=== PATIENT | male | born 1995 | race Two or more races ===

== ENCOUNTER 2024-08-18 02:51 | Emergency (ER) | payer MEDICAID, SELFPAY ==
[2024-08-18 02:59] VITALS: BP 114/65; PULSE 114; RESP 18; TEMP 36.1; O2SAT 98
[2024-08-18 03:13] VITALS: PULSE 115; RESP 18; O2SAT 99; BMI 19.3
--- NOTE | 2024-08-18 03:18 | EKG_ITS ---
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
[2024-08-18] MEDS: HYDROmorphone INJ 2 MG/ML VIAL 1 MG IVP ×2 (03:25→08:15)
[2024-08-18 03:34] LABS: Lactate (Lactic Acid) 2.4 mMol/L (0.4-2.0)
[2024-08-18 03:36] LABS: Basophils # (Auto) 0.1 Thou/mm3 (0.0-0.2); Basophils % (Auto) 1 % (0-2.5); Eosinophils # (Auto) 0.2 Thou/mm3 (0.0-0.5); Eosinophils % (Auto) 2 % (0-10); Hematocrit 26.9 % (41.0-53.0); Hemoglobin 9.2 g/dL (13.5-16.0); Immature Granulocytes % (Auto) 1 % (0-0); Immature Granulocytes Auto 0.07 Thou/mm3 (0.00-0.00); Lymphocytes # (Auto) 1.3 Thou/mm3 (1.0-4.8); Lymphocytes % (Auto) 11 % (10-50); Mean Corpuscular HGB Conc 34.2 g/dl (31.0-37.0); Mean Corpuscular Hemoglobin 32.5 pg (25.0-35.0); Mean Corpuscular Volume 95 fL (80-100); Monocytes # (Auto) 0.9 Thou/mm3 (0.0-0.8); Monocytes % (Auto) 7 % (0-12); Neutrophils # (Auto) 9.9 Thou/mm3 (1.8-7.7); Neutrophils % (Auto) 80 % (37-80); Nucleated Red Blood Cell % 0 /100 WBC (0); Platelet Count 257 Thou/mm3 (140-440); Red Blood Count 2.83 Miln/mm3 (4.50-5.90); White Blood Count 12.4 Thou/mm3 (3.8-10.6)
--- NOTE | 2024-08-18 03:37 | PD.EDRME ---
Rapid Medical Screening Exam RME Arrival date/time: 08/18/24 02:51 Chief Complaint: Abdominal Pain Time Seen by Provider: 08/18/24 03:23 Vital signs: Vital Signs Temperature 97.0 F 08/18/24 02:59 Pulse Rate 114 H 08/18/24 02:59 Respiratory Rate 18 08/18/24 02:59 Blood Pressure 114/65 08/18/24 02:59 Pulse Oximetry (%) 98 08/18/24 02:59 Oxygen Delivery Method Room Air 08/18/24 02:59 RME Narrative: 29yo male MIRELLA presents to the ED for a chief complaint of right-sided abdominal pain. Patient states he came here from [place] 2 days ago. He states he was recently discharged from a hospital there last Monday after being admitted and diagnosed with liver failure. He is not taking any pain medications at this time.
[2024-08-18 03:54] LABS: Ammonia 36 uMol/L (11-32)
[2024-08-18 03:57] LABS: Alanine Aminotransferase 15 U/L (10-49); Albumin, Serum 2.9 gm/dL (3.5-5.0); Albumin/Globulin Ratio 0.5 (1.2-2.2); Alcohol, Blood Medical < 3.0 mg/dL (0-10.0); Alkaline Phosphatase 130 U/L (46-116); Anion Gap 7 (7-16); Aspartate Amino Transferase 51 U/L (0-34); BUN/Creatinine Ratio 14 Ratio (12-20); Bilirubin,Total 5.7 mg/dL (0.3-1.2); Blood Urea Nitrogen 10 mg/dL (9-23); Calcium 8.6 mg/dL (8.3-10.6); Calcium (Corrected) 9.5 mg/dL (8.5-10.1); Carbon Dioxide 27.7 mMol/L (20.0-31.0); Cardiac Risk Estimate 7.6 RATIO (4.0-6.7); Chloride 100 mMol/L (98-107); Cholesterol 174 mg/dL (132-200); Creatinine (Component) 0.7 mg/dL (0.6-1.3); Estimated Creatinine Clearance 117.7 mL/min (>60); Globulin 5.3 gm/dL (2.3-3.5); Glucose 104 mg/dL (74-106); HDL Cholesterol 23 mg/dL (40-60); LDL Cholesterol,Calculated 131 mg/dL (0-130); Lipase 112 U/L (12-53); Osmolality,Calculated 269 (275-295); Potassium 3.4 mMol/L (3.4-5.1); Sodium 135 mMol/L (136-145); Total Protein 8.2 gm/dL (5.7-8.2); Triglycerides 99 mg/dL (30-150); eGFR > 60 See Note
[2024-08-18 04:02] LABS: Procalcitonin 0.15 ng/ml (0.0-0.49)
[2024-08-18 04:06] LABS: Sed Rate (ESR) 55 mm/hr (0-15)
--- NOTE | 2024-08-18 04:17 | PD.EDABDPN ---
ED Abdominal Pain RME/HPI General Chief Complaint: Abdominal Pain Stated complaint: ABD PAIN Time seen by provider: 08/18/24 03:23 Arrival date/time: 08/18/24 02:51 RME / HPI RME / HPI narrative: 29yo male MIRELLA presents to the ED for a chief complaint of right-sided abdominal pain. Patient states he came here from [place] 2 days ago. He states he was recently discharged from a hospital there last Monday after being admitted and diagnosed with liver failure. He is not taking any pain medications at this time. ---- Dr. Cornelius's Main ED Evaluation: Related Data Allergies Allergy/AdvReac Type Severity Reaction Status Date / Time No Known Allergies Allergy Verified 08/18/24 03:13 Review of Systems Review of Systems Systems Reviewed: All systems reviewed, normal except as documented Past Medical History Social History SMOKING STATUS: Former smoker Course Quality Measures none Orders Category Date Time Status EKG (ED ONLY) *Do not use* NOW Care 08/18/24 03:19 Active Insert IV NOW Care 08/18/24 03:20 Active EKG (ED Only) Stat Exams 08/18/24 03:18 Ordered Alcohol, Blood Medical Stat Lab 08/18/24 03:22 Completed Ammonia Stat Lab 08/18/24 03:22 Completed CBC Stat Lab 08/18/24 03:22 Completed Comprehensive Metabolic Panel Stat Lab 08/18/24 03:22 Completed Drug Screen,Urine Stat Lab 08/18/24 03:19 Ordered Lactate (Lactic Acid) Stat Lab 08/18/24 03:22 Results Lipase Stat Lab 08/18/24 03:22 Completed Lipid Panel Stat Lab 08/18/24 03:22 Completed Procalcitonin Stat Lab 08/18/24 03:22 Completed Sed Rate (ESR) Stat Lab 08/18/24 03:22 Completed Type and Screen Stat Lab 08/18/24 03:18 Ordered UA [Urinalysis] Stat Lab 08/18/24 03:19 Ordered HYDROmorphone INJ [Dilaudid Inj] Med 08/18/24 03:18 Discontinued 1 mg IVP X1 ONE Vital Signs Vital signs: Vital Signs Temperature 97.0 F 08/18/24 02:59 Pulse Rate 114 H 08/18/24 02:59 Respiratory Rate 18 08/18/24 02:59 Blood Pressure 114/65 08/18/24 02:59 Pulse Oximetry (%) 98 08/18/24 02:59 Oxygen Delivery Method Room Air 08/18/24 02:59 Pulse ox is 98% on room air, which is normal according to my interpretation. Abdominal Pain MDM Patient data External records reviewed:: [facility] previous records (Per chart review, patient has no previous ED visits or admissions to this facility.) Clinical information provided by:: patient Social determinants that could affect healthcare access:: none Patient has the following chronic illnesses:: cirrhosis How is presenting disease/condition affected by chronic disease/condition?: caused by Evaluation data The following diagnostics were reviewed and interpreted by me:: lab results Lab and/or radiology exams considered but not ordered:: none Interpretation Summary: WBC count is elevated at 12.4, HnH is stable at 9.2/26.9, Lactic Acid is elevated at 2.4, Total Bilirubin is elevated at 5.7, AST and Alkaline Phosphatase are elevated, Albumin is low at 2.9, Lipase is elevated at 112, Procalcitonin is normal, Blood alcohol is negative, according to my interpretation. Medications / Prescriptions Medications or Prescriptions considered but not ordered:: none Medication administrations:: Medication Administration History Discontinued Medications Hydromorphone HCl (Hydromorphone Inj 2 Mg/Ml Vial) 1 mg IVP X1 ONE Stop: 08/18/24 03:19 Last Admin: 08/18/24 03:25 Dose: 1 mg Documented By: DB see above Discharge Plan Prescriptions/Referrals Referrals: No Primary/Family,Physician [Primary Care Provider] - In 1 week Patient/Caregiver Discharge Instructions Print Language: [place]
[2024-08-18 04:27] VITALS: BP 130/91; PULSE 105; RESP 18; O2SAT 100
[2024-08-18] MEDS: ONDANSETRON INJ 2 MG/ML INJ 2 ML 4 MG IV (04:40)
[2024-08-18] MEDS: HYDROmorphone INJ 2 MG/ML VIAL 0.5 MG IVP (04:41)
--- NOTE | 2024-08-18 06:30 | EDNOTE_ITS ---
ED Abdominal Pain RME/HPI General Chief Complaint: Abdominal Pain Stated complaint: ABD PAIN Time seen by provider: 08/18/24 03:23 Arrival date/time: 08/18/24 02:51 Limitations: no limitations RME / HPI RME / HPI narrative: 29 year old male with history of recently diagnosed liver cirrhosis 4 months ago, s/p cholecystostomy placed ~ 1 month ago, currently on Augmentin presents to the ED BIBA for abdominal pain today. States pain is located most to the right upper quadrant that is waxing and waning, described as sharp stabbing in sensation, rating 10/10. Denies fevers, chills, sweats, chest pain, cough, shor tness of breath, vomiting, or constipation. The patient reports arriving from [place] 3 days ago, on Monday. He states that he had been consuming two 1.75L bottles of [employer] vodka daily. Approxima tely 4-5 months ago, he stopped drinking alcohol abruptly and soon after began experiencing frequent vomiting and generalized weakness. He consulted with his PCP in [place], who ordered laboratory tests. The patient was subsequently referred to [facility] in [place], [place], where he was admitted for approximately three weeks. Following discharge, he began to feel unwell again about one week later and was re-admitted for a month at [facility] in [place], [place]. During this admission, he was diagnosed with liver cirrhosis, liver failure, and cholecystitis, for which he underwent a cholecystostomy. He also received multiple blood transfusions. Four days ago, he requested to return home and was discharged, flew in three days ago. The patient had an appointment with his PCP three days ago, and medical records are pending to be faxed. Current medications include: Spiranolactone, Gabapentin, Potassium, Hydroxyzine, Augmentin, Folic acid, Lasix, Lactulose BID PCP: Dr. Munroe at [facility] Related Data Home Medications ?Medication ?Instructions ?Recorded ?Confirmed folic acid 1 mg tablet 1 mg PO QDAY 09/04/24 09/04/24 gabapentin 300 mg capsule 300 mg PO QDAY 09/04/24 09/04/24 spironolactone 25 mg tablet 25 mg PO QDAY 09/04/24 09/04/24 thiamine HCl (vitamin B1) 100 mg 100 mg PO QDAY 09/04/24 09/04/24 tablet tramadol 50 mg tablet 50 mg PO BID PRN Pain 09/04/24 09/04/24 Previous Rx's ?Medication ?Instructions ?Recorded ciprofloxacin HCl 500 mg tablet 500 mg PO BID 5 days #9 tabs 09/06/24 lactulose 20 gram/30 mL oral 10 g (15 mL) PO TID 30 days #1,350 09/06/24 solution mL linezolid 600 mg tablet 600 mg PO BID 5 days #9 tabs 09/06/24 Allergies Allergy/AdvReac Type Severity Reaction Status Date / Time No Known Allergies Allergy Unverified 09/05/24 10:01 Review of Systems Review of Systems Narrative Review of Systems: GEN: No fever, no chills, no weight loss EYES: No discharge, no visual changes, no pain HEENT: No ear pain, no congestion, no sore throat PULM: No shortness of breath, no cough, no congestion CV: No chest pain, no dyspnea on exertion, no palpitations GI: No nausea, no vomiting, no diarrhea, +pain, no constipation : No frequency, no urgency, no dysuria MUSC/SKEL: No joint pain, no back pain SKIN: No rash NEURO: No weakness, no headache Past Medical History Social History SMOKING STATUS: Former smoker ED Exam General Limitations: Present no limitations General appearance: Present alert and other (Appears generalized weak, jaundice ) Head Head exam: Present atraumatic, normocephalic and normal inspection Eye Eye exam: Present PERRL, EOMI and scleral icterus ENT ENT exam: Present normal exam, normal oropharynx and mucous membranes moist Neck Neck exam: Present normal inspection, full ROM and trachea midline Chest Chest inspection: Present normal inspection and symmetric chest wall rise Respiratory Respiratory exam: Present normal lung sounds bilaterally Cardiovascular Cardiovascular exam: Present regular rate, normal rhythm and normal heart sounds Abdominal Exam Abdominal exam: Present soft, distention (mild), tenderness (RUQ and epigastric TTP ) and normal bowel sounds; Absent guarding, rebound or Wilson's sign Extremities Exam Extremities exam: Present pedal edema (+1 ) Back Exam Back exam: Present normal inspection and full ROM Neurological Exam Neurological exam: Present alert, oriented X3 and CN II-XII intact Psychiatric Psychiatric exam: Present normal affect and normal mood Skin Skin exam: Present warm, dry, intact and other (Jaundice) Course Quality Measures none Orders Category Date Time Status CT Screening NOW Care 08/18/24 06:46 Completed EKG (ED ONLY) *Do not use* NOW Care 08/18/24 03:19 Completed Insert IV NOW Care 08/18/24 03:[address] abdomen pelvis w con Stat Exams 08/18/24 06:46 Completed EKG (ED Only) Stat Exams 08/18/24 03:18 Draft XR chest 1V portable Stat Exams 08/18/24 06:46 Completed Alcohol, Blood Medical Stat Lab 08/18/24 03:22 Completed Ammonia Stat Lab 08/18/24 03:22 Completed CBC Stat Lab 08/18/24 03:22 Completed Comprehensive Metabolic Panel Stat Lab 08/18/24 03:22 Completed Drug Screen,Urine Stat Lab 08/18/24 08:39 Completed Lactate (Lactic Acid) Stat Lab 08/18/24 03:22 Completed Lactic Acid, 3 HR Stat Lab 08/18/24 06:55 Completed Lipase Stat Lab 08/18/24 03:22 Completed Lipid Panel Stat Lab 08/18/24 03:22 Completed Procalcitonin Stat Lab 08/18/24 03:22 Completed Sed Rate (ESR) Stat Lab 08/18/24 03:22 Completed Type and Screen Stat Lab 08/18/24 03:22 Completed UA [Urinalysis] Stat Lab 08/18/24 08:39 Completed HYDROmorphone INJ [Dilaudid Inj] Med 08/18/24 04:27 Discontinued 0.5 mg IVP X1 ONE HYDROmorphone INJ [Dilaudid Inj] Med 08/18/24 03:18 Discontinued 1 mg IVP X1 ONE HYDROmorphone INJ [Dilaudid Inj] Med 08/18/24 08:08 Discontinued 1 mg IVP X1 ONE Hydromorphone HCl [Dilaudid] Med 08/18/24 09:59 Discontinued 2 mg PO X1 ONE Ondansetron Inj [Zofran Inj] Med 08/18/24 04:27 Discontinued 4 mg IV X1 ONE Ondansetron Inj [Zofran Inj] Med 08/18/24 04:28 Discontinued 4 mg IV X1 ONE Reevaluation(s) Reevaluation #1: Patient remains clinically stable throughout the emergency department visit. We reviewed all the results, analysis, and treatment plans. Patient is amenable to discharge. Strict return precautions were outlined. Patient was discharged in stable condition. Time: 10:00 Vital Signs Vital signs: Vital Signs Temperature 97.0 F 08/18/24 02:59 Pulse Rate 114 H 08/18/24 02:59 Respiratory Rate 18 08/18/24 02:59 Blood Pressure 114/65 08/18/24 02:59 Pulse Oximetry (%) 98 08/18/24 02:59 Oxygen Delivery Method Room Air 08/18/24 02:59 Pulse ox is 98% on room air which is adequate. Abdominal Pain MDM MDM Narrative MDM Narrative:: Kavya Carrion am scribing for and in the presence of Dr. Schmitz. Patient data External records reviewed:: None (No previous records for review ) Clinical information provided by:: patient Social determinants that could affect healthcare access:: none (Former alcohol abuse, quit 4-5 months ago ) Patient has the following chronic illnesses:: recently diagnosed liver cirrhosis 4 months ago, s/p cholecystostomy placed ~ 1 month ago, currently on Augmentin How is presenting disease/condition affected by chronic disease/condition?: exacerbated by Evaluation data The following diagnostics were reviewed and interpreted by me:: lab results, radiology exam(s) and EKG tracing(s) (Sinus tachycardia, rate 104, left axis devition, no ectopy, generalized ST abdnormalities, no ischemia ) Lab and/or radiology exams considered but not ordered:: None Interpretation Summary: Ordering Physician: Nitin Schmitz MD Date of Service: 08/18/24 Procedure(s): CT abdomen pelvis w con Accession Number(s): [id number] cc: Jhony Paula MD; NO PRIMARY/FAMILY,PHYSICIAN; Nitin Schmitz MD~ Examination: CT abdomen with intravenous contrast CT pelvis with intravenous contrast 2-D coronal reconstructions 2-D sagittal reconstructions Date and time of exam:August 18, 2024 0731 hrs. Indications: Cirrhosis, status post drain placement biliary drainage tube 4 weeks ago, onset right upper abdominal pain beginning last night. CTDI: vol (mGy) 5.65 DLP: (mGycm) 293 Technique: Multiple axial sections of the abdomen and pelvis have been obtained. 64 slice high-resolution scanner used. 3 mm axial sections have been obtained, post intravenous injection 60 cc Isovue-370 2-D sagittal, coronal reconstructions obtained. Low dose protocols were performed. One or more of the following dose reduction techniques were used; automated exposure control, adjustment of the mA and/or KV according to patient size, use of iterative reconstruction technique. Findings: Atelectasis versus pneumonia right base with large right pleural effusion Cirrhosis, liver nodular in contour Right percutaneous cholecystostomy drainage catheter in satisfactory position with collapse of the gallbladder Prominent splenomegaly with portosystemic collateral vessels medial to the spleen Esophageal and perigastric varices, mild to moderate ascites No pancreatic mass Moderate renal parenchymal scar formation Aorta normal size Anasarca Normal appendix No bowel obstruction Urinary bladder intact No prostatomegaly Mild osteopenia Impression: Atelectasis versus pneumonia right base with large right pleural effusion Cirrhosis, mild to moderate ascites Esophageal and perigastric varices Right percutaneous cholecystostomy drainage tube in satisfactory position with collapse of the gallbladder Dictated By: Jhony Paula MD Signed By: <Electronically signed by Jhony Paula MD in [place]> 08/18/24 0751 ======== === Ordering Physician: Nitin Schmitz MD Date of Service: 08/18/24 Procedure(s): XR chest 1V portable Accession Number(s): [id number] cc: Jhony Paula MD; NO PRIMARY/FAMILY,PHYSICIAN; Nitin Schmitz MD~ Examination: AP chest single view Technique: AP portable upright chest single view Exam date and time: August 18, 2024 at 0710 hrs. Indications: Right upper abdominal pain today. Findings: Normal heart size Large right pleural effusion Atelectasis and/or pneumonia right lung Left lung clear No pulmonary edema Impression: Large right pleural effusion Atelectasis and/or pneumonia right lung Dictated By: Jhony Paula MD Signed By: <Electronically signed by Jhony Paula MD in [place]> 08/18/24 0752 Medications / Prescriptions Medications or Prescriptions considered but not ordered:: None Medication administrations:: Medication Administration History Discontinued Medications Hydromorphone HCl (Hydromorphone Inj 2 Mg/Ml Vial) 1 mg IVP X1 ONE Stop: 08/18/24 03:19 Last Admin: 08/18/24 03:25 Dose: 1 mg Documented By: DAVID Hydromorphone HCl (Hydromorphone Inj 2 Mg/Ml Vial) 0.5 mg IVP X1 ONE Stop: 08/18/24 04:28 Last Admin: 08/18/24 04:41 Dose: 0.5 mg Documented By: JOHN Hydromorphone HCl (Hydromorphone Inj 2 Mg/Ml Vial) 1 mg IVP X1 ONE Stop: 08/18/24 08:09 Last Admin: 08/18/24 08:15 Dose: 1 mg Documented By: GUTIERREZ Hydromorphone HCl (Hydromorphone Hcl 2 Mg Tablet) 2 mg PO X1 ONE Stop: 08/18/24 10:00 Last Admin: 08/18/24 10:27 Dose: 2 mg Documented By: GUTIERREZ Ondansetron HCl (Ondansetron Inj 2 Mg/Ml Inj 2 Ml) 4 mg IV X1 ONE; Protocol Stop: 08/18/24 04:28 Last Admin: 08/18/24 04:40 Dose: 4 mg Documented By: JOHN Ondansetron HCl (Ondansetron Inj 2 Mg/Ml Inj 2 Ml) 4 mg IV X1 ONE; Protocol Stop: 08/18/24 04:29 Last Admin: 08/18/24 06:23 Dose: Not Given Documented By: JOHN Non-Admin Reason: Duplicate Medication on eMAR See above Consultations Consultation(s) initiated? (list below): No Diagnosis Differential diagnosis abdominal pain: abdominal pain, calculus of kidney, constipation, pancreatitis and small bowel obstruction Most likely diagnosis given after review of the tests above:: Liver cirrhosis Ascites Pleural effusion Admission Indicated Admission indicated?: not indicated Admission Request Was there a request for admission?: No Disposition Plan Disposition Plan: Discharge Discharge Attestation Discharge Attestation: The patient and all family members were given an opportunity to ask questions and understood the discharge instructions. Discharge instructions specifically effects, indications for sooner follow up or return to the emergency department, and the expected course of current diagnosis. Patient condition: Stable Discharge Plan Plan Patient Disposition: HOME (Self Care) Disposition Comment: Stable for discharge Patient condition on transfer: Stable Prescriptions/Referrals Prescriptions/Med Rec: No Action thiamine HCl (vitamin B1) 100 mg tablet 100 mg PO QDAY Patient Comments: TAKE 1 TABLET BY MOUTH EVERY DAY FOR 30 DAYS tramadol 50 mg tablet 50 mg PO BID PRN (Reason: Pain) Patient Comments: TAKE 1 TABLET BY MOUTH TWICE A DAY NEEDED FOR PAIN FOR 15 DAYS spironolactone 25 mg tablet 25 mg PO QDAY Patient Comments: TAKE 1 TABLET BY MOUTH EVERY DAY FOR 30 DAYS gabapentin 300 mg capsule 300 mg PO QDAY Patient Comments: TAKE 1 CAPSULE BY MOUTH EVERY DAY FOR 30 DAYS folic acid 1 mg tablet 1 mg PO QDAY Patient Comments: TAKE 1 TABLET BY MOUTH EVERY DAY FOR 30 DAYS ciprofloxacin HCl 500 mg tablet 500 mg PO BID 5 Days Qty: 9 0RF linezolid 600 mg Tablet 600 mg PO BID 5 Days Qty: 9 0RF lactulose 20 gram/30 mL Solution 10 g PO TID 30 Days Qty: 1350 0RF Referrals: Michael Munroe MD [Physician] - In 1 week Problem List Clinical Impression: Cirrhosis, Pleural effusion, Ascites Patient/Caregiver Discharge Instructions Discharge Activity: activity as tolerated Education Materials: Pleural Effusion, Understanding Cirrhosis, ED Ascites, ED Cirrhosis, ED Pleural Effusion Additional Instructions: Return to the emergency department for any worsening or any further medical problems You should follow-up with Dr. Munroe on Monday. [facility] openings at 11 AM. You should go there and get your prescription for tramadol. This is a pain medication. Today your test showed that you have a right-sided pleural effusion which is a collection of fluid in your chest, you have a little bit of fluid collection in your abdomen, the biliary drain you have is in the correct position and is functioning properly, you do not have any signs of infection or any other major medical problems going on. But if you feel worse in any way he should come back to the ER and will help Print Language: [place] Island[place] Stand Alone Forms: [employer] Award Info., Patient Portal Info Letter
[2024-08-18 06:31] LABS: Reflex Lactate? Y
--- NOTE | 2024-08-18 06:46 | XR_ITS ---
Examination: CT abdomen with intravenous contrast CT pelvis with intravenous contrast 2-D coronal reconstructions 2-D sagittal reconstructions Date and time of exam:August 18, 2024 0731 hrs. Indications: Cirrhosis, status post drain placement biliary drainage tube 4 weeks ago, onset right upper abdominal pain beginning last night. CTDI: vol (mGy) 5.65 DLP: (mGycm) 293 Technique: Multiple axial sections of the abdomen and pelvis have been obtained. 64 slice high-resolution scanner used. 3 mm axial sections have been obtained, post intravenous injection 60 cc Isovue-370 2-D sagittal, coronal reconstructions obtained. Low dose protocols were performed. One or more of the following dose reduction techniques were used; automated exposure control, adjustment of the mA and/or KV according to patient size, use of iterative reconstruction technique. Findings: Atelectasis versus pneumonia right base with large right pleural effusion Cirrhosis, liver nodular in contour Right percutaneous cholecystostomy drainage catheter in satisfactory position with collapse of the gallbladder Prominent splenomegaly with portosystemic collateral vessels medial to the spleen Esophageal and perigastric varices, mild to moderate ascites No pancreatic mass Moderate renal parenchymal scar formation Aorta normal size Anasarca Normal appendix No bowel obstruction Urinary bladder intact No prostatomegaly Mild osteopenia Impression: Atelectasis versus pneumonia right base with large right pleural effusion Cirrhosis, mild to moderate ascites Esophageal and perigastric varices Right percutaneous cholecystostomy drainage tube in satisfactory position with collapse of the gallbladder
--- NOTE | 2024-08-18 06:46 | XR_ITS ---
Examination: AP chest single view Technique: AP portable upright chest single view Exam date and time: August 18, 2024 at 0710 hrs. Indications: Right upper abdominal pain today. Findings: Normal heart size Large right pleural effusion Atelectasis and/or pneumonia right lung Left lung clear No pulmonary edema Impression: Large right pleural effusion Atelectasis and/or pneumonia right lung
[2024-08-18 06:53] VITALS: BP 113/81; PULSE 101; RESP 20; TEMP 37.1; O2SAT 100
[2024-08-18 07:11] LABS: Lactic Acid, 3 HR 1.6 mMol/L (0.4-2.0)
[2024-08-18 08:15] VITALS: BP 106/68; PULSE 95; RESP 20; TEMP 36.7; O2SAT 99
[2024-08-18 09:01] LABS: Collection Type, Urine Clean Catch
[2024-08-18 09:26] LABS: Amphetamine/Methamp Scrn,U Negative (Negative); Barbiturate Screen,Urine Negative (Negative); Benzodiazepines Screen,Urine Negative (Negative); Benzoylecgonine Screen, Ur Negative (Negative); Fentanyl Screen,Urine Negative (Negative); Opiate Screen,Urine Positive (Negative); THC Screen,Urine Positive (Negative)
[2024-08-18 09:30] LABS: Bilirubin,Urine Negative (Negative); Blood,Urine Negative (Negative); Color,Urine Yellow (Lt Yel-Yel); Glucose, Urine Negative (Negative); Ketones,Urine Negative (Negative); Leukocyte Esterase,Urine Negative (Negative); Nitrite,Urine Negative (Negative); Protein,Urine 1+ (Neg - Trace); RBC,Urine 1 /hpf (0-3); Specific Gravity,Urine 1.021 (1.001-1.035); Squamous Epithelial Cell,Urine < 1 /hpf (0-5); Transitional Epi Cells,Urine < 1 /hpf (0-5); Urobilinogen,Urine Negative mg/dL (0.0-1.0); WBC,Urine 1 /hpf (0-5)
[2024-08-18 09:34] LABS: Clarity,Urine Clear (Clear/Hazy)
[2024-08-18 10:20] VITALS: BP 117/74; PULSE 96; RESP 17; O2SAT 99
[2024-08-18] MEDS: HYDROMORPHONE HCL 2 MG TABLET PO (10:27)
== END 2024-08-18 10:37 | disposition home or self-care (01) ==
PROVIDERS: Emergency Medicine; Emergency Provider Emergency Medicine
DX: K74.60 Unspecified cirrhosis of liver (principal); R18.8 Other ascites; J90 Pleural effusion, not elsewhere classified; I85.00 Esophageal varices without bleeding; I86.4 Gastric varices; R00.0 Tachycardia, unspecified; Z87.891 Personal history of nicotine dependence
CPT/HCPCS: 36415; 71045; 74177; 80053; 80061; 80307; 80320; 81001; 82140; 83605; 83690; 84145; 85025; 85652; 86850; 86900; 86901; 93005; 96374; 96375; 96376; 99285; A4649; J2405; J3490; Q9967; A9270; G0480

== ENCOUNTER 2024-08-28 14:15 | Inpatient (IN) | payer MEDICAID, SELFPAY ==
[2024-08-28] VITALS (10 sets, daily range): BP systolic 101–120; BP diastolic 61–79; PULSE 80–120; RESP 18–97; TEMP 36.7–37.9; O2SAT 97–100
--- NOTE | 2024-08-28 14:36 | XR_ITS ---
Examination: CT abdomen with intravenous contrast CT pelvis with intravenous contrast 2-D coronal reconstructions 2-D sagittal reconstructions Date and time of exam:August 28, 2024 1637 hours Comparison August 18, 2024 INDICATIONS: Diagnosis cirrhosis, onset abdominal pain today. CTDI: vol (mGy) 5.10 DLP: (mGycm) 315 Technique: Multiple axial sections of the abdomen and pelvis have been obtained. 64 slice high-resolution scanner used. 3 mm axial sections have been obtained, post intravenous injection 60 cc Isovue-370 2-D sagittal, coronal reconstructions obtained. Low dose protocols were performed. One or more of the following dose reduction techniques were used; automated exposure control, adjustment of the mA and/or KV according to patient size, use of iterative reconstruction technique. Findings: Large right pleural effusion, atelectasis versus pneumonia right base Cirrhosis, liver irregular in contour Cholecystostomy drainage tube satisfactory position with collapse of the gallbladder Prominent splenomegaly Esophageal varices Perigastric varices Mucosal fold thickening in the stomach No pancreatic mass Mild ascites No hydronephrosis Colonic diverticulosis, no diverticulitis No bowel obstruction No bladder mass No prostatomegaly IMPRESSION: Large right pleural effusion Atelectasis versus pneumonia right base Cirrhosis Prominent splenomegaly Esophageal varices, History varices, gastritis pattern Cholecystostomy drainage catheter satisfactory position with collapse of the gallbladder
--- NOTE | 2024-08-28 14:37 | XR_ITS ---
Examination: AP lateral chest 2 views TECHNIQUE: Upright AP lateral chest 2 views Exam date and time: August 28, 2024 1541 hours INDICATIONS: Leaking from the gallbladder drains 2 3 days FINDINGS: Large right pleural effusion Normal heart size No lobar pneumonia IMPRESSION: Large right pleural effusion
--- NOTE | 2024-08-28 14:38 | PD.EDRME ---
Rapid Medical Screening Exam RME Arrival date/time: 08/28/24 14:15 29-year-old male with medical history significant for cirrhosis with right percutaneous cholecystostomy drainage tube presents with complaints of drainage and pain Chief Complaint: Wound Recheck / Suture Removal Time Seen by Provider: 08/28/24 14:21 Vital signs: Vital Signs Temperature 100.2 F 08/28/24 14:29 Pulse Rate 120 H 08/28/24 14:29 Respiratory Rate 18 08/28/24 14:29 Blood Pressure 120/79 08/28/24 14:29 Pulse Oximetry (%) 100 08/28/24 14:29 Oxygen Delivery Method Room Air 08/28/24 14:29
--- NOTE | 2024-08-28 14:41 | PD.EDADULT ---
ED General RME/HPI General Chief complaint: Wound Recheck / Suture Removal Stated complaint: Possible infection to wound right abdominal incisi Time Seen by Provider: 08/28/24 14:21 Arrival date/time: 08/28/24 14:15 RME / HPI RME / HPI narrative: 08/28/24 14:15 29-year-old male with medical history significant for cirrhosis with right percutaneous cholecystostomy drainage tube presents with complaints of drainage and pain DR. DENIS MAIN ED EVALUATION: 29 year old male with history of liver failure, liver cirrhosis, cholecystitis, s/p cholecystostomy placed ~ 2 months ago presents to the ED for concerns of the cholecystostomy tube leaking. Reports there is green orange material leaking from the cholecystostomy site that began 2 days ago. Accompanied by pain and discomfort to the surrounding area. Denies fevers, chills, sweats, vomiting, diarrhea, or urinary symptoms. Related Data Allergies Allergy/AdvReac Type Severity Reaction Status Date / Time NKA* Allergy Uncoded 08/23/24 08:26 Review of Systems Review of Systems Narrative Review of Systems: Constitutional: DENIES; Fevers Eyes: DENIES; Loss of vision Head/Ear/Nose: DENIES; Loss of hearing Throat: DENIES; Dysphagia Cardiovascular: DENIES; Chest pain, dyspnea or syncope Respiratory: DENIES; Shortness of breath Gastrointestinal: SEE HPI +abd pain with drainage from the cholecystostomy tube DENIES; Rectal bleeding or melena. Genitourinary: DENIES; Dysuria (painful or difficult urination) Musculoskeletal: DENIES; Arthralgia (pain in a joint),; Skin: DENIES; Rash Neurological: DENIES; Loss of function or movement Psychiatric: DENIES; recent major life stressor, emotional problem, illicit drug use or abuse Endocrinology: DENIES; Weight change Hematologic/Lymphatic: DENIES; Abnormal bruising Allergic/Immunologic: DENIES; Urticaria (hives) Past Medical History Past Medical History CARDIAC: Negative Cardiac Disorders or Congestive Heart Failure RESPIRATORY: Negative Chronic Obstructive Pulmonary Disease (COPD) or Asthma GASTROINTESTINAL: Positive Cirrhosis GENITOURINARY: Negative Renal Disease ENDOCRINE: Negative Diabetes Mellitus Type 1 or Diabetes Mellitus Type 2 HEMATOLOGIC: Negative Sickle Cell Disease Social History SMOKING STATUS: Never smoker ED Exam Narrative Physical exam: Physical Exam: General: The vital signs were reviewed. Hyperpigmented thin facies with temporal wasting and appears chronically ill the patient is non-toxic, in no apparent distress and appears healthy with a patent airway, no respiratory distress and has no apparent circulatory problems. Head & Scalp: Normocephalic, atraumatic. Face: Appears normal and is without lesions, deformity. Ears: Left external pinna appears normal. Right external pinna appears normal. Eyes: The sclera is anicteric. No obvious photophobia. The Left and Right Orbit/Lid/Conjunctiva appears normal without swelling, discoloration or injection. Nose: The nose is without deformity, discharge or tenderness; Throat: Appears normal. The mucous membranes are pink and moist without exudates, redness or mass seen. The tongue appears normal. Neck: The neck is supple and no apparent mass or adenopathy. Chest: The chest wall is normal in size and symmetry and has no chest wall tenderness or crepitus. The patient displays normal ventilator effort without retractions, accessory muscle use and has adequate air movement bilaterally with no wheezes and no rales. Cardiovascular: Regular rate and rhythm; No murmurs, rubs, or gallops; Gastrointestinal: The abdomen appears normal. No obvious hernias or mass. The abdomen as a drain coming from the right upper quadrant dissolving a cystostomy drain. Otherwise the remaining abdomen is soft and benign, non-distended, with no pain, no guarding and no rebound tenderness. Bowel sounds are present and normal sounding. No CVA tenderness. Genitourinary: Normal inspection Back/Spine: Nontender Extremities/Musculoskeletal/lymphatic: The bilateral upper and lower extremities are warm. There is no evidence of arterial insufficiency. There is no evidence of venous insufficiency/edema. The patient spontaneously moves bilateral upper and lower extremities with no pain and no limitation of movement. There is no apparent, injury or trauma. Skin: The skin is warm, dry and intact. No rashes. No petechia. No purpura. No abnormal bruising. The color is appropriate with no cyanosis. Scattered spider angiomata Mental status/Psychiatric: Mental status is appropriate for age. The patient has no apparent delusions, visual hallucinations, no apparent audible hallucinations. The patient has no apparent suicidal thoughts/ideation and no apparent homicidal thoughts/ideation. Neurological: The patient is awake, alert, interactive, cordial, cooperative and is oriented to name and situation. The patient follows commands and answers historical question with no impairment. There is no visual disturbance apparent. The pupils are equal and reactive bilaterally with normal eye movements and no diplopia The bilateral upper and lower extremities have normal strength, normal range of motion and normal functioning. The gait, station and balance appear to be baseline with no acute change Course Quality Measures none Orders Category Date Time Status Bedside Blood Glucose NOW Care 08/28/24 14:[address] Screening NOW Care 08/28/24 14:36 Active Insert IV NOW Care 08/28/24 14:37 Active MRI Screening NOW Care 08/28/24 17:[address] abdomen pelvis w con Stat Exams 08/28/24 14:[address] head/brain wo con Stat Exams 08/28/24 14:48 Completed MR head/brain wo con Stat Exams 08/28/24 Ordered XR chest 2V Stat Exams 08/28/24 14:37 Completed Alcohol, Blood Medical Stat Lab 08/28/24 15:10 Completed Ammonia Stat Lab 08/28/24 15:10 Completed B-Type Natriuretic Peptide Stat Lab 08/28/24 15:10 Completed Blood Culture (Lab) Stat Lab 08/28/24 15:10 Received CBC Stat Lab 08/28/24 15:10 Completed Comprehensive Metabolic Panel Stat Lab 08/28/24 15:10 Completed Drug Screen,Urine Stat Lab 08/28/24 15:48 Completed Lactic Acid [Lactate (Lactic Acid)] Stat Lab 08/28/24 15:10 Results Partial Thromboplastin Time Stat Lab 08/28/24 15:10 Completed Procalcitonin Stat Lab 08/28/24 15:10 Completed Prothrombin Time with INR Stat Lab 08/28/24 15:10 Completed Troponin I Stat Lab 08/28/24 15:10 Completed Type and Screen Stat Lab 08/28/24 15:10 Completed Urinalysis Stat Lab 08/28/24 15:48 Completed Urinalysis, C/S if Indicated Stat Lab 08/28/24 15:48 Completed Piper/Tazo 3.375 gm [Zosyn] Med 08/28/24 14:48 Discontinued 3.375 gm in 50 ml IV X1 Sodium Chloride 0.9% 1000 ml [Ns] 1,000 ml Med 08/28/24 14:48 Discontinued IV 1,000 mls/hr Sodium Chloride 0.9% 1000 ml [Ns] 2,000 ml Med 08/28/24 14:48 Active IV 150 mls/hr Vital Signs Vital signs: Vital Signs Temperature 100.2 F 08/28/24 14:29 Pulse Rate 120 H 08/28/24 14:29 Respiratory Rate 18 08/28/24 14:29 Blood Pressure 120/79 08/28/24 14:29 Pulse Oximetry (%) 100 08/28/24 14:29 Oxygen Delivery Method Room Air 08/28/24 14:29 Pulse ox is 100% on room air which is adequate. [facility] Patient data External records reviewed:: [facility] previous records (I reviewed ED visit on 08/18/2024) Clinical information provided by:: patient Social determinants that could affect healthcare access:: alcohol use (Former alcohol use ) Patient has the following chronic illnesses:: liver failure, liver cirrhosis, cholecystitis, s/p cholecystostomy placed ~ 2 months ago How is presenting disease/condition affected by chronic disease/condition?: exacerbated by Evaluation data The following diagnostics were reviewed and interpreted by me:: lab results and radiology exam(s) Lab and/or radiology exams considered but not ordered:: None Interpretation Summary: Ordering Physician: Mckenna LAM)Junior NP Date of Service: 08/28/24 Procedure(s): XR chest 2V Accession Number(s): [id number] cc: Mckenna LAM)Junior NP; Jhony Paula MD~ Examination: AP lateral chest 2 views TECHNIQUE: Upright AP lateral chest 2 views Exam date and time: August 28, 2024 1541 hours INDICATIONS: Leaking from the gallbladder drains 2 3 days FINDINGS: Large right pleural effusion Normal heart size No lobar pneumonia IMPRESSION: Large right pleural effusion Dictated By: Jhony Paula MD Signed By: <Electronically signed by Jhony Paula MD in OV> 08/28/24 1504 Ordering Physician: Junior Andres NP, NP Date of Service: 08/28/24 Procedure(s): CT abdomen pelvis w con Accession Number(s): [id number] cc: Mckenna (HI),Junior DO; Michael Munroe MD; Jhony Paula MD~ Examination: CT abdomen with intravenous contrast CT pelvis with intravenous contrast 2-D coronal reconstructions 2-D sagittal reconstructions Date and time of exam:August 28, 2024 1637 hours Comparison August 18, 2024 INDICATIONS: Diagnosis cirrhosis, onset abdominal pain today. CTDI: vol (mGy) 5.10 DLP: (mGycm) 315 Technique: Multiple axial sections of the abdomen and pelvis have been obtained. 64 slice high-resolution scanner used. 3 mm axial sections have been obtained, post intravenous injection 60 cc [id number] 2-D sagittal, coronal reconstructions obtained. Low dose protocols were performed. One or more of the following dose reduction techniques were used; automated exposure control, adjustment of the mA and/or KV according to patient size, use of iterative reconstruction technique. Findings: Large right pleural effusion, atelectasis versus pneumonia right base Cirrhosis, liver irregular in contour Cholecystostomy drainage tube satisfactory position with collapse of the gallbladder Prominent splenomegaly Esophageal varices Perigastric varices Mucosal fold thickening in the stomach No pancreatic mass Mild ascites No hydronephrosis Colonic diverticulosis, no diverticulitis No bowel obstruction No bladder mass No prostatomegaly IMPRESSION: Large right pleural effusion Atelectasis versus pneumonia right base Cirrhosis Prominent splenomegaly Esophageal varices, History varices, gastritis pattern Cholecystostomy drainage catheter satisfactory position with collapse of the gallbladder Dictated By: Jhony Paula MD Signed By: <Electronically signed by Jhony Paula MD in OV> 08/28/24 1702 Ordering Physician: John Denis MD Date of Service: 08/28/24 Procedure(s): CT head/brain wo con Accession Number(s): [id number] cc: Michael Munroe MD; John Denis MD; Jhony Paula MD~ Examination: CT brain head without contrast. 2-D sagittal coronal reconstructions Date and time of exam:August 28, 2024 1626 hours INDICATIONS: Loss of consciousness episode today CTDI: vol (mGy):45.7 DLP: (mGycm):935 Technique: Multiple CT axial sections of the brain have been obtained, 5 mm slice thickness. Contrast has not been administered. 2-D sagittal, coronal reconstructions have been obtained Low dose protocols were performed. One or more of the following dose reduction techniques were used; automated exposure control, adjustment of the mA and/or KV according to patient size, use of iterative reconstruction technique. Findings: No significant ventricular enlargement. Mildly hyperdense rounded area in the left brainstem pontine level, axial image 30, measuring 17 mm Intra-axial or extra-axial hemorrhage density is not seen. No mass effect or midline shift Basal cisterns are not remarkable. Fourth ventricle is midline. Cranial vault intact. Impression: Suspicious for left brainstem mass, pontine level, axial image 30, recommend brain MRI pre and post contrast follow-up Dictated By: Jhony Paula MD Signed By: <Electronically signed by Jhony Paula MD in OV> 08/28/24 1651 Medications Medications considered but not ordered:: None Medication administrations:: Medication Administration History Sodium Chloride (Ns) 2,000 mls @ 150 mls/hr IV .[id number] ONE Stop: 08/29/24 04:07 Discontinued Medications Sodium Chloride (Ns) 1,000 mls @ 1,000 mls/hr IV .Q1H ONE Stop: 08/28/24 15:47 Last Admin: 08/28/24 16:00 Dose: 1,000 mls/hr Documented By: DO Piperacillin/Tazobactam/Dextrose (Zosyn) 3.375 gm in 50 mls @ 100 mls/hr IV X1 ONE Stop: 08/28/24 15:17 Last Admin: 08/28/24 16:01 Dose: 100 mls/hr Documented By: DO See above Consultations Consultation(s) initiated? (list below): Yes Consultation #1 (Physician, Specialty, Details): I spoke with resident Dr. Altamirano working with Dr. Silva. Discussed patients PMHx, HPI, ED course, exam findings, labs, and radiology results. Will come evaluate the patient in the ED. Time: 17:34 Diagnosis Differential Diagnosis ED Complaint MDM: Sepsis, pneumonia, infected pleural effusion, cholecystitis, ascites Most likely diagnosis given after review of the tests above:: Fever Cirrhosis pleural effusion on right History of alcohol abuse Cholecystostomy tube Admission Indicated Admission indicated?: indicated Explain why admission is indicated or not indicated:: Further evaluation and treatment of fevers Admission Request Was there a request for admission?: Yes Admission Attestation Admission request attestation: Discussed case with [] from Hospitalist service regarding admission. Discussed patients ED course, exam findings, labs, and radiology results. The Hospitalist [agrees,declines] to accept the patient for admission. Disposition Plan Disposition Plan: Admit Medical Decision Making MDM Narrative MDM Narrative: Patient is a 29-year-old with cirrhosis who had a cystostomy tube placed 2 months ago when he was living in [place] presumably for an infected gallbladder and he was not a surgical candidate due to his cirrhosis. Patient comes in today complaining that his drainage tube actually has and is noted that his heart rate was 120 and his temperature was 100.4 and clearly he has some infection going on. He is complaining of right upper quadrant tenderness. Medical workup reveals a chest x-ray reveals a obvious pleural effusion in the right lung feeling up at least 1/3 to 40% of the thorax on the right side. Lateral film shows the middle lobe silhouette highlighted either from fluid or or pneumonia which cannot be excluded at this time Patient is got ascites but his belly seems to be soft and benign in the mid and lower portions ruling out acute peritonitis. Patient has no cough and there is been no sputum cannot exclude ascending cholangitis also Initial labs shows lactic acid to be elevated at 2.7. PT/INR 16.5 and 1.6. Sodium 134 potassium 3.6 chloride 100 CO2 23.8 BUN 13 creatinine 0.8 white count is 11.7 hemoglobin is 10.4 with an MCV of 93. Urinalysis came back essentially negative. In summary the patient is a cirrhotic immunocompromise with a cystostomy tube in place right pleural effusion and ascites with a fever and tachycardia head was done. Incidentally while the patient has no headache CT of the brain was ordered and reveals a questionable brainstem mass and was asked to clarify this further so an MRI is pending. The resident on-call was informed of this and they will be admitting her come down evaluate. Differential Diagnosis Differential Diagnosis: Sepsis, pneumonia, infected pleural effusion, cholecystitis, ascites Lab Data 08/28/24 15:10 08/28/24 15:10 Labs: Lab Results 08/28/24 08/28/24 Range/Units 15:10 15:48 WBC 11.7 H (3.8-10.6) Thou/mm3 RBC 3.20 L (4.50-5.90) Miln/mm3 Hgb 10.4 L (13.5-16.0) g/dL Hct 29.9 L (41.0-53.0) % MCV 93 (80-100) fL MCH 32.5 (25.0-35.0) pg MCHC 34.8 (31.0-37.0) g/dl RDW Std Deviation 49.9 H (35.1-43.9) fL Plt Count 194 D (140-440) Thou/mm3 Neut % (Auto) 80 (37-80) % Lymph % (Auto) 9 L (10-50) % Pope % (Auto) 7 (0-12) % Eos % (Auto) 2 (0-10) % Baso % (Auto) 1 (0-2.5) % Neut # (Auto) 9.4 H (1.8-7.7) Thou/mm3 Lymph # (Auto) 1.1 (1.0-4.8) Thou/mm3 Pope # (Auto) 0.8 (0.0-0.8) Thou/mm3 Eos # (Auto) 0.3 (0.0-0.5) Thou/mm3 Baso # (Auto) 0.1 (0.0-0.2) Thou/mm3 Immature Gran # (Auto) 0.08 H (0.00-0.00) Thou/mm3 Absolute Nucleated RBC 0.00 (0.00-0.00) Thou/mm3 Immature Gran % 1 H (0-0) % Nucleated RBC % 0 (0) /100 WBC PT 16.5 H (9.0-12.2) Seconds INR 1.6 H (0.9-1.3) APTT 31.9 (22.0-36.0) Seconds Sodium 134 L (136-145) mMol/L Potassium 3.6 (3.4-5.1) mMol/L Chloride 100 (98-107) mMol/L Carbon Dioxide 23.8 (20.0-31.0) mMol/L Anion Gap 10 (7-16) BUN 13 (9-23) mg/dL Creatinine 0.8 (0.6-1.3) mg/dL Estim Creat Clear Calc 103.0 (>60) mL/min eGFR > 60 (60 - ) See Note BUN/Creatinine Ratio 16 (12-20) Ratio Glucose 92 (74-106) mg/dL Calculated Osmolality 268 L (275-295) Lactic Acid 2.7 H (0.4-2.0) mMol/L Calcium 8.9 (8.3-10.6) mg/dL Corrected Calcium 9.5 (8.5-10.1) mg/dL Total Bilirubin 4.7 H (0.3-1.2) mg/dL AST 96 H (0-34) U/L ALT 40 (10-49) U/L Alkaline Phosphatase 145 H (46-116) U/L Ammonia 63 H (11-32) uMol/L Troponin I < 0.002 (0.0-0.045) ng/mL B-Natriuretic Peptide 127 H (0-100) pg/mL Total Protein 8.8 H (5.7-8.2) gm/dL Albumin 3.2 L (3.5-5.0) gm/dL Globulin 5.6 H (2.3-3.5) gm/dL Albumin/Globulin Ratio 0.6 L (1.2-2.2) Procalcitonin 0.19 (0.0-0.49) ng/ml Ur Collection Type Clean Catch Urine Color Yellow (Lt Yel-Yel) Urine Clarity Turbid A (Clear/Hazy) Urine pH 5.0 (5.0-7.0) Ur Specific Brea 1.016 (1.001-1.035) Urine Protein Negative (Neg - Trace) Urine Glucose (UA) Negative (Negative) Urine Ketones Negative (Negative) Urine Blood Negative (Negative) Urine Nitrite Negative (Negative) Urine Bilirubin Negative (Negative) Urine Urobilinogen (Auto) Negative (0.0-1.0) mg/dL Ur Leukocyte Esterase Negative (Negative) Urine RBC 4 H (0-3) /hpf Urine WBC 5 (0-5) /hpf Ur Squamous Epith Cells 0 (0-5) /hpf Calcium Oxalate Crystal 2+ A (None) Urine Bacteria None (None) Hyaline Casts < 1 (0-1) /hpf Ur Culture Indicated? Not Indicated Urine Opiates Screen Negative (Negative) Urine Fentanyl Screen Negative (Negative) Ur Barbiturates Screen Negative (Negative) U Amphetamin/Meth Scrn Negative (Negative) U Benzodiazepines Scrn Negative (Negative) U Cocaine Metab Screen Negative (Negative) U Marijuana (THC) Screen Negative (Negative) Ethyl Alcohol < 10.0 (0-10.0) mg/dL Blood Type O Positive Antibody Screen NEGATIVE Blood Bank Wristband ID Yes Discharge Plan Plan Patient Disposition: Admit Acute Care w/in Hospital Disposition Comment: Hospitalist to admit Prescriptions/Referrals Referrals: Michael Munroe MD [Primary Care Provider] - In 1 week Problem List Clinical Impression: Fever, Cirrhosis, Pleural effusion on right, History of alcohol abuse, History of insertion of cholecystostomy tube, Hx of ascites Patient/Caregiver Discharge Instructions Print Language: Italian Stand Alone Forms: Yesenia Award Info., Patient Portal Info Letter
--- NOTE | 2024-08-28 14:48 | XR_ITS ---
Examination: CT brain head without contrast. 2-D sagittal coronal reconstructions Date and time of exam:August 28, 2024 1626 hours INDICATIONS: Loss of consciousness episode today CTDI: vol (mGy):45.7 DLP: (mGycm):935 Technique: Multiple CT axial sections of the brain have been obtained, 5 mm slice thickness. Contrast has not been administered. 2-D sagittal, coronal reconstructions have been obtained Low dose protocols were performed. One or more of the following dose reduction techniques were used; automated exposure control, adjustment of the mA and/or KV according to patient size, use of iterative reconstruction technique. Findings: No significant ventricular enlargement. Mildly hyperdense rounded area in the left brainstem pontine level, axial image 30, measuring 17 mm Intra-axial or extra-axial hemorrhage density is not seen. No mass effect or midline shift Basal cisterns are not remarkable. Fourth ventricle is midline. Cranial vault intact. Impression: Suspicious for left brainstem mass, pontine level, axial image 30, recommend brain MRI pre and post contrast follow-up
[2024-08-28 15:31] LABS: Lactate (Lactic Acid) 2.7 mMol/L (0.4-2.0)
[2024-08-28 15:44] LABS: Ammonia 63 uMol/L (11-32)
[2024-08-28 15:47] LABS: INR 1.6 (0.9-1.3); Partial Thromboplastin Time 31.9 Seconds (22.0-36.0); Prothrombin Time 16.5 Seconds (9.0-12.2)
[2024-08-28] MEDS: SODIUM CHLORIDE 0.9% 1000 ML 1,000 ML IV (16:00)
[2024-08-28] MEDS: PIPER/TAZO 3.375 GM 3.375 GM/50 ML BAG IV (16:01)
[2024-08-28 16:09] LABS: Collection Type, Urine Clean Catch; Squamous Epithelial Cell,Urine 0 /hpf (0-5)
[2024-08-28 16:15] LABS: B-Type Natriuretic Peptide 127 pg/mL (0-100)
[2024-08-28 16:21] LABS: Alanine Aminotransferase 40 U/L (10-49); Albumin, Serum 3.2 gm/dL (3.5-5.0); Albumin/Globulin Ratio 0.6 (1.2-2.2); Alcohol, Blood Medical < 10.0 mg/dL (0-10.0); Alkaline Phosphatase 145 U/L (46-116); Anion Gap 10 (7-16); Aspartate Amino Transferase 96 U/L (0-34); BUN/Creatinine Ratio 16 Ratio (12-20); Bilirubin,Total 4.7 mg/dL (0.3-1.2); Blood Urea Nitrogen 13 mg/dL (9-23); Calcium 8.9 mg/dL (8.3-10.6); Calcium (Corrected) 9.5 mg/dL (8.5-10.1); Carbon Dioxide 23.8 mMol/L (20.0-31.0); Chloride 100 mMol/L (98-107); Creatinine (Component) 0.8 mg/dL (0.6-1.3); Globulin 5.6 gm/dL (2.3-3.5); Glucose 92 mg/dL (74-106); Osmolality,Calculated 268 (275-295); Potassium 3.6 mMol/L (3.4-5.1); Procalcitonin 0.19 ng/ml (0.0-0.49); Sodium 134 mMol/L (136-145); Total Protein 8.8 gm/dL (5.7-8.2); Troponin I < 0.002 ng/mL (0.0-0.045); eGFR > 60 See Note
[2024-08-28 16:27] LABS: Bilirubin,Urine Negative (Negative); Blood,Urine Negative (Negative); Calcium Oxalate Crystals,Urine 2+; Clarity,Urine Turbid (Clear/Hazy); Color,Urine Yellow (Lt Yel-Yel); Culture Indicated,Urine Not Indicated; Glucose, Urine Negative (Negative); Hyaline Casts,Urine < 1 /hpf (0-1); Ketones,Urine Negative (Negative); Leukocyte Esterase,Urine Negative (Negative); Nitrite,Urine Negative (Negative); Protein,Urine Negative (Neg - Trace); RBC,Urine 4 /hpf (0-3); Specific Gravity,Urine 1.016 (1.001-1.035); Urobilinogen,Urine Negative mg/dL (0.0-1.0); WBC,Urine 5 /hpf (0-5)
[2024-08-28 16:28] LABS: Amphetamine/Methamp Scrn,U Negative (Negative); Barbiturate Screen,Urine Negative (Negative); Benzodiazepines Screen,Urine Negative (Negative); Benzoylecgonine Screen, Ur Negative (Negative); Fentanyl Screen,Urine Negative (Negative); Opiate Screen,Urine Negative (Negative); THC Screen,Urine Negative (Negative)
[2024-08-28 16:37] LABS: Basophils # (Auto) 0.1 Thou/mm3 (0.0-0.2); Basophils % (Auto) 1 % (0-2.5); Eosinophils # (Auto) 0.3 Thou/mm3 (0.0-0.5); Eosinophils % (Auto) 2 % (0-10); Hematocrit 29.9 % (41.0-53.0); Hemoglobin 10.4 g/dL (13.5-16.0); Immature Granulocytes % (Auto) 1 % (0-0); Immature Granulocytes Auto 0.08 Thou/mm3 (0.00-0.00); Lymphocytes # (Auto) 1.1 Thou/mm3 (1.0-4.8); Lymphocytes % (Auto) 9 % (10-50); Mean Corpuscular HGB Conc 34.8 g/dl (31.0-37.0); Mean Corpuscular Hemoglobin 32.5 pg (25.0-35.0); Mean Corpuscular Volume 93 fL (80-100); Monocytes # (Auto) 0.8 Thou/mm3 (0.0-0.8); Monocytes % (Auto) 7 % (0-12); Neutrophils # (Auto) 9.4 Thou/mm3 (1.8-7.7); Neutrophils % (Auto) 80 % (37-80); Nucleated Red Blood Cell % 0 /100 WBC (0); Platelet Count 194 Thou/mm3 (140-440); RDW Standard Deviation 49.9 fL (35.1-43.9); White Blood Count 11.7 Thou/mm3 (3.8-10.6)
--- NOTE | 2024-08-28 17:45 | PC.NURSE ---
DR YOUNGBLOOD AT BEDSIDE
[2024-08-28 18:27] LABS: Reflex Lactate? Y
[2024-08-28 18:41] LABS: Lactic Acid, 3 HR 1.6 mMol/L (0.4-2.0)
[2024-08-28] MEDS: PANTOPRAZOLE INJ 40 MG VIAL IVP (18:54)
[2024-08-28] MEDS: HYDROcodone/APAP 5/325 TABLET 1 TAB PO (18:54)
[2024-08-28] MEDS: cefTRIAXone 2 GM in SODIUM CHLORIDE 0.9% (P) 50 ML IV (18:55)
--- NOTE | 2024-08-28 19:12 | ESHP_ITS ---
<Statement entered by Dominic Altamirano MD - 08/28/24 19:43> This patient is a 29-year-old male with a past medical history of alcohol use disorder quit drinking 4 months ago complicated with decompensated liver cirrhosis with ascites, esophageal varices who recently moved from [place] to here on August 16, 2024. He was diagnosed with liver cirrhosis in August 2023. Cholecystostomy tube was placed 4 months ago in [place]. Patient had a episode of loss of consciousness today. Patient was complaining of leakage and abdominal discomfort from percutaneous cholecystostomy drainage tube placed approximately 2 months ago. He was also complaining of greenish discharge from the drainage tube. He denied any fever chills, shortness of breath, chest pain or any other discomfort. Patient is currently AOx3. EKG showed sinus tachycardia. In the ED patient was given normal saline bolus and maintenance fluids. He was found to have elevated white count and hemoglobin stable at 10. Kidney functions are stable. Liver enzymes were elevated with elevated T. bili of 4. Urinalysis showed trace RBCs with crystals. U tox was negative. CT abdomen was taken which showed esophageal varices, gastritis pattern, ascites, and cholecystostomy drain tube in satisfactory position. Chest x-ray showed right-sided pleural effusion. Given patient had loss of consciousness today head CT was taken which was concerning for possible brain mass at pontine level. Neurology was consulted on phone call and per recommendations we ordered MRI brain with contrast and no neurosurgical intervention was recommended for now. Patient is admitted for further workup and management of SBP. We started him on 2 g ceftriaxone IV, fluids were discontinued, will follow-up on the blood cultures. Albumin was given x 1. We ordered peritoneal fluid analysis with ultrasound-guided paracentesis for tomorrow. SCDs for DVT prophylaxis. We are giving lactulose 10 3 times daily given history of underlying liver cirrhosis and slightly elevated ammonia levels. Currently holding diuretic therapy given soft blood pressure and not in fluid overload state. All labs and orders were reviewed. I saw and examined the patient, and I agree with current management stated by Dr Marlene MD,PGY1. Plan of care was discussed with the attending physician and resident physician. Disclaimer: Despite multiple revisions, due to the dictation software being used, the document bellow may not be free of grammatical errors including phonetic/typographic errors. However, this does not deter from our commitment to providing health care in the patient's best interest in mind. Dr. Adarsh MD, PGY 2 Documentation for date of: 08/28/24 HPI History of Present Illness History of present illness: CC: Fluid draining near site of cholecystectomy Patient is a 29-year-old male with a past medical history end-stage liver disease and history of cholecystectomy drain catheter placed about 1 month ago and history of alcohol use disorder can drink about 1 L of vodka per day (quit about 3 to 4 months ago). Patient presented to the emergency room with a chief complaint of cholecystectomy tube draining with increasing shortness of breath. Patient stated he could not flush the cholecystectomy drain and yellow fluid has been draining into the bag as well as surrounding area of the skin. Patient stated his mom prompted him to come into the ER because of the increased fluid draining from the cholecystectomy tube. Patient stated he has also been having increased shortness of breath especially when getting up. Patient denied appearing more yellow and had not noticed this prior to admission. Patient denied any recent sick contacts. Patient denied chest pain. Patient stated there diffuse abdominal tenderness throughout for all 4 quadrants of his abdomen. No changes in stool consistency. Denied hematochezia or melena. Patient denied ever having hematemesis or hemoptysis. Never had an EGD or colonoscopy. Previous admission was about 3 to 4 months ago in [place] when he was first diagnosed with cirrhosis. 2 previous paracentesis. 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 Admitted for acute decompensated end state liver disease with ascites and sepsis, secondary to bacterial peritonitis. ER Course: Vitals: T 100.2, HR 120, RR 27, BP 119/78, SpO2 100 on RA Cxr: Large right pleural effusion Abdomen CT: Cirrhosis, liver irregular in contour. Cholecystostomy drainage tube satisfactory position with collapse of the gallbladder.Prominent splenomegaly. Esophageal varices. Perigastric varices. Mucosal fold thickening in the stomach CBC (08/28/2024): WBC 11.7, Hgb 10.4, Hct 29.9, PT 16.5, INR 1.6, PTT 31.9 CMP: Na 134, BUN 13, Cr 0.8, BNP 127, Troponin <0.002 Procaliton 0.19 Lactic acid 2.7-->1.6 total bili 4.7, AST 96, ALT 40, Ammonia 63, Albumin 3.2, UA negative Medication: Zosyn X1, NS 1 bolus, Protonix 40 mg IVP Qday, [place] #Sepsis, secondary to bacterial peritonitis PMH: Cirrhosis secondary to Alcohol Use Disorder Alcohol Use Disorder cholecystectomy drain catheter Past Surgical History: 2 paracentesis Past Family History: Diabetes Hypertension Lymphoma Home Medication: Spironolactone Possible Water Pills per patient tramadol Gabapentin Folic and thiamine Social History: Alcohol Use Disorder, abstinent for 3-4 months Denied Illicit drug use Denied Vaping Denied smoking Denied any type of needles Allergies: None Code Status: Full Code Review of Systems Review of Systems Narrative Review of Systems: General appearance: NO weight change, YES fatigue, NO weakness, NO fever, NO chills, NO night sweats, No cough Skin: NO rash, NO itching, NO sores, NO moles HEENT: NO Trauma, NO nausea, NO vomiting, NO visual changes, BLIND FROM RIGHT EYE, NO double vision, NO tinnitus, NO vertigo, NO ear discharge, NO rhinorrhea, NO stuffiness, NO sneezing, NO allergy, NO epistaxis. NO Hoarseness, NO sore throat, NO swollen neck. Cardiac: NO Palpitations, NO dyspnea on exertion, NO orthopnea, NO paroxysmal nocturnal dyspnea, NO edema Respiratory: YES Shortness of Breath, NO Wheezing, NO Cough, NO Sputum, NO hemoptysis GI:NO appetite, NO nausea, NO vomiting, NO dysphagia, NO changes in bowel frequency, NO stool color, NO diarrhea, NO constipation, NO hemetemesis, NO hemorrhoids, NO melena, NO hematechezia, NO abdominal pain, YES jaundice Renal: NO frequency, NO hesitancy, NO urgency, NO hematuria, NO nocturia, NO incontinence MSK: NO muscle weakness, NO gout, NO arthritis, NO muscle stiffness Neuro: NO headaches, NO tremors, NO weakness, NO paralysis, NO seizures, NO loss of consciousness, NO numbness. Hem: NO anemia, NO easy bruising/bleeding, NO petechiae, NO purpura Endo: NO heat/cold intolerance, NO excessive sweating, NO polyuria, NO polydipsia, NO polyphagia, NO thyroid problems, NO diabetes Pysch: NO mood, NO anxiety, NO depression Exam Vital Signs Temp Pulse Resp BP Pulse Ox O2 Del Method 98.0 F 107 H 21 H 115/74 98 Room Air 08/28/24 18:40 08/28/24 18:40 08/28/24 18:40 08/28/24 18:40 08/28/24 18:40 08/28/24 18:40 Narrative Exam General Appearance: Alert & Oriented X3, well-nourished, distended male who is lying in bed in no acute distress, jaundice HEENT: Skull symmetrical and atraumatic. Sclera icterus Pupils equal, round, reactive to light and accommodation (PERRL). External ear without lesion or discharge. Straight, nares patient, dry pink mucosa , no discharge. Cardio: Normal Rate and Rhythm with S1 and S2 heart sounds. No murmurs or extra heart sounds auscultated. No bruits on carotid auscultation. No peripheral edema or cyanosis. Lungs: Symmetric with good expansion. Chest and back non-tender. Breath sounds vesicular with mild crackles auscultated on right pulmonary field. Abdomen: Diffuse tender in all four quadrants, Yes Distended, Normal Reactive Bowel Sounds, not hyper-resonant Neuro: Alert, cooperative, oriented to person, place, and time. Speech clear. CN grossly intact. Upper motor strength 5/5 and Lower motor strength 5/5. Sensation intact. Results: Labs 08/29/24 04:49 08/29/24 04:49 Labs: Short CBC 08/28/24 Range/Units 15:10 WBC 11.7 H (3.8-10.6) Thou/mm3 Hgb 10.4 L (13.5-16.0) g/dL Hct 29.9 L (41.0-53.0) % Plt Count 194 D (140-440) Thou/mm3 BMP 08/28/24 15:10 Sodium 134 L Potassium 3.6 Chloride 100 Carbon Dioxide 23.8 BUN 13 Creatinine 0.8 Glucose 92 Calcium 8.9 Cardiac Enzymes 08/28/24 Range/Units 15:10 Troponin I < 0.002 (0.0-0.045) ng/mL Liver Function 08/28/24 Range/Units 15:10 Total Bilirubin 4.7 H (0.3-1.2) mg/dL AST 96 H (0-34) U/L ALT 40 (10-49) U/L Alkaline Phosphatase 145 H (46-116) U/L Albumin 3.2 L (3.5-5.0) gm/dL Urine 08/28/24 Range/Units 15:48 Urine Color Yellow (Lt Yel-Yel) Urine Clarity Turbid A (Clear/Hazy) Urine pH 5.0 (5.0-7.0) Ur Specific [place] 1.016 (1.001-1.035) Urine Protein Negative (Neg - Trace) Urine Glucose (UA) Negative (Negative) Quality Measures Quality Measures none Medications Home Medications and Allergies Allergies Allergy/AdvReac Type Severity Reaction Status Date / Time NKA* Allergy Uncoded 08/23/24 08:26 Visit Medications Acetaminophen (Acetaminophen 325 Mg Tablet) 650 mg PO Q6H PRN PRN Reason: Mild Pain 1-3 or Fever >100.4 Stop: 09/27/24 18:09 Hydrocodone Bitart/Acetaminophen (Hydrocodone/Apap 5/325 Tablet) 1 tab PO Q4HR PRN PRN Reason: PAIN SCALE 4-6 (Moderate Stop: 09/02/24 18:14 Last Admin: 08/28/24 18:54 Dose: 1 tab Ceftriaxone Sodium 2 gm/ (Sodium Chloride) 50 mls @ 100 mls/hr IV QDAY KURTIS Stop: 09/04/24 18:29 Last Admin: 08/28/24 18:55 Dose: 100 mls/hr Albumin Human (Albuminar-25 Ivpb) 25 gm in 100 mls @ 100 mls/hr IV X1 ONE Stop: 08/28/24 19:21 Lactulose (Lactulose Syrup 20 Gm/30 Ml Udc) 10 gm PO QID KURTIS; Protocol Stop: 09/27/24 20:59 Ondansetron HCl (Ondansetron Inj 2 Mg/Ml Inj 2 Ml) 4 mg IV Q6H PRN; Protocol PRN Reason: NAUSEA OR VOMITING Stop: 09/27/24 18:09 Pantoprazole Sodium (Pantoprazole Inj 40 Mg Vial) 40 mg IVP QDAY [facility] Stop: 09/27/24 18:14 Last Admin: 08/28/24 18:54 Dose: 40 mg Discontinued Medications Sodium Chloride (Ns) 1,000 mls @ 1,000 mls/hr IV .Q1H ONE Stop: 08/28/24 15:47 Last Infusion: 08/28/24 17:00 Dose: Infused Sodium Chloride (Ns) 2,000 mls @ 150 mls/hr IV .[id number] ONE Stop: 08/29/24 04:07 Last Admin: 08/28/24 18:44 Dose: Not Given Piperacillin/Tazobactam/Dextrose (Zosyn) 3.375 gm in 50 mls @ 100 mls/hr IV X1 ONE Stop: 08/28/24 15:17 Last Infusion: 08/28/24 17:00 Dose: Infused Lactulose (Lactulose Syrup 20 Gm/30 Ml Udc) 10 gm PO QID KURTIS; Protocol Stop: 09/27/24 20:59 Assessment & Plan Plan Patient is a 29-year-old male with a past medical history end-stage liver disease and history of cholecystectomy drain catheter placed about 1 month ago and history of alcohol use disorder who was admitted for sepsis, secondary to suspected bacterial peritonitis and decompensated end state liver disease w/ ascites. #Sepsis, likely secondary to bacterial peritonitis w/ end organ damage of ascites. #Bacterial Peritonitis #Decompensated end state liver disease, secondary to alcohol use disorder w ascites #Cirrhosis Patient presented with elevated WBCs, tachypneic and with tachycardia and with previous history of 2 paracentesis with decompensated and liver cyst disease thus bacterial peritonitis cannot be ruled out as a source of sepsis. Patient meeting 2/4 SIRS criteria with suspected infection. End organ damage of ascites with diffuse abdominal pain. decompensated end state liver disease as noted by decrease albumin, increase INR, increase ammonia, and jaundice. Cirrhosis from alcohol use likely as AST is double ALT number. Holding Spironolactone 100 mg- Furosemide 40 mg given soft blood pressure on admission, consider restarting as blood pressure permits. Diagnostics: Abdomen/Pelvis CT: Cirrhosis, liver irregular in contour. Cholecystostomy drainage tube satisfactory position with collapse of the gallbladder.Prominent splenomegaly. Esophageal varices. Perigastric varices. Mucosal fold thickening in the stomach WBC 11.7 Lactic Acid 2.7-->1.6 AST 96 ALT 40 INR 1.6 Ammonia 63 Utox negative QSOFA 2 points Child [place] Score 9 points; abdominal surgery prince-operative mortality 30% MELD Score 21 points, 7-10% estimated 90 day mortality Plan: -Albumin 25 g X 1 -Lactulose Syrup 10 gm PO QID -Paracentesis -Par Fluid cytology -Serum LDH -HIV and Hep panel -Blood Culture Pending -health services coordinator #Right Pleural Effusion Patient stated he is past medical history of right pleural effusion with previous thoracentesis. Patient complaining of shortness of breath likely secondary to right pleural effusion and abdominal distention pressing down on diaphragm. Possible loculation noted on CT chest abdomen. Likely transudative secondary to cirrhosis but parapneumonic cannot be ruled out. Diagnostics: Cxr (): Large right pleural effusion Plan -Consider Critical Care Consult -Oxygen PRN #Hyperbilirubinemia #s/p cholecystectomy drain catheter secondary to end state liver disease from alcohol use disorder. Plan -consider surgery consult for drain catheter #Splenomegaly Likely secondary to end state liver disease from portal hypertension as noted by varices on CT. Plan -No Acute Intervention #Incidential Suspcious Left Brainstem Mass, pontine levels Diagnostics:Suspicious for left brainstem mass, pontine level, axial image 30, recommend brain MRI pre and post contrast follow-up Plan -Brain MRI w contrast -Consult Neurology, appreciate recommendations #Alcohol Use Disorder No acute intervention as patient has been abstient for 3-4 months Plan no acute intervention Health Maintenance: Disp: Pt is currently admitted to floors for further management of sepsis secondary to possible peritonitis, awaiting paracetesis FEN: low sodium diet, fluid restriction 1800 DVT: compression device GI prophylaxis: None-increase risk of bacterial overgrowth Code: Full Code - The patient's plan was discussed with attending and senior residents Dr. Adarsh Rosario MD PGY1 Internal Medicine Attending Provider Attestation/Addendum I, Parisa Silva DO, attest that I was physically present for the lal portions of the service and evaluated the patient with the resident and I reviewed and discussed the case with the resident and agree with the resident's findings and plans of care as documented above Patient is a 29-year-old male with past medical history of cirrhosis and cholecystitis status post cholecystostomy drain placement about 4 months ago who presents to the ED with drainage from cholecystostomy drain site. Patient Was concerned that there may be pus coming from out of the site, but upon evaluation, it appears to be bilious fluid but appears to be bright yellow and clear. Patient had recently moved back to [place] with his family and had surgery and could not drop in [place]. Patient has a history of chronic alcohol use during which he drank 1 to 2 L of [employer] vodka daily. Patient quit drinking about 4 months ago when he was last admitted. Patient reports that he has been taking Augmentin, lactulose, spironolactone and Lasix at home. He states that he has been compliant with his medications. He denies any withdrawals from alcohol and was able to quit cold turkey. He denies any productive sputum, diarrhea, dysuria, chest pain otherwise. He reports some mild shortness of breath and generalized weakness since his last hospitalization. Patient states he lost about 60 pounds for the past 3 to 4 months. 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 Upon evaluation in the ED, patient was noted to have a temperature of 100.2, tachycardia 120 with a leukocytosis of 11.7 and a lactic acid of 2.7. He is noted to have an elevated bilirubin of 4.7 due to cirrhosis and ammonia of 63. A CT head was done in the ED showing a possible mass in the left brainstem. CT abdomen and pelvis was also done showing cholecystostomy drain in place with collapse of gallbladder, in addition to cirrhosis is esophageal varices. He is also noted to have a large right pleural effusion. Patient states that he has had paracentesis this done at that in the past he is also aware that he is not a good surgical candidate and thus the reason for the cholecystostomy tube. On exam, patient is very tender to palpation in his abdomen which is slightly distended likely due to ascites. There is some bright yellow fluid from the site of the catheter that he is complaining of drainage from. Patient has not been established with a primary care doctor here in town yet. Will admit patient for suspected SBP with possible source from cholecystostomy tube. Case was discussed with surgeon on-call who recommends for IR to remove the tube as cholecystostomy tubes usually stay for about 2 weeks as long as there is a good fistula tract formed and the gallbladder is collapsed. Reviewed CT findings and recommended follow- up with the radiologist regarding removal of cholecystostomy tube. Will place patient on Rocephin for treatment of SBP. Will order an ultrasound paracentesis and obtain peritoneal fluid studies to determine possible SBP. Will hold off on thoracentesis at this time as patient is on room air. There are suspicion for possible loculation. Will follow-up with radiology in a.m. as well- if there is a loculation, patient may benefit from chest tube and intrapleural fibrinolysis. Will give patient albumin at this time. Patient was informed of CT head findings, will follow-up with MRI with contrast to rule out any mass brainstem. Will continue to follow-up with blood cultures and peritoneal fluid culture.
[2024-08-28 19:13] LABS: Magnesium 1.9 mg/dL (1.6-2.6); Phosphorous 4.4 mg/dL (2.4-5.1)
[2024-08-28] MEDS: ALBUMIN HUMAN 25% IVPB 25 GM/100 ML BTL IV (19:30)
[2024-08-28] MEDS: Magnesium Sulfate 1 gm Ivpb 1 GM/100 ML BAG IV (20:31)
[2024-08-28] MEDS: MORPHINE SULF INJ 10 MG/ML VIAL IVP (21:09)
[2024-08-28] MEDS: LACTULOSE SYRUP 20 GM/30 ML UDC 10 GM PO (21:17)
[2024-08-29] VITALS (11 sets, daily range): BP systolic 96–113; BP diastolic 59–70; PULSE 87–101; RESP 15–99; TEMP 36.1–36.6; O2SAT 97–100; BMI 20.1
--- NOTE | 2024-08-29 | XR_ITS ---
Examination: AP chest single view Technique one AP upright portable chest single view Exam date and time: 03/29/2024 1346 hours INDICATIONS: Postthoracentesis FINDINGS: No pneumothorax post right thoracentesis Normal heart size The osseous structures are intact IMPRESSION: No pneumothorax post thoracentesis
--- NOTE | 2024-08-29 | XR_ITS ---
Examination: MRI brain with intravenous contrast TECHNIQUE: Multiple axial sagittal coronal brain MRI images post intravenous ministration 11 cc gadolinium Altered mental status this week, CT brain scan August 28, 2024 suspicious for hyperdense mass left brainstem pontine level Exam date and time: August 29, 2024 1007 hours FINDINGS: Ventricles are normal in size and configuration No mass effect upon the ventricular system No enhancing brainstem mass is confirmed on this examination No abnormal enhancing cerebellar or cerebral lesions IMPRESSION: No abnormal enhancing brainstem, cerebellar or cerebral mass lesion noted Right mastoiditis
[2024-08-29] MEDS: HYDROcodone/APAP 5/325 TABLET 1 TAB PO ×3 (00:23→16:31)
[2024-08-29] MEDS: LACTULOSE SYRUP 20 GM/30 ML UDC 10 GM PO (05:21)
[2024-08-29 05:42] LABS: Basophils # (Auto) 0.1 Thou/mm3 (0.0-0.2); Basophils % (Auto) 1 % (0-2.5); Eosinophils # (Auto) 0.4 Thou/mm3 (0.0-0.5); Eosinophils % (Auto) 5 % (0-10); Hematocrit 26.1 % (41.0-53.0); Immature Granulocytes % (Auto) 1 % (0-0); Immature Granulocytes Auto 0.06 Thou/mm3 (0.00-0.00); Lymphocytes # (Auto) 1.1 Thou/mm3 (1.0-4.8); Lymphocytes % (Auto) 11 % (10-50); Mean Corpuscular HGB Conc 33.3 g/dl (31.0-37.0); Mean Corpuscular Hemoglobin 32.1 pg (25.0-35.0); Mean Corpuscular Volume 96 fL (80-100); Monocytes # (Auto) 0.8 Thou/mm3 (0.0-0.8); Monocytes % (Auto) 8 % (0-12); Neutrophils % (Auto) 74 % (37-80); Nucleated Red Blood Cell % 0 /100 WBC (0); Platelet Count 198 Thou/mm3 (140-440); RDW Standard Deviation 51.4 fL (35.1-43.9); Red Blood Count 2.71 Miln/mm3 (4.50-5.90); White Blood Count 9.4 Thou/mm3 (3.8-10.6)
[2024-08-29 05:50] LABS: Hemoglobin 8.7 g/dL (13.5-16.0)
[2024-08-29 06:03] LABS: INR 1.6 (0.9-1.3); Partial Thromboplastin Time 33.6 Seconds (22.0-36.0)
[2024-08-29 06:37] LABS: Alanine Aminotransferase 29 U/L (10-49); Albumin, Serum 2.7 gm/dL (3.5-5.0); Albumin/Globulin Ratio 0.6 (1.2-2.2); Alkaline Phosphatase 121 U/L (46-116); Anion Gap 7 (7-16); Aspartate Amino Transferase 72 U/L (0-34); BUN/Creatinine Ratio 19 Ratio (12-20); Bilirubin,Total 3.8 mg/dL (0.3-1.2); Blood Urea Nitrogen 13 mg/dL (9-23); Calcium 9.5 mg/dL (8.3-10.6); Calcium (Corrected) 10.5 mg/dL (8.5-10.1); Carbon Dioxide 24.9 mMol/L (20.0-31.0); Chloride 104 mMol/L (98-107); Creatinine (Component) 0.7 mg/dL (0.6-1.3); Estimated Creatinine Clearance 118.7 mL/min (>60); Globulin 4.8 gm/dL (2.3-3.5); Glucose 77 mg/dL (74-106); Magnesium 2.2 mg/dL (1.6-2.6); Osmolality,Calculated 271 (275-295); Phosphorous 5.4 mg/dL (2.4-5.1); Potassium 4.3 mMol/L (3.4-5.1); Sodium 136 mMol/L (136-145); Thyroid Stimulating Hormone 6.31 uIU/mL (0.55-4.78); Total Protein 7.5 gm/dL (5.7-8.2); eGFR > 60 See Note
[2024-08-29 06:54] LABS: Hepatitis A Antibody IgM Non Reactive (Non React); Hepatitis B Core Antibody IgM Non Reactive (Non React); Hepatitis B Surface Antigen Non Reactive (Non React); Hepatitis C Antibody Non Reactive (Non React)
--- NOTE | 2024-08-29 07:41 | XR_ITS ---
Examination: CT chest with intravenous contrast 2-D sagittal and coronal reconstructions Exam date and time: August 29, 2024 1122 hours INDICATIONS: Diagnosis cirrhosis, large right pleural effusion on CT abdomen study August 28, 2024 CTDI:vol (mGy) 7.88 DLP: (mGycm) 288 Technique: Multiple axial sections of the thorax have been obtained. Sections have been obtained, 3 mm slice thickness. Mediastinal and lung density settings have been obtained. Intravenous contrast administered, 60 cc [id number]. 2-D sagittal, coronal images obtained. Low dose protocols were performed. One or more of the following dose reduction techniques were used; automated exposure control, adjustment of the mA and/or KV according to patient size, use of iterative reconstruction technique. Findings: No thoracic aortic aneurysm dilatation There is no diagnostic opacification of the pulmonary arteries No paratracheal tracheobronchial or bronchopulmonary adenopathy Large right pleural effusion with atelectasis right lower lobe Cirrhosis, liver irregular in contour, prominent splenomegaly Percutaneous cholecystostomy drainage tube satisfactory position Mild ascites IMPRESSION: No mediastinal lymphadenopathy Large right pleural effusion with atelectasis in the right lower lobe
--- NOTE | 2024-08-29 08:00 | XR_ITS ---
Examination: Abdomen sonogram, Limited Date and time of exam: August 29, 2024 1204 hours INDICATIONS: Cirrhosis, increasing ascites and abdominal distention this week Technique: Real-time pacheco scale transabdominal sonographic images of the upper abdomen obtained. Findings: Minimal ascitic fluid IMPRESSION: Minimal ascitic fluid
[2024-08-29] MEDS: cefTRIAXone 2 GM in SODIUM CHLORIDE 0.9% (P) 50 ML IV (08:24)
--- NOTE | 2024-08-29 09:03 | ESPR_ITS ---
Documentation for date of: 08/29/24 Subjective Subjective Interval history: Patient was examined bedside this morning, he was playing games on his iPad. No acute overnight event Exam Vital Signs Temp Pulse Resp BP Pulse Ox O2 Del Method 97.0 F 100 15 96/60 99 Room Air 08/29/24 08:00 08/29/24 08:00 08/29/24 08:00 08/29/24 08:00 08/29/24 08:00 08/29/24 08:00 Narrative Exam GENERAL: Comfortable adult seen resting comfortably in hospital bed, no acute distress,jaundiced VITALS: All vitals were reviewed and the pulse ox is 98% on room air HEENT: Normocephalic, atraumatic. Pupils are equal and reactive. Oral mucosa is moist. NECK: Supple, nontender, no JVD CHEST: Symmetrical, atraumatic and with equal expansion ,Nontender on palpation CARDIOVASCULAR: Heart regular rhythm & rate. S1/S2. no murmur or gallop rub or extra beats. LUNGS: Clear to auscultation bilaterally with symmetrical chest rise. No laboring tachypnea or wheezing. No intercostal subcostal retraction. No rales and no rhonchi. ABDOMEN: Soft, flat, nontender to palpation, no guarding or rebound tenderness. Active and normal bowel sounds.Drain in place EXTREMITIES:Moves all 4 extremities,No B/L LE edema. SKIN: Warm and dry, jaundice NEURO: Patient is AO x 3, Cranial nerves II through XII grossly intact. There is no focal neurologic deficits noted. PSYCHIATRIC: Patient is in normal mood, cooperative, no SI or HI or hallucinations. Objective Labs 08/29/24 04:49 08/29/24 04:49 Labs: Laboratory Results - last 24 hr 08/28/24 08/28/24 08/28/24 15:10 15:48 18:38 WBC 11.7 H RBC 3.20 L Hgb 10.4 L Hct 29.9 L MCV 93 MCH 32.5 MCHC 34.8 RDW Std Deviation 49.9 H Plt Count 194 D Neut % (Auto) 80 Lymph % (Auto) 9 L [facility] % (Auto) 7 Eos % (Auto) 2 Baso % (Auto) 1 Neut # (Auto) 9.4 H Lymph # (Auto) 1.1 [facility] # (Auto) 0.8 Eos # (Auto) 0.3 Baso # (Auto) 0.1 Immature Gran # (Auto) 0.08 H Absolute Nucleated RBC 0.00 Immature Gran % 1 H Nucleated RBC % 0 PT 16.5 H INR 1.6 H APTT 31.9 Sodium 134 L Potassium 3.6 Chloride 100 Carbon Dioxide 23.8 Anion Gap 10 BUN 13 Creatinine 0.8 Estim Creat Clear Calc 103.0 eGFR > 60 BUN/Creatinine Ratio 16 Glucose 92 Calculated Osmolality 268 L Lactic Acid 2.7 H 1.6 Calcium 8.9 Corrected Calcium 9.5 Phosphorus 4.4 Magnesium 1.9 Total Bilirubin 4.7 H AST 96 H ALT 40 Alkaline Phosphatase 145 H Ammonia 63 H Troponin I < 0.002 B-Natriuretic Peptide 127 H Total Protein 8.8 H Albumin 3.2 L Globulin 5.6 H Albumin/Globulin Ratio 0.6 L Procalcitonin 0.19 TSH Ur Collection Type Clean Catch Urine Color Yellow Urine Clarity Turbid A Urine pH 5.0 Ur Specific [place] 1.016 Urine Protein Negative Urine Glucose (UA) Negative Urine Ketones Negative Urine Blood Negative Urine Nitrite Negative Urine Bilirubin Negative Urine Urobilinogen (Auto) Negative Ur Leukocyte Esterase Negative Urine RBC 4 H Urine WBC 5 Ur Squamous Epith Cells 0 Calcium Oxalate Crystal 2+ A Urine Bacteria None Hyaline Casts < 1 Ur Culture Indicated? Not Indicated Urine Opiates Screen Negative Urine Fentanyl Screen Negative Ur Barbiturates Screen Negative U Amphetamin/Meth Scrn Negative U Benzodiazepines Scrn Negative U Cocaine Metab Screen Negative U Marijuana (THC) Screen Negative Ethyl Alcohol < 10.0 Hepatitis A IgM Ab Hep Bs Antigen Hep B Core IgM Ab Hepatitis C Antibody Blood Type O Positive Antibody Screen NEGATIVE Blood Bank Wristband ID Yes 08/29/24 04:49 WBC 9.4 RBC 2.71 L Hgb 8.7 L Hct 26.1 L MCV 96 MCH 32.1 MCHC 33.3 RDW Std Deviation 51.4 H Plt Count 198 Neut % (Auto) 74 Lymph % (Auto) 11 [facility] % (Auto) 8 Eos % (Auto) 5 Baso % (Auto) 1 Neut # (Auto) 7.0 Lymph # (Auto) 1.1 [facility] # (Auto) 0.8 Eos # (Auto) 0.4 Baso # (Auto) 0.1 Immature Gran # (Auto) 0.06 H Absolute Nucleated RBC 0.00 Immature Gran % 1 H Nucleated RBC % 0 PT 17.0 H INR 1.6 H APTT 33.6 Sodium 136 Potassium 4.3 D Chloride 104 Carbon Dioxide 24.9 Anion Gap 7 BUN 13 Creatinine 0.7 Estim Creat Clear Calc 118.7 eGFR > 60 BUN/Creatinine Ratio 19 Glucose 77 Calculated Osmolality 271 L Lactic Acid Calcium 9.5 Corrected Calcium 10.5 H Phosphorus 5.4 H Magnesium 2.2 Total Bilirubin 3.8 H D AST 72 H ALT 29 Alkaline Phosphatase 121 H D Ammonia Troponin I B-Natriuretic Peptide Total Protein 7.5 Albumin 2.7 L D Globulin 4.8 H Albumin/Globulin Ratio 0.6 L Procalcitonin TSH 6.31 H Ur Collection Type Urine Color Urine Clarity Urine pH Ur Specific [place] Urine Protein Urine Glucose (UA) Urine Ketones Urine Blood Urine Nitrite Urine Bilirubin Urine Urobilinogen (Auto) Ur Leukocyte Esterase Urine RBC Urine WBC Ur Squamous Epith Cells Calcium Oxalate Crystal Urine Bacteria Hyaline Casts Ur Culture Indicated? Urine Opiates Screen Urine Fentanyl Screen Ur Barbiturates Screen U Amphetamin/Meth Scrn U Benzodiazepines Scrn U Cocaine Metab Screen U Marijuana (THC) Screen Ethyl Alcohol Hepatitis A IgM Ab Non Reactive Hep Bs Antigen Non Reactive Hep B Core IgM Ab Non Reactive Hepatitis C Antibody Non Reactive Blood Type Antibody Screen Blood Bank Wristband ID Quality Measures Quality Measures none Assessment & Plan Assessment Current Active Medications: Generic Name Dose Route Start Last Admin Trade Name Freq PRN Reason Stop Dose Admin Acetaminophen 650 mg 08/28/24 18:10 Acetaminophen 325 Mg Tablet PO 09/27/24 18:09 Q6H PRN Mild Pain 1-3 or Fever >100.4 Hydrocodone Bitart/Acetaminophen 1 tab 08/28/24 18:15 08/29/24 07:09 Hydrocodone/Apap 5/325 Tablet PO 09/02/24 18:14 1 tab Q4HR PRN Administration PAIN SCALE 4-6 (Moderate Ceftriaxone Sodium 2 gm/ 50 mls @ 100 mls/hr 08/28/24 18:30 08/29/24 08:24 Sodium Chloride IV 09/04/24 18:29 100 mls/hr QDAY KURTIS Administration Lactulose 10 gm 08/28/24 21:00 08/29/24 05:21 Lactulose Syrup 20 Gm/30 Ml Udc PO 09/27/24 20:59 10 gm QID KURTIS Administration Protocol Morphine Sulfate 1 mg 08/28/24 20:28 08/28/24 21:09 Morphine Sulf Inj 10 Mg/Ml Vial IVP 09/02/24 20:27 1 mg Q4HR PRN Administration Pain 7-10 Ondansetron HCl 4 mg 08/28/24 18:10 Ondansetron Inj 2 Mg/Ml Inj 2 Ml IV 09/27/24 18:09 Q6H PRN NAUSEA OR VOMITING Protocol Plan 29-year-old male with a H end-stage liver disease and history of cholecystectomy drain catheter placed about 1 month ago and history of alcohol use disorder who was admitted for sepsis, secondary to suspected bacterial peritonitis and decompensated end state liver disease w/ ascites. Neurology was consulted for Suspicious for left brainstem mass, pontine level #Left brain Mass -Head Ct showed - Suspicious for left brainstem mass, pontine level -Follow up with MRI -Abd /pelvis CT Large right pleural effusion,Atelectasis versus pneumonia right base, Cirrhosis,Prominent splenomegaly,Esophageal varices,History varices, gastritis pattern, Cholecystostomy drainage catheter satisfactory position with collapse of the gallbladder -Chest xr- Large right pleural effusion -Continue IV antibiotics -Hepatitis pannel negative -Rest of medical problem management as per primary team Case Discussed with my attending Dr Alfred Vaz MD,PGY-3 Attending Provider Attestation/Addendum I personally have seen and examined the patient at the bedside and agree with resident findings, assessment and plan of care. Continue with the current management. MRI brain showed negative for cerebral and cerebellar/brainstem mass lesions
--- NOTE | 2024-08-29 10:08 | PC.SS ---
Patient Vaughn Reyes is a 29 Year old male admitted for Cirrohosis. SS met with patient at bedside to discuss discharge planning and review demographic information. Patient reports he lives at home with his mother, Rashmi Valencia who he reports is his surrogate decision maker [phone]. Patient is able to ambulate independently and does not utilize any source of DME to assist with ambulation. PCP is Michael Munroe. Choice of Pharmacy is [facility]. At time of discharge patient will return Home. Next of Kin: Mother, Rashmi Valencia [phone] Discharge Plan: Home
--- NOTE | 2024-08-29 10:43 | PC.NURSE ---
PATIENT WANTS TO LEAVE AGAIST MEDICAL ADVICE, CALLED DR. PELAYO AND MADE AWARE.
--- NOTE | 2024-08-29 10:49 | PC.NURSE ---
DR GIULIANA ALCALA IS HERE TO TALK TO THE PATIENT EXPALINING ALL CONSEQUESCES FOR LEAVING AGAINST MEDICAL ADVICE , VERBALIZES UNDERSTANDING ,PATIENT DECIDED TO STAY .
--- NOTE | 2024-08-29 11:23 | PD.RESPRO ---
Documentation for date of: 08/29/24 Exam Vital Signs Temp Pulse Resp BP Pulse Ox O2 Del Method 97.0 F 100 15 96/60 99 Room Air 08/29/24 08:00 08/29/24 08:00 08/29/24 08:00 08/29/24 08:00 08/29/24 08:00 08/29/24 08:00 Objective Labs 08/29/24 04:49 08/29/24 04:49 Labs: Laboratory Results - last 24 hr 08/28/24 08/28/24 08/28/24 15:10 15:48 18:38 WBC 11.7 H RBC 3.20 L Hgb 10.4 L Hct 29.9 L MCV 93 MCH 32.5 MCHC 34.8 RDW Std Deviation 49.9 H Plt Count 194 D Neut % (Auto) 80 Lymph % (Auto) 9 L [place] % (Auto) 7 Eos % (Auto) 2 Baso % (Auto) 1 Neut # (Auto) 9.4 H Lymph # (Auto) 1.1 [place] # (Auto) 0.8 Eos # (Auto) 0.3 Baso # (Auto) 0.1 Immature Gran # (Auto) 0.08 H Absolute Nucleated RBC 0.00 Immature Gran % 1 H Nucleated RBC % 0 PT 16.5 H INR 1.6 H APTT 31.9 Sodium 134 L Potassium 3.6 Chloride 100 Carbon Dioxide 23.8 Anion Gap 10 BUN 13 Creatinine 0.8 Estim Creat Clear Calc 103.0 eGFR > 60 BUN/Creatinine Ratio 16 Glucose 92 Calculated Osmolality 268 L Lactic Acid 2.7 H 1.6 Calcium 8.9 Corrected Calcium 9.5 Phosphorus 4.4 Magnesium 1.9 Total Bilirubin 4.7 H AST 96 H ALT 40 Alkaline Phosphatase 145 H Ammonia 63 H Troponin I < 0.002 B-Natriuretic Peptide 127 H Total Protein 8.8 H Albumin 3.2 L Globulin 5.6 H Albumin/Globulin Ratio 0.6 L Procalcitonin 0.19 TSH Ur Collection Type Clean Catch Urine Color Yellow Urine Clarity Turbid A Urine pH 5.0 Ur Specific [place] 1.016 Urine Protein Negative Urine Glucose (UA) Negative Urine Ketones Negative Urine Blood Negative Urine Nitrite Negative Urine Bilirubin Negative Urine Urobilinogen (Auto) Negative Ur Leukocyte Esterase Negative Urine RBC 4 H Urine WBC 5 Ur Squamous Epith Cells 0 Calcium Oxalate Crystal 2+ A Urine Bacteria None Hyaline Casts < 1 Ur Culture Indicated? Not Indicated Urine Opiates Screen Negative Urine Fentanyl Screen Negative Ur Barbiturates Screen Negative U Amphetamin/Meth Scrn Negative U Benzodiazepines Scrn Negative U Cocaine Metab Screen Negative U Marijuana (THC) Screen Negative Ethyl Alcohol < 10.0 Hepatitis A IgM Ab Hep Bs Antigen Hep B Core IgM Ab Hepatitis C Antibody Blood Type O Positive Antibody Screen NEGATIVE Blood Bank Wristband ID Yes 08/29/24 04:49 WBC 9.4 RBC 2.71 L Hgb 8.7 L Hct 26.1 L MCV 96 MCH 32.1 MCHC 33.3 RDW Std Deviation 51.4 H Plt Count 198 Neut % (Auto) 74 Lymph % (Auto) 11 [place] % (Auto) 8 Eos % (Auto) 5 Baso % (Auto) 1 Neut # (Auto) 7.0 Lymph # (Auto) 1.1 [place] # (Auto) 0.8 Eos # (Auto) 0.4 Baso # (Auto) 0.1 Immature Gran # (Auto) 0.06 H Absolute Nucleated RBC 0.00 Immature Gran % 1 H Nucleated RBC % 0 PT 17.0 H INR 1.6 H APTT 33.6 Sodium 136 Potassium 4.3 D Chloride 104 Carbon Dioxide 24.9 Anion Gap 7 BUN 13 Creatinine 0.7 Estim Creat Clear Calc 118.7 eGFR > 60 BUN/Creatinine Ratio 19 Glucose 77 Calculated Osmolality 271 L Lactic Acid Calcium 9.5 Corrected Calcium 10.5 H Phosphorus 5.4 H Magnesium 2.2 Total Bilirubin 3.8 H D AST 72 H ALT 29 Alkaline Phosphatase 121 H D Ammonia Troponin I B-Natriuretic Peptide Total Protein 7.5 Albumin 2.7 L D Globulin 4.8 H Albumin/Globulin Ratio 0.6 L Procalcitonin TSH 6.31 H Ur Collection Type Urine Color Urine Clarity Urine pH Ur Specific [place] Urine Protein Urine Glucose (UA) Urine Ketones Urine Blood Urine Nitrite Urine Bilirubin Urine Urobilinogen (Auto) Ur Leukocyte Esterase Urine RBC Urine WBC Ur Squamous Epith Cells Calcium Oxalate Crystal Urine Bacteria Hyaline Casts Ur Culture Indicated? Urine Opiates Screen Urine Fentanyl Screen Ur Barbiturates Screen U Amphetamin/Meth Scrn U Benzodiazepines Scrn U Cocaine Metab Screen U Marijuana (THC) Screen Ethyl Alcohol Hepatitis A IgM Ab Non Reactive Hep Bs Antigen Non Reactive Hep B Core IgM Ab Non Reactive Hepatitis C Antibody Non Reactive Blood Type Antibody Screen Blood Bank Wristband ID Quality Measures Quality Measures none Assessment & Plan Assessment Current Active Medications: Generic Name Dose Route Start Last Admin Trade Name Freq PRN Reason Stop Dose Admin Acetaminophen 650 mg 08/28/24 18:10 Acetaminophen 325 Mg Tablet PO 09/27/24 18:09 Q6H PRN Mild Pain 1-3 or Fever >100.4 Hydrocodone Bitart/Acetaminophen 1 tab 08/28/24 18:15 08/29/24 07:09 Hydrocodone/Apap 5/325 Tablet PO 09/02/24 18:14 1 tab Q4HR PRN Administration PAIN SCALE 4-6 (Moderate Ceftriaxone Sodium 2 gm/ 50 mls @ 100 mls/hr 08/28/24 18:30 08/29/24 08:24 Sodium Chloride IV 09/04/24 18:29 100 mls/hr QDAY KURTIS Administration Lactulose 10 gm 08/28/24 21:00 08/29/24 05:21 Lactulose Syrup 20 Gm/30 Ml Udc PO 09/27/24 20:59 10 gm QID KURTIS Administration Protocol Morphine Sulfate 1 mg 08/28/24 20:28 08/28/24 21:09 Morphine Sulf Inj 10 Mg/Ml Vial IVP 09/02/24 20:27 1 mg Q4HR PRN Administration Pain 7-10 Ondansetron HCl 4 mg 08/28/24 18:10 Ondansetron Inj 2 Mg/Ml Inj 2 Ml IV 09/27/24 18:09 Q6H PRN NAUSEA OR VOMITING Protocol
--- NOTE | 2024-08-29 13:28 | XR_ITS ---
Examination: IR fluoroscopically guided removal percutaneous cholecystostomy tube AP abdomen 3 views Fluoroscopy Exam date and time: August 29, 2024 1426 hours INDICATIONS: No longer needed for percutaneous cholecystostomy drainage tube TECHNIQUE AND FINDINGS: Informed consent provided. Timeout performed. Skin prepped over the entrance site of the cholecystostomy drainage tube and sterile drape applied hand hygiene 1% lidocaine administered for local anesthesia Utilizing fluoroscopic guidance 0.35 wire guide is introduced through the drainage catheter to straighten the pigtail end Successful removal of the drainage catheter Estimated blood loss 1 cc Patient instable condition at completion procedure IMPRESSION: Successful fluoroscopically guided removal percutaneous cholecystostomy drainage catheter Fluoroscopy 0.1 minute radiation dose 0.94 milligray 3 spot fluoroscopic abdomen films Final spot fluoroscopic abdomen films no longer demonstrates the drainage catheter
--- NOTE | 2024-08-29 13:28 | XR_ITS ---
Examination: Ultrasound-guided right thoracentesis Ultrasound right hemithorax Ultrasound left hemithorax Exam date and time: August 29, 2024 1514 hours INDICATIONS: Shortness of breath today, CT chest August 29, 2024 large right pleural effusion with atelectasis right lower lobe TECHNIQUE AND FINDINGS: Grayscale sonographic images right and left hemithoraces Large right pleural effusion No significant left pleural effusion Informed consent provided. Timeout performed. Skin prepped The right hemithorax and sterile drape applied hand hygiene ultrasound sterile technique 1% lidocaine administered for local anesthesia Utilizing ultrasonographic guidance 5 Cymro catheter placed in the right pleural space 1800 cc pleural fluid removed Estimated blood loss 0 cc IMPRESSION: Successful ultrasound-guided right thoracentesis, 1800 cc pleural fluid removed
[2024-08-29] MEDS: fentaNYL CIT INJ 50 mCg/ML AMP 2ML 75 MCG IVP (14:59)
[2024-08-29 15:51] LABS: Cardiac Risk Estimate 6.7 RATIO (4.0-6.7); Cholesterol 201 mg/dL (132-200); Free T4 (Free Thyroxine) 1.22 ng/dL (0.89-1.76); HDL Cholesterol 30 mg/dL (40-60); LDH (Lactate Dehydrogenase) 173 U/L (120-246); LDL Cholesterol,Calculated 153 mg/dL (0-130); Triglycerides 90 mg/dL (30-150)
--- NOTE | 2024-08-29 15:56 | PC.NURSE ---
1520 Patient post cholecystectomy tube removal, dressing to right upper abdomen dry with no bleeding, report given to Katey RN, patient transferred to Ultrasound department for thoracenthesis procedure ordered. cholecystectomy tube drainage bag placed in biohazard bag, labeled and given to Katey MERCEDES to send for testing.
[2024-08-29 17:10] LABS: Peritoneal Fluid WBC 264 /cmm
--- NOTE | 2024-08-29 17:10 | PD.RESEVENT ---
Documentation for date of: 08/29/24 Event Note Event Note: The patient has decided to leave against medical advice. They have a normal mental status and adequate capacity to make medical decisions. The patient refuses hospital admission and wants to be discharged. Myself, co-resident Dr. Altamirano, and attending Dr. Silva at bedside. Explained to patient risk of leaving and benefits of staying. The benefits of admission have also been explained, including the availability and proximity of nurses, physicians, monitoring, diagnostic testing, and treatment. The patient was able to understand and state the risks and benefits of hospital admission. They had the opportunity to ask questions about their medical condition. The patient was treated to the extent that they would allow and knows that they may return for care at any time. I have reviewed and discussed the patient's care with my attending, Dr. Ricardo Rosario MD PGY-3
--- NOTE | 2024-08-29 17:13 | ESDS_ITS ---
<Statement entered by Parisa Silva DO - 08/30/24 08:33> I, Parisa Silva DO, attest that I was physically present for the lal portions of the service and evaluated the patient with the resident and I reviewed and discussed the case with the resident and agree with the resident's findings and plans of care as documented above Patient left against medical advice following thorascentesis and removal of cholecystostomy tube. Patient reported feeling much improved and did not feel the need to be admitted any longer. Explained to patient that fluid studies and cultures were pending due to concern for SBP. Patient states that he takes augmentin at home and has been afebrile for the past 24hrs. He does not feel that we are doing anything different from his oral medications at home. Explained to patient that he cannot be on augmentin correction and that he can develop resistant infections. Patient verbalized understanding, but stated he did not want to stay. He is aware that he can develop worsening infection and possibly if untreated. He stated he will return to ED if his situation worsens, but was adamant about leaving this evening despite our recommendations and understanding the risks. <Statement entered by Dominic Altamirano MD - 08/29/24 17:16> Patient was seen and examined at the bedside. Initially patient was not conversational and wanted to go home however he was explained that we are trying to do further testing to treat his SBP. Patient mother was present at the bedside and she wanted to proceed with the treatment. MRI brain did not show any mass.We ordered fluoroscopy assisted removal of cholecystostomy drain tube by IR and will likely follow-up on the culture and Gram stain from cholecystostomy drain tube tomorrow. Ordered thoracentesis for right-sided pleural effusion. Currently holding diuretics given patient blood pressure is soft. Hemoglobin remained stable. Kidney functions are also stable. Continui ng IV 2 g ceftriaxone for SBP treatment. Patient appears to be not in abdominal discomfort today and was eating and drinking well. Neurorecommendations pending. Electrolytes were managed. Left AMA: In the evening, patient underwent thoracentesis for right-sided pleural effusion and 1 L fluid was removed. Patient cholecystostomy drain tube was removed by IR. Patient wanted to leave AMA although he was explained regarding the risks and complications of leaving including sepsis and . Patient was explained that we are waiting on culture results to cover with appropriate antibiotics. Patient understood and his capacity as he was AOx3 and said that he is feeling better and he wants to leave. Patient signed the AMA paper in the presence of RN, attending supervisor instrument maintenance and resident physician. I saw and examined the patient, and I agree with current management stated by Dr Marlene MD,PGY1. Plan of care was discussed with the attending physician and resident physician. Disclaimer: Despite multiple revisions, due to the dictation software being used, the document bellow may not be free of grammatical errors including phonetic/typographic errors. However, this does not deter from our commitment to providing health care in the patient's best interest in mind. Dr. Adarsh MD, PGY 2 Planned Discharge Date 08/29/24 DS: Providers Provider Date of admission: 08/28/24 18:42 Primary care physician: Michael Munroe MD Admitting Provider: Parisa Silva DO Attending Provider on Admission: Parisa Silva DO Consults: 08/28/24 18:41 Consult to Neurology / Tele-Neurology Routine Comment: Consulting Provider: Abhijeet Simon Attending Provider on DC: Dominic Altamirano MD Discharging Provider: Dominic Altamirano MD DS: Diagnosis Problem List Completed Was Problem List Reviewed/Reconciled?: Yes Hospital Course Hospital Course Hospital course: Summary: Patient is a 29-year-old male with a past medical history end-stage liver disease and history of cholecystectomy drain catheter placed about 1 month ago and history of alcohol use disorder can drink about 1 L of vodka per day (quit about 3 to 4 months ago) who was being worked up for sepsis, likely secondary to spontaneous bacterial peritonitis and decomponsated Cirrhosis secondary to alcohol use disorder. Hospital Course: Patient left AMA this afternoon despite considerable effort to advice patient to remain inpatient. Patient recieved ultrasound guided thoracentesis with the removal of 1800 cc of pleural fluid. NO ascitic fluid removed, insufficient. Successful Fluoroscopically guided cholecystostomy drainage catheter from previous hospitalization out of stated where it was initially placed several months. At the time of hospitalization, patient was receiving antibiotics but refused further care. Incidental brain mass noted on CT. Hep panel Negative. Instructions: Patient refused further care and left AMA Disposition: Home #Sepsis, likely secondary to bacterial peritonitis w/ end organ damage of ascites, improving #Bacterial Peritonitis #Decompensated cirrhosis, secondary to alcohol use disorder w ascites #Cirrhosis #Right Pleural Effusion s/p thoracentesis (08/29/2024) #Hyperbilirubinemia #s/p cholecystectomy drain catheter-->removed on 08/29/2024 #Splenomegaly, likley secondary to Cirrhosis #Incidential Suspcious Left Brainstem Mass, pontine levels #Alcohol Use Disorder - The patient's plan was discussed with attending Dr. Silva and senior residents Dr. Adarsh Rosario MD PGY1 Internal Medicine Time Spent with Patient Time attestation: Total time spent providing and/or coordinating discharge services: greater than 35 minutes Exam Vital Signs Temp Pulse Resp BP Pulse Ox O2 Del Method 97.6 F 100 15 105/68 100 Room Air 08/29/24 16:00 08/29/24 16:00 08/29/24 16:00 08/29/24 16:00 08/29/24 16:00 08/29/24 16:00 Narrative Exam General Appearance: Alert & Oriented X3, well-nourished male who is lying in bed in no acute distress. Jaundice appearing. HEENT: Skull symmetrical and atraumatic. Conjunctivae pin and moist. Pupils equal, round, reactive to light and accommodation (PERRL). External ear without lesion or discharge. Straight, nares patient, mucosa pink, no discharge. Cardio: Normal Rate and Rhythm with S1 and S2 heart sounds. No murmurs or extra heart sounds auscultated. No bruits on carotid auscultation. No peripheral edema or cyanosis. Lungs: Symmetric with good expansion. Chest and back non-tender. Breath sounds vesicular without crackles, wheezing or rhonchi Abdomen: diffuse tenderness in all four quadrants, distended-improved, Normal Reactive Bowel Sounds Neuro: Alert, cooperative, oriented to person, place, and time. Speech clear. CN grossly intact. Upper motor strength 5/5 and Lower motor strength 5/5. Sensation intact. Discharge Plan Plan Patient Disposition: Left Against Medical Advice Prescriptions/Referrals Referrals: Michael Munroe MD [Primary Care Provider] - Patient/Caregiver Discharge Instructions Education Materials: Thoracentesis Dc Print Language: Estonian Quality Discharge Quality Measures VTE prophylaxis
[2024-08-29 17:15] LABS: Pleural Fluid WBC 1390 /cmm
[2024-08-29 17:21] LABS: Amylase,Pleural Fluid 55 IU/L; Glucose,Pleural Fluid 102 mg/dL; LDH,Pleural Fluid 192 IU/L; Protein Total,Pleural Fluid 5.5 g/dL
--- NOTE | 2024-08-29 17:28 | PC.NURSE ---
1720 patient wants to go against medical discharge, called and dr.lim martell , drOmar went and talked to patient gave all possible bad consequenses for leaving agaist medical advice including infection or even , patient insisted, patient walked out by himself.
[2024-08-29 18:03] LABS: Peritoneal Fluid Appearance Hazy; Peritoneal Fluid Color Yellow; Peritoneal Fluid Mononuclear 79 %; Peritoneal Fluid Polynuclear 21 %; RBC,Peritoneal Fluid 52 /cmm
[2024-08-29 18:04] LABS: Pleural Fluid Appearance Hazy; Pleural Fluid Color Yellow; Pleural Fluid Mononuclear 95 %; Pleural Fluid Polynuclear 5 %; Pleural Fluid RBC 17000 /cmm
[2024-08-29 18:31] LABS: Albumin, Peritoneal Fluid < 1.0 gm/dL; Amylase,Peritoneal Fluid < 20 IU/L; Glucose,Peritoneal Fluid < 4 mg/dL; LDH,Peritoneal Fluid 179 IU/L; Protein Total,Peritoneal Fluid < 2 g/dL
== END 2024-08-29 17:25 | disposition left against medical advice (07) | DRG 720 ==
LOC: SERX 17:50 → SERHOLD 18:45 → S2NX 21:57
PROVIDERS: Nurse Practitioner Primary Care; Student in an Organized Health Care Education/Training Program; Admitting Provider Internal Medicine; Emergency Provider Emergency Medicine; PCP Family Medicine; Visit Provider Internal Medicine
DX: A41.9 Sepsis, unspecified organism (principal); K72.10 Chronic hepatic failure without coma; K70.31 Alcoholic cirrhosis of liver with ascites; K65.9 Peritonitis, unspecified; J90 Pleural effusion, not elsewhere classified; R16.1 Splenomegaly, not elsewhere classified; G93.9 Disorder of brain, unspecified; Z53.29 Procedure and treatment not carried out because of patient's decision for other reasons; F10.10 Alcohol abuse, uncomplicated
CPT/HCPCS: 36415; 70450; 70552; 71046; 71260; 74177; 76705; 77001; 80053; 80061; 80074; 80307; 80320; 81001; 82042; 82140; 82150; 82945; 83605; 83615; 83735; 83880; 84100; 84145; 84157; 84439; 84443; 84484; 85025; 85610; 85730; 86703; 86850; 86900; 86901; 87040; 87070; 87075; 87077; 87081; 87186; 87205; 89051; 96365; 96367; 96375; 99285; A4649; A9579; C1729; J0696; J2270; J2470; J2543; J3010; J3475; J7030; J7050; P9047; Q9967; A9270; G0480

== ENCOUNTER 2024-09-04 20:05 | Inpatient (IN) | payer MEDICAID, SELFPAY ==
[2024-09-04 20:38] VITALS: BP 111/78; PULSE 112; RESP 16; TEMP 37.5; O2SAT 98
--- NOTE | 2024-09-04 20:44 | PD.EDRME ---
Rapid Medical Screening Exam [facility] Arrival date/time: 09/04/24 20:05 29M with history of alcoholic cirrhosis presents to ED with continued ab pain and fevers/chills. Patient recently signed out AMA from upstairs for this pending pleural/peritoneal aspiration culture results, which showed Pseudomonas and Enterococcus (see diagnostics). Patient has been taking Augmentin at home w/o relief. Chief Complaint: Abdominal Pain Vital signs: Vital Signs Temperature 99.5 F 09/04/24 20:38 Pulse Rate 112 H 09/04/24 20:38 Respiratory Rate 16 09/04/24 20:38 Blood Pressure 111/78 09/04/24 20:38 Pulse Oximetry (%) 98 09/04/24 20:38 Oxygen Delivery Method Room Air 09/04/24 20:38
--- NOTE | 2024-09-04 21:10 | PC.NURSE ---
Pt present for complaints of abd pain x3 days. Pt had a paracentesis in [place] but the drain was removed here. Pt has history of cirrhosis. Site of abdomen is covered with a 2x2 and tegaderm. Pt denies N/V/D. Pt c/o pain 810 to ruq abd at the drainage site. Pt says he is currently taking antibiotics but was told they were the wrong antibiotics. Pt tachycardic at 117. Pt denies sob. Pt pending MD assessment.
[2024-09-04 21:14] VITALS: BP 103/70; PULSE 111; RESP 20; TEMP 37.2; O2SAT 100
[2024-09-04 21:33] LABS: Lactate (Lactic Acid) 1.5 mMol/L (0.4-2.0)
[2024-09-04] MEDS: HYDROcodone/APAP 5/325 TABLET 1 TAB PO (21:54)
[2024-09-04 21:58] LABS: Alanine Aminotransferase 28 U/L (10-49); Albumin, Serum 2.9 gm/dL (3.5-5.0); Albumin/Globulin Ratio 0.6 (1.2-2.2); Alkaline Phosphatase 141 U/L (46-116); Anion Gap 9 (7-16); Aspartate Amino Transferase 66 U/L (0-34); BUN/Creatinine Ratio 20 Ratio (12-20); Basophils # (Auto) 0.1 Thou/mm3 (0.0-0.2); Basophils % (Auto) 1 % (0-2.5); Bilirubin,Total 3.7 mg/dL (0.3-1.2); Blood Urea Nitrogen 12 mg/dL (9-23); Calcium 9.4 mg/dL (8.3-10.6); Calcium (Corrected) 10.3 mg/dL (8.5-10.1); Carbon Dioxide 22.8 mMol/L (20.0-31.0); Chloride 104 mMol/L (98-107); Creatinine (Component) 0.6 mg/dL (0.6-1.3); Eosinophils # (Auto) 0.4 Thou/mm3 (0.0-0.5); Eosinophils % (Auto) 3 % (0-10); Estimated Creatinine Clearance 137.3 mL/min (>60); Globulin 4.9 gm/dL (2.3-3.5); Glucose 93 mg/dL (74-106); Hematocrit 30.5 % (41.0-53.0); Hemoglobin 10.3 g/dL (13.5-16.0); Immature Granulocytes % (Auto) 1 % (0-0); Immature Granulocytes Auto 0.06 Thou/mm3 (0.00-0.00); Lipase 74 U/L (12-53); Lymphocytes # (Auto) 1.2 Thou/mm3 (1.0-4.8); Lymphocytes % (Auto) 11 % (10-50); Mean Corpuscular HGB Conc 33.8 g/dl (31.0-37.0); Mean Corpuscular Hemoglobin 31.9 pg (25.0-35.0); Mean Corpuscular Volume 94 fL (80-100); Monocytes # (Auto) 0.9 Thou/mm3 (0.0-0.8); Monocytes % (Auto) 8 % (0-12); Neutrophils # (Auto) 8.4 Thou/mm3 (1.8-7.7); Neutrophils % (Auto) 77 % (37-80); Nucleated Red Blood Cell % 0 /100 WBC (0); Osmolality,Calculated 271 (275-295); Platelet Count 221 Thou/mm3 (140-440); RDW Standard Deviation 49.1 fL (35.1-43.9); Red Blood Count 3.23 Miln/mm3 (4.50-5.90); Sodium 136 mMol/L (136-145); Total Protein 7.8 gm/dL (5.7-8.2); eGFR > 60 See Note
[2024-09-04 22:02] LABS: Procalcitonin 0.18 ng/ml (0.0-0.49)
--- NOTE | 2024-09-04 22:17 | XR_ITS ---
Examination: AP chest single view Technique: AP portable upright chest single view Exam date and time: September 04, 2024 1022 hrs. Comparison August 28, 2024 Indications: Shortness of breath today Findings: Significant right lung pneumonia Moderate right pleural effusion No significant cardiac enlargement Mild vascular congestion Impression: Significant right lung pneumonia Moderate right pleural effusion
--- NOTE | 2024-09-04 22:36 | PD.EDADULT ---
ED General RME/HPI General Chief complaint: Abdominal Pain Stated complaint: ABD PAIN HX CIRRHOSIS Time Seen by Provider: 09/04/24 21:32 Arrival date/time: 09/04/24 20:05 CC: Abdominal pain HPI patient presents the ER with a history of cirrhosis left AMA from this facility on 8 after waiting for blood cultures pending for rule out SBP from peritoneal fluid patient also had had a right-sided pleural effusion that was tapped of 1 L of fluid. Patient clearly was explained the risks of leaving. Today the patient returns with recurrent abdominal pain. Patient denies chest pain or shortness of breath. Localized pain in the abdomen is 8 on a 10 scale. Diet denies nausea vomiting RME / HPI RME / HPI narrative: 09/04/24 20:05 29M with history of alcoholic cirrhosis presents to ED with continued ab pain and fevers/chills. Patient recently signed out AMA from upstairs for this pending pleural/peritoneal aspiration culture results, which showed Pseudomonas and Enterococcus (see diagnostics). Patient has been taking Augmentin at home w/o relief. Related Data Home Medications ?Medication ?Instructions ?Recorded ?Confirmed folic acid 1 mg tablet 1 mg PO QDAY 09/04/24 09/04/24 gabapentin 300 mg capsule 300 mg PO QDAY 09/04/24 09/04/24 spironolactone 25 mg tablet 25 mg PO QDAY 09/04/24 09/04/24 thiamine HCl (vitamin B1) 100 mg 100 mg PO QDAY 09/04/24 09/04/24 tablet tramadol 50 mg tablet 50 mg PO BID PRN Pain 09/04/24 09/04/24 Previous Rx's ?Medication ?Instructions ?Recorded ciprofloxacin HCl 500 mg tablet 500 mg PO BID 5 days #9 tabs 09/06/24 lactulose 20 gram/30 mL oral 10 g (15 mL) PO TID 30 days #1,350 09/06/24 solution mL linezolid 600 mg tablet 600 mg PO BID 5 days #9 tabs 09/06/24 iron 150 mg-vit C 60 mg-folate 1 1 tab PO QDAY 1 month #30 tabs 09/07/24 [id number] tablet propranolol 10 mg tablet 10 mg PO DAILY 1 month #30 tabs 09/07/24 Allergies Allergy/AdvReac Type Severity Reaction Status Date / Time No Known Allergies Allergy Unverified 09/05/24 10:01 Review of Systems Review of Systems Narrative Review of Systems: GEN: No fever, no chills, no weight loss EYES: No discharge, no visual changes, no pain HEENT: No ear pain, no congestion, no sore throat PULM: No shortness of breath, no cough, no congestion CV: No chest pain, no dyspnea on exertion, no palpitations GI: No nausea, no vomiting, no diarrhea, + pain, no constipation : No frequency, no urgency, no dysuria MUSC/SKEL: No joint pain, no back pain SKIN: No rash PSYCH: No hallucinations, no depression HEME/LYMPH: No easy bleeding or bruising tendencies NEURO: No weakness, no headache Past Medical History Past Medical History NEUROLOGIC: Negative Seizures CARDIAC: Negative Cardiac Disorders or Congestive Heart Failure RESPIRATORY: Negative Chronic Obstructive Pulmonary Disease (COPD) or Asthma GASTROINTESTINAL: Positive Cirrhosis GENITOURINARY: Negative Renal Disease ENDOCRINE: Negative Diabetes Mellitus Type 1 or Diabetes Mellitus Type 2 HEMATOLOGIC: Negative Sickle Cell Disease OTHER HISTORY: Positive Blood Transfusions; Negative Blood Transfusion Reaction or Anesthesia Reactions Social History SMOKING STATUS: Never smoker ED Exam Narrative Physical exam: [General: Thin, partially emaciated cachectic but not in any acute distress Head normocephalic HEENT: Within acceptable limits Neck is supple nontender Chest equal chest rise nontender to palpation Respiratory: Clear to auscultation no wheezes crackles or rubs CV: Rate rhythm is regular no murmurs rubs or clicks Abdomen is soft nontender no masses positive bowel sounds all 4 quadrants Back: No CVA tenderness no spinous process tenderness from cervical spine thoracic and lumbar spine Skin: Jaundice, intact no petechiae rash induration ulceration or crepitus Extremities: Moving all extremity against resistance cap refill less than 2 seconds neurosensory intact Neuro: Awake alert oriented x3 Glascow coma 15 no focal deficits] Course Quality Measures none Orders Category Date Time Status Insert IV NOW Care 09/04/24 20:43 Completed XR chest 1V Stat Exams 09/04/24 22:17 Completed Blood Culture (Lab) Stat Lab 09/04/24 21:41 Results CBC Stat Lab 09/04/24 21:20 Completed CMP [Comprehensive Metabolic Panel] Stat Lab 09/04/24 21:20 Completed Lactate (Lactic Acid) Stat Lab 12/25/24 21:20 Completed Lipase Stat Lab 09/04/24 21:20 Completed Procalcitonin Stat Lab 09/04/24 21:20 Completed HYDROcodone*/APAP 5/325 [Stratton 5/325] Med 09/04/24 21:51 Discontinued 1 tab PO X1 ONE cefTRIAXone [Rocephin] 2 gm Med 09/04/24 22:09 Discontinued Sodium Chloride 0.9% (P) [Ns 0.9% (P)] 50 ml IV NOW Vital Signs Vital signs: Vital Signs Temperature 99.5 F 09/04/24 20:38 Pulse Rate 112 H 09/04/24 20:38 Respiratory Rate 16 09/04/24 20:38 Blood Pressure 111/78 09/04/24 20:38 Pulse Oximetry (%) 98 09/04/24 20:38 Oxygen Delivery Method Room Air 09/04/24 20:38 [facility] Patient data External records reviewed:: [facility] previous records Clinical information provided by:: patient Social determinants that could affect healthcare access:: none Patient has the following chronic illnesses:: Cirrhosis pleural effusion possible SBP How is presenting disease/condition affected by chronic disease/condition?: exacerbated by Evaluation data The following diagnostics were reviewed and interpreted by me:: lab results and radiology exam(s) Lab and/or radiology exams considered but not ordered:: CBC shows a mild leukocytosis and improved anemia no thrombocytopenia CMP shows no significant electrolyte imbalances renal impairment and T. bili of 3.7 very mild transaminitis Lipase of 74 Pro-Graeme at 0.18 Large right pleural effusion Interpretation Summary: Review of the culture of the peritoneal fluid on the microbiology say that there is no significant oral antibiotic for the 2 bacterium grew out of their Enterococcus faecium and Pseudomonas aeruginosa. Patient's case discussed with the resident for Dr. Ayers who agrees to accept the patient for admission for enteric antibiotics for peritonitis and large pleural effusion. Medications Medications considered but not ordered:: None Medication administrations:: Medication Administration History Discontinued Medications Acetaminophen (Acetaminophen 325 Mg Tablet) 650 mg PO Q6H PRN PRN Reason: Pain 1-3 and/or Fever >100.1 Stop: 10/04/24 22:53 Hydrocodone Bitart/Acetaminophen (Hydrocodone/Apap 5/325 Tablet) 1 tab PO X1 ONE Stop: 09/04/24 21:52 Last Admin: 09/04/24 21:54 Dose: 1 tab Documented By: Hydrocodone Bitart/Acetaminophen (Hydrocodone/Apap 5/325 Tablet) 1 tab PO Q4HR PRN PRN Reason: pain 4-6 Stop: 09/10/24 14:52 Last Admin: 09/07/24 14:46 Dose: 1 tab Documented By: Admin: 09/07/24 09:18 Dose: 1 tab Documented By: Admin: 09/06/24 13:15 Dose: 1 tab Documented By: Admin: 09/05/24 17:36 Dose: 1 tab Documented By: OCTAVIO Ciprofloxacin (Ciprofloxacin Hcl 250 Mg Tablet) 500 mg PO BID KURTIS Stop: 09/09/24 20:59 Last Admin: 09/07/24 09:10 Dose: 500 mg Documented By: Admin: 09/06/24 20:19 Dose: 500 mg Documented By: KIRSTEN Hydromorphone HCl (Hydromorphone Inj 2 Mg/Ml Vial) 0.5 mg IVP Q6HR PRN PRN Reason: Pain 7-10 Stop: 09/09/24 23:56 Last Admin: 09/05/24 13:24 Dose: 0.5 mg Documented By: Admin: 09/05/24 01:12 Dose: 0.5 mg Documented By: Hydromorphone HCl (Hydromorphone Inj 2 Mg/Ml Vial) 0.5 mg IVP Q4H PRN PRN Reason: Pain 7-10 Stop: 09/09/24 23:56 Last Admin: 09/07/24 15:25 Dose: 0.5 mg Documented By: Admin: 09/07/24 04:41 Dose: 0.5 mg Documented By: Admin: 09/07/24 00:32 Dose: 0.5 mg Documented By: Admin: 09/06/24 20:19 Dose: 0.5 mg Documented By: Admin: 09/06/24 15:43 Dose: 0.5 mg Documented By: Admin: 09/06/24 09:40 Dose: 0.5 mg Documented By: Admin: 09/06/24 05:34 Dose: 0.5 mg Documented By: Admin: 09/06/24 00:01 Dose: 0.5 mg Documented By: Admin: 09/05/24 18:21 Dose: 0.5 mg Documented By: ASUNCION Ceftriaxone Sodium 2 gm/ (Sodium Chloride) 50 mls @ 100 mls/hr IV NOW ONE Stop: 09/04/24 22:38 Last Admin: 09/04/24 22:41 Dose: Not Given Documented By: SE Non-Admin Reason: Cancelled by Provider Albumin Human (Albuminar-25 Ivpb) 25 gm in 100 mls @ 100 mls/hr IV QDAY ONE Stop: 09/05/24 00:15 Last Infusion: 09/05/24 01:02 Dose: Infused Documented By: Admin: 09/04/24 23:47 Dose: 100 mls/hr Documented By: SE Cefepime HCl 2 gm/ Sodium (Chloride) 50 mls @ 100 mls/hr IV Q8HR [facility] Stop: 09/11/24 23:40 Last Admin: 09/05/24 00:57 Dose: Not Given Documented By: SE Non-Admin Reason: Cancelled by Provider Cefepime HCl 2 gm/ Sodium (Chloride) 50 mls @ 100 mls/hr IV X1 ONE Stop: 09/05/24 00:14 Last Admin: 09/05/24 00:58 Dose: Not Given Documented By: SE Non-Admin Reason: Cancelled by Provider Vancomycin/Sodium Chloride (Vancomycin/Ns 1 Gm Ivpb) 200 mls @ 120 mls/hr IV X1 ONE Stop: 09/05/24 01:24 Last Admin: 09/05/24 00:59 Dose: Not Given Documented By: SE Non-Admin Reason: Cancelled by Provider Metronidazole (Flagyl 500 Mg Iv) 500 mg in 100 mls @ 200 mls/hr IV Q8HR [facility] Stop: 09/11/24 23:48 Last Infusion: 09/05/24 08:24 Dose: Infused Documented By: Admin: 09/05/24 06:32 Dose: 200 mls/hr Documented By: Infusion: 09/05/24 01:45 Dose: Infused Documented By: Admin: 09/05/24 01:15 Dose: 200 mls/hr Documented By: Piperacillin Sod/Tazobactam (Sod 4.5 gm/ Sodium Chloride) 100 mls @ 200 mls/hr IV X1 ONE Stop: 09/05/24 00:14 Last Admin: 09/05/24 00:59 Dose: Not Given Documented By: SE Non-Admin Reason: Cancelled by Provider Metronidazole (Flagyl 500 Mg Iv) 500 mg in 100 mls @ 200 mls/hr IV X1 ONE Stop: 09/05/24 00:14 Last Admin: 09/05/24 00:58 Dose: Not Given Documented By: Non-Admin Reason: Cancelled by Provider Sodium Chloride (Ns) 1,000 mls @ 75 mls/hr IV Q10H [facility] Stop: 09/05/24 11:28 Last Infusion: 09/05/24 17:14 Dose: Infused Documented By: Admin: 09/05/24 03:21 Dose: 75 mls/hr Documented By: Piperacillin/Tazobactam/Dextrose (Zosyn) 50 mls @ 100 mls/hr IV X1 ONE Stop: 09/05/24 08:29 Last Infusion: 09/05/24 09:13 Dose: Infused Documented By: Admin: 09/05/24 08:43 Dose: 100 mls/hr Documented By: OCTAVIO Piperacillin/Tazobactam/Dextrose (Zosyn) 50 mls @ 12.5 mls/hr IV Q8HR ONE Stop: 09/05/24 17:59 Ceftriaxone Sodium 2 gm/ (Sodium Chloride) 50 mls @ 100 mls/hr IV QDAY [facility] Stop: 09/12/24 09:14 Last Admin: 09/05/24 10:49 Dose: Not Given Documented By: OCTAVIO Non-Admin Reason: Discontinued Piperacillin Sod/Tazobactam (Sod 4.5 gm/ Sodium Chloride) 100 mls @ 200 mls/hr IV Q6HR [facility] Stop: 09/12/24 11:59 Last Admin: 09/06/24 05:26 Dose: 200 mls/hr Documented By: Infusion: 09/06/24 00:34 Dose: Infused Documented By: Admin: 09/06/24 00:04 Dose: 200 mls/hr Documented By: Infusion: 09/05/24 17:50 Dose: Infused Documented By: Admin: 09/05/24 17:20 Dose: 200 mls/hr Documented By: Infusion: 09/05/24 14:43 Dose: Infused Documented By: Admin: 09/05/24 13:26 Dose: 200 mls/hr Documented By: OCTAVIO Vancomycin HCl (Vancomycin/Water 1250 Mg Ivpb) 250 mls @ 120 mls/hr IV BID@1000,2200 KURTIS; Protocol Stop: 09/12/24 21:59 Last Admin: 09/06/24 09:05 Dose: 120 mls/hr Documented By: Infusion: 09/05/24 23:10 Dose: Infused Documented By: Admin: 09/05/24 21:05 Dose: 120 mls/hr Documented By: DARCI Vancomycin HCl (Vancomycin/Water 1250 Mg Ivpb) 250 mls @ 120 mls/hr IV X1 ONE; Protocol Stop: 09/05/24 12:19 Last Infusion: 09/05/24 17:14 Dose: Infused Documented By: Admin: 09/05/24 13:26 Dose: 120 mls/hr Documented By: OCTAVIO Phytonadione 1 mg/ Sodium (Chloride) 50.5 mls @ 303 mls/hr IV X1 ONE Stop: 09/05/24 12:54 Last Infusion: 09/05/24 17:14 Dose: Infused Documented By: OCTAVIO Co-signed By: GUTIERREZ Admin: 09/05/24 14:16 Dose: 303 mls/hr Documented By: SHERMAN Co-signed By: Phytonadione 1 mg/ Sodium (Chloride) 50.5 mls @ 202 mls/hr IV X1 ONE Stop: 09/05/24 14:44 Last Admin: 09/05/24 17:15 Dose: Not Given Documented By: OCTAVIO Non-Admin Reason: Duplicate Medication on eMAR Phytonadione 5 mg/ Sodium (Chloride) 50.5 mls @ 202 mls/hr IV X1 ONE Stop: 09/05/24 19:14 Last Admin: 09/05/24 20:00 Dose: 202 mls/hr Documented By: DARCI Phytonadione 10 mg/ Sodium (Chloride) 51 mls @ 204 mls/hr IV X1 ONE Stop: 09/06/24 08:59 Last Admin: 09/06/24 09:20 Dose: 204 mls/hr Documented By: PATTY Lactulose (Lactulose Syrup 20 Gm/30 Ml Udc) 10 gm PO TID [facility]; Protocol Stop: 10/05/24 05:59 Last Admin: 09/07/24 14:43 Dose: 10 gm Documented By: Admin: 09/07/24 05:23 Dose: 10 gm Documented By: Admin: 09/06/24 21:01 Dose: 10 gm Documented By: Admin: 09/06/24 13:15 Dose: 10 gm Documented By: Admin: 09/06/24 05:25 Dose: 10 gm Documented By: Admin: 09/05/24 21:04 Dose: 10 gm Documented By: Admin: 09/05/24 17:18 Dose: 10 gm Documented By: Admin: 09/05/24 08:43 Dose: 10 gm Documented By: OCTAVIO Linezolid (Linezolid 600 Mg Tablet) 600 mg PO BID [facility] Stop: 09/09/24 20:59 Last Admin: 09/07/24 09:10 Dose: 600 mg Documented By: Admin: 09/06/24 20:18 Dose: 600 mg Documented By: KIRSTEN Morphine Sulfate (Morphine Sulf Inj 10 Mg/Ml Vial) 1 mg IVP Q3H PRN PRN Reason: PAIN SCALE 7-10 (Severe Stop: 09/09/24 22:53 Last Admin: 09/04/24 23:32 Dose: 1 mg Documented By: SHERMAN Ondansetron HCl (Ondansetron Inj 2 Mg/Ml Inj 2 Ml) 4 mg IV Q6H PRN; Protocol PRN Reason: NAUSEA OR VOMITING Stop: 10/04/24 22:53 Oxycodone/Acetaminophen (Oxycodone/Apap 5/325 Tablet) 1 tab PO Q6H PRN PRN Reason: PAIN SCALE 4-6 (Moderate Stop: 09/09/24 22:53 Last Admin: 09/05/24 08:49 Dose: 1 tab Documented By: OCTAVIO Oxycodone/Acetaminophen (Oxycodone/Apap 5/325 Tablet) 1 tab PO Q4H PRN PRN Reason: PAIN SCALE 4-6 (Moderate Stop: 09/09/24 22:53 Pantoprazole Sodium (Pantoprazole Inj 40 Mg Vial) 40 mg IVP QDAY [facility] Stop: 10/05/24 08:59 Last Admin: 09/07/24 09:10 Dose: 40 mg Documented By: Admin: 09/06/24 09:05 Dose: 40 mg Documented By: Admin: 09/05/24 08:43 Dose: 40 mg Documented By: OCTAVIO Pharmacy Consult (Vancomycin Pharmacy To Dose 1 Each Each) 1 each IV QDAY [facility] Stop: 10/05/24 08:59 Pharmacy Consult (Vancomycin Pharmacy To Dose 1 Each Each) 1 each IV QDAY PRN PRN Reason: PROTOCOL Stop: 10/05/24 09:59 Phytonadione (Phytonadione Inj 10 Mg/Ml Amp) 10 mg IV X1 ONE Stop: 09/06/24 08:28 Propranolol HCl (Propranolol 10 Mg Tablet) 10 mg PO BID KURTIS Stop: 10/07/24 20:59 Sennosides (Senna Tablet) 1 tab PO QDAY PRN; Protocol PRN Reason: constipation Stop: 10/04/24 22:53 Spironolactone (Spironolactone 25 Mg Tablet) 25 mg PO QDAY [facility] Stop: 10/07/24 13:29 Last Admin: 09/07/24 14:42 Dose: 25 mg Documented By: AMY None Consultations Consultation(s) initiated? (list below): No Diagnosis Differential Diagnosis ED Complaint MDM: Peritonitis pleural effusion cirrhosis Most likely diagnosis given after review of the tests above:: Peritonitis cirrhosis Admission Indicated Admission indicated?: indicated Explain why admission is indicated or not indicated:: Quires further medical management Admission Request Was there a request for admission?: No Disposition Plan Disposition Plan: Admit Medical Decision Making Differential Diagnosis Differential Diagnosis: Peritonitis pleural effusion cirrhosis Lab Data 09/07/24 05:34 09/07/24 05:34 Labs: Lab Results 09/04/24 Range/Units 21:20 WBC 11.0 H (3.8-10.6) Thou/mm3 RBC 3.23 L (4.50-5.90) Miln/mm3 Hgb 10.3 L (13.5-16.0) g/dL Hct 30.5 L (41.0-53.0) % MCV 94 (80-100) fL MCH 31.9 (25.0-35.0) pg MCHC 33.8 (31.0-37.0) g/dl RDW Std Deviation 49.1 H (35.1-43.9) fL Plt Count 221 (140-440) Thou/mm3 Neut % (Auto) 77 (37-80) % Lymph % (Auto) 11 (10-50) % Brewster % (Auto) 8 (0-12) % Eos % (Auto) 3 (0-10) % Baso % (Auto) 1 (0-2.5) % Neut # (Auto) 8.4 H (1.8-7.7) Thou/mm3 Lymph # (Auto) 1.2 (1.0-4.8) Thou/mm3 Brewster # (Auto) 0.9 H (0.0-0.8) Thou/mm3 Eos # (Auto) 0.4 (0.0-0.5) Thou/mm3 Baso # (Auto) 0.1 (0.0-0.2) Thou/mm3 Immature Gran # (Auto) 0.06 H (0.00-0.00) Thou/mm3 Absolute Nucleated RBC 0.00 (0.00-0.00) Thou/mm3 Immature Gran % 1 H (0-0) % Nucleated RBC % 0 (0) /100 WBC Sodium 136 (136-145) mMol/L Potassium 4.0 (3.4-5.1) mMol/L Chloride 104 (98-107) mMol/L Carbon Dioxide 22.8 (20.0-31.0) mMol/L Anion Gap 9 (7-16) BUN 12 (9-23) mg/dL Creatinine 0.6 (0.6-1.3) mg/dL Estim Creat Clear Calc 137.3 (>60) mL/min eGFR > 60 (60 - ) See Note BUN/Creatinine Ratio 20 (12-20) Ratio Glucose 93 (74-106) mg/dL Calculated Osmolality 271 L (275-295) Lactic Acid 1.5 (0.4-2.0) mMol/L Calcium 9.4 (8.3-10.6) mg/dL Corrected Calcium 10.3 H (8.5-10.1) mg/dL Total Bilirubin 3.7 H (0.3-1.2) mg/dL AST 66 H (0-34) U/L ALT 28 (10-49) U/L Alkaline Phosphatase 141 H (46-116) U/L Total Protein 7.8 (5.7-8.2) gm/dL Albumin 2.9 L (3.5-5.0) gm/dL Globulin 4.9 H (2.3-3.5) gm/dL Albumin/Globulin Ratio 0.6 L (1.2-2.2) Lipase 74 H (12-53) U/L Procalcitonin 0.18 (0.0-0.49) ng/ml Discharge Plan Plan Patient Disposition: Admit Acute Care w/in Hospital Patient condition on transfer: Stable Problem List Clinical Impression: Peritonitis, Cirrhosis Patient/Caregiver Discharge Instructions Discharge Activity: resume usual activities PA/UNDERGRADUATE INTERN Supervising Physician PA/UNDERGRADUATE INTERN Supervising Physician: Oren Weir ENP
--- NOTE | 2024-09-04 23:06 | ESHP_ITS ---
<Statement entered by Steve Ayers MD - 09/05/24 00:03> I Steve Ayers MD reviewed the note and agree with the resident's assessment & plan with exceptions as below. I have personally reviewed labs, imaging, home meds/prior records, examined the patient, formulated and discussed management plan with the IM team. A 29-year-old M with Hx of decompensated cirrhosis secondary to EtOH use and recent hospitalization a week ago with SBP leaving AMA presented to ED with abdominal pain and subjective fevers. Reports running out of his medications for the past 4 days. Noted to have significant abdominal tenderness with guarding and rigidity, in sinus tachycardia having mild leukocytosis, elevated INR and elevated total bilirubin of 3.7, lactate within normal limits. CXR reflective of right pleural effusion. Admitted for sepsis secondary to bacterial peritonitis likely secondary in the setting of polymicrobial seeding. Started on IV fluid resuscitation, antibiotic coverage with Zosyn 4.5 mg every 6 hours in addition to metronidazole IV 500 mg three times daily. Obtain CT abdomen/pelvis with contrast, blood cultures. Will do paracentesis in case noted to have sufficient ascites to be drained. Consult to general surgery is to be revisited following CT scan results. N.p.o. for now, will start on lactulose, Lasix/spironolactone once bowel perforation has been ruled out by radiography. Documentation for date of: 09/04/24 HPI History of Present Illness Chief complaint: Fever and abdominal pain History of present illness: 29-year-old male with past medical history of end-stage liver disease/cirrhosis secondary to alcohol use disorder open (has been sober for the past 3 to 4 months) complicated with esophageal varices, cholecystectomy presenting to the ED on 09/04 with subjective fever and severe abdominal pain. Of note, patient was recently admitted to the hospital for similar complaints; however, he left AMA and was not properly treated for what was suspected to be spontaneous bacterial peritonitis. During hospitalization, patient had right-sided thoracentesis likely secondary to decompensated liver disease. Patient presents today with no shortness of breath but likely reemergence of right-sided pleural effusion. Patient is an 8/9 out of 10 pain and states that he has been having fever and chills at home. Patient denies having any chest pain, palpitations, shortness of breath, nausea/vomiting/diarrhea, melena, hematochezia, hematemesis, dysuria or hematuria. Of note, patient has been sober for the past 3 to 4 months; however, he used to drink extensively roughly a liter of vodka daily. Medical history: As stated above Surgical history: Cholecystectomy, 2 prior paracentesis Allergies: NKDA Medications: Pending med rec Family history: Extensive history of diabetes and hypertension maternal side of the family Social history: Patient lives with his mother; denies any alcohol use however he used to have extensive use 3 to 4 months ago, no illicit drug use or tobacco use ROS: All 12 systems assessed and the patient denies unless otherwise stated in HPI. In the ED, patient presented normotensive but tachycardic heart rate in the 112, respiratory rate 16, afebrile satting 98 on room air. Pertinent lab findings include WBC 11.0, hemoglobin 10.3 with MCV of 94, platelets 221, BUN 12, creatinine 0.6, lactic acid 1.5, albumin 2.9. Chest x-ray showed significant right lung pneumonia along with moderate right-sided pleural effusion. CT abdomen pelvis read by tele-radiologist as acute appendicitis and small complex ascites likely peritonitis. Patient will be admitted for treatment of secondary peritonitis requiring IV antibiotics, will be kept n.p.o. for possible CT-guided thoracentesis versus possible need for further intra-abdominal intervention and started on lactulose for end-stage liver disease. Exam Vital Signs Temp Pulse Resp BP Pulse Ox O2 Del Method 99.0 F 111 H 20 103/70 100 Room Air 09/04/24 21:14 09/04/24 21:14 09/04/24 21:14 09/04/24 21:14 09/04/24 21:14 09/04/24 21:14 Narrative Exam Physical Exam: GENERAL: Awake, answering questions appropriately, in moderate distress secondary to abdominal pain, appears stated age HEENT: NC/AT. Moist mucosa. PERRLA/EOMI. CARDIO: Heart RRR, no obvious murmurs, no JVD. PULM: No coughing or visible SOB. Lungs CTA B/L. GI: Abdomen tender to palpation on all 4 quadrants but no rigidity, extensive guarding did not assess for rebound tenderness. Incision site from past paracentesis seen, clean dry with no erythema surrounding. Borborygmi apparent SKIN/MSK/EXT: No wounds/discoloration/rashes/edema/amputations. +Pedal pulses present B/L. NEURO: Oriented x3, manager search engine strength 5 out of 5, Moves extremities x4, no focal neurologic deficits Results: Labs 09/04/24 21:20 09/04/24 21:20 Labs: Short CBC 09/04/24 Range/Units 21:20 WBC 11.0 H (3.8-10.6) Thou/mm3 Hgb 10.3 L (13.5-16.0) g/dL Hct 30.5 L (41.0-53.0) % Plt Count 221 (140-440) Thou/mm3 BMP 09/04/24 21:20 Sodium 136 Potassium 4.0 Chloride 104 Carbon Dioxide 22.8 BUN 12 Creatinine 0.6 Glucose 93 Calcium 9.4 Liver Function 09/04/24 Range/Units 21:20 Total Bilirubin 3.7 H (0.3-1.2) mg/dL AST 66 H (0-34) U/L ALT 28 (10-49) U/L Alkaline Phosphatase 141 H (46-116) U/L Albumin 2.9 L (3.5-5.0) gm/dL Quality Measures Quality Measures VTE prophylaxis Medications Home Medications and Allergies Home Medications ?Medication ?Instructions ?Recorded ?Confirmed ?Type folic acid 1 mg tablet 1 mg PO QDAY 09/04/24 09/04/24 History gabapentin 300 mg capsule 300 mg PO QDAY 09/04/24 09/04/24 History spironolactone 25 mg tablet 25 mg PO QDAY 09/04/24 09/04/24 History thiamine HCl (vitamin B1) 100 mg 100 mg PO QDAY 09/04/24 09/04/24 History tablet tramadol 50 mg tablet 50 mg PO BID PRN Pain 09/04/24 09/04/24 History Allergies Allergy/AdvReac Type Severity Reaction Status Date / Time NKA* Allergy Uncoded 09/04/24 20:10 Visit Medications Acetaminophen (Acetaminophen 325 Mg Tablet) 650 mg PO Q6H PRN PRN Reason: Pain 1-3 and/or Fever >100.1 Stop: 10/04/24 22:53 Morphine Sulfate (Morphine Sulf Inj 10 Mg/Ml Vial) 1 mg IVP Q3H PRN PRN Reason: PAIN SCALE 7-10 (Severe Stop: 09/09/24 22:53 Ondansetron HCl (Ondansetron Inj 2 Mg/Ml Inj 2 Ml) 4 mg IV Q6H PRN; Protocol PRN Reason: NAUSEA OR VOMITING Stop: 10/04/24 22:53 Oxycodone/Acetaminophen (Oxycodone/Apap 5/325 Tablet) 1 tab PO Q6H PRN PRN Reason: PAIN SCALE 4-6 (Moderate Stop: 09/09/24 22:53 Sennosides (Senna Tablet) 1 tab PO QDAY PRN; Protocol PRN Reason: constipation Stop: 10/04/24 22:53 Discontinued Medications Hydrocodone Bitart/Acetaminophen (Hydrocodone/Apap 5/325 Tablet) 1 tab PO X1 ONE Stop: 09/04/24 21:52 Last Admin: 09/04/24 21:54 Dose: 1 tab Ceftriaxone Sodium 2 gm/ (Sodium Chloride) 50 mls @ 100 mls/hr IV NOW ONE Stop: 09/04/24 22:38 Last Admin: 09/04/24 22:41 Dose: Not Given Assessment & Plan Plan 29-year-old male with past medical history of end-stage liver disease/cirrhosis secondary to alcohol use disorder open (has been sober for the past 3 to 4 months) complicated with esophageal varices, cholecystectomy presenting to the ED on 09/04 with subjective fever and severe abdominal pain will be admitted for treatment of secondary peritonitis requiring IV antibiotics, will be kept n.p.o. for possible CT-guided thoracentesis versus possible need for further intra-abdominal intervention and started on lactulose for end-stage liver disease. #Secondary peritonitis #Small complex ascites #Acute appendicitis #Tachycardia #Leukocytosis Patient has history of end-stage liver disease secondary to heavy alcohol use disorder; has been sober for the last 3 to 4 months Per patient he developed fever/chills along with severe abdominal pain since leaving AMA Of note, patient presented on 08/28 with similar symptoms and had paracentesis but unfortunately left AMA prior to peritoneal fluid analysis results Peritoneal Gram stain and culture positive for Pseudomonas and Enterococcus On exam patient has severe abdominal tenderness, extensive guarding WBC elevated at 11.0 CT abdomen pelvis telemetry radiologist read for acute appendicitis along with small complex ascites positive for peritonitis 7?points Probable/likely appendicitis by the Del Valle Score. Plan: Will start patient on IV Zosyn and IV metronidazole General Surgery, Dr. Pinzon, consulted appreciate recommendations Multimodal analgesia, IV Dilaudid 0.5 to every 6 for severe pain 7-10 Maintenance IV fluid, 75 cc NS per hour for 1 bag Follow-up blood culures NPO #End-stage liver disease #Cirrhosis secondary to alcohol use disorder As noted above in HPI patient has end-stage liver disease with cirrhosis secondary to alcohol use disorder Child Vail Score 9 points; abdominal surgery prince-operative mortality 30% MELD Score 21 points, 7-10% estimated 90 day mortality Plan: Started patient on lactulose 10 mg 3 times daily Will hold off on diuretics and spironolactone as blood pressure has been on the softer side #Right-sided pleural effusion Patient has recurring right-sided pleural effusion; had thoracentesis on last admission Chest x-ray shows recurrence Patient does not have any acute shortness of breath and is satting 100 on room air Plan: Consider getting IR CT-guided right-sided thoracentesis if patient becomes symptomatic or if oxygen saturation worsens #Normocytic anemia Likely secondary to end-stage liver disease Cannot rule out iron deficiency anemia Plan: Follow-up with morning labs Iron panel and ferritin ordered Hospital Management: Lines: PIV Diet: N.p.o. Bowel: Lactulose 10 mg 3 times daily GI prophylaxis: Protonix DVT prophylaxis: SCD Dispo: IV antibiotics for secondary peritonitis; will consider adding IR CT- guided thoracentesis Code: Full Patient seen and assessed with attending Dr. Ayers and senior resident Dr. Alfred Brown, PGY-1
[2024-09-04 23:20] VITALS: BP 110/63; PULSE 104; RESP 18; O2SAT 99
[2024-09-04] MEDS: MORPHINE SULF INJ 10 MG/ML VIAL IVP (23:32)
--- NOTE | 2024-09-04 23:46 | XR_ITS ---
Examination: CT abdomen with intravenous contrast CT pelvis with intravenous contrast 2-D coronal reconstructions 2-D sagittal reconstructions Date and time of exam:September 05, 2024 1204 hours INDICATIONS: Abdominal pain and distention this week. CTDI: vol (mGy) 5.24 DLP: (mGycm) 319 Technique: Multiple axial sections of the abdomen and pelvis have been obtained. 64 slice high-resolution scanner used. 3 mm axial sections have been obtained, post intravenous injection 60 cc [id number] 2-D sagittal, coronal reconstructions obtained. Low dose protocols were performed. One or more of the following dose reduction techniques were used; automated exposure control, adjustment of the mA and/or KV according to patient size, use of iterative reconstruction technique. Findings: Large right pleural effusion Atelectasis and/or pneumonia right lung base Liver irregular in contour with fatty infiltration Prominent splenomegaly Portosystemic collateral vessels medial to the spleen Mild ascites Diffuse wall thickening involving the colon Aorta normal size No hydronephrosis Abdominal aorta intact There is thickening of the appendix up to 9 mm, no pelvic abscess Mild osteopenia IMPRESSION: Right lower lobe atelectasis and/or pneumonia Large right pleural effusion Cirrhosis Splenomegaly Mild ascites, infection involving the ascites and peritoneal not excluded Again the appendix, the appearance should be clinically correlated
[2024-09-04] MEDS: ALBUMIN HUMAN 25% IVPB 25 GM/100 ML BTL IV (23:47)
[2024-09-05] VITALS (7 sets, daily range): BP systolic 98–110; BP diastolic 53–70; PULSE 77–95; RESP 16–19; TEMP 36.3–37.1; O2SAT 97–100
[2024-09-05] MEDS: HYDROmorphone INJ 2 MG/ML VIAL 0.5 MG IVP ×3 (01:12→18:21)
[2024-09-05] MEDS: metroNIDAZOLE/NS 500 MG IVPB 500 MG/100 ML BAG 200 MG IV ×2 (01:15→06:32)
--- NOTE | 2024-09-05 01:29 | PRELIM_ITS ---
CT scan of the abdomen and pelvis with intravenous contrast (axial sections with sagittal and coronal reformats) September 05, 2024 0004 hoursClinical History:Rule out peritonitis.Comparison: None.Findin gs:Large right pleural effusion, partially imaged. Small left pleural effusion.Right lower lobe conso lidation.Irregular liver margins.Small complex ascites.The gallbladder, pancreas, kidneys and adrenal s are unremarkable.Splenomegaly with anteroposterior diameter of 15.1 cm.No evidence of bowel obstruc tion.Thickening of the appendix measuring up to 1.0 cm, no perforation, no collections. There is no m esenteric or retroperitoneal adenopathy.The urinary bladder is unremarkable. There is no free air.The osseous structures are unremarkable.The portal vein is patent.Impression:1. Small complex ascites, s uspicious for peritonitis.2. Possible acute appendicitis.3. Cirrhosis associated with splenomegaly.4. Bilateral pleural effusions.5. Right lower lobe consolidation, suspicious for pneumonia.Discussion D etails: Results verbally communicated to : Vargas Anthony at 01:20 AM 09/05/2024 Report Electronical ly Signed By: Gunner Ritchie 09/05/2024 1:28:52 AM [EST]
[2024-09-05] MEDS: SODIUM CHLORIDE 0.9% 1000 ML 1,000 ML 75 ML IV (03:21)
[2024-09-05 05:18] LABS: Basophils # (Auto) 0.1 Thou/mm3 (0.0-0.2); Basophils % (Auto) 1 % (0-2.5); Eosinophils # (Auto) 0.5 Thou/mm3 (0.0-0.5); Eosinophils % (Auto) 5 % (0-10); Hematocrit 24.9 % (41.0-53.0); Immature Granulocytes % (Auto) 1 % (0-0); Immature Granulocytes Auto 0.08 Thou/mm3 (0.00-0.00); Lymphocytes # (Auto) 1.3 Thou/mm3 (1.0-4.8); Lymphocytes % (Auto) 13 % (10-50); Mean Corpuscular HGB Conc 34.1 g/dl (31.0-37.0); Mean Corpuscular Hemoglobin 32.6 pg (25.0-35.0); Mean Corpuscular Volume 95 fL (80-100); Monocytes # (Auto) 0.7 Thou/mm3 (0.0-0.8); Monocytes % (Auto) 7 % (0-12); Neutrophils # (Auto) 7.3 Thou/mm3 (1.8-7.7); Neutrophils % (Auto) 73 % (37-80); Nucleated Red Blood Cell % 0 /100 WBC (0); Platelet Count 214 Thou/mm3 (140-440); RDW Standard Deviation 49.6 fL (35.1-43.9); Red Blood Count 2.61 Miln/mm3 (4.50-5.90); White Blood Count 10.1 Thou/mm3 (3.8-10.6)
[2024-09-05 05:23] LABS: Hemoglobin 8.5 g/dL (13.5-16.0)
[2024-09-05 05:28] LABS: INR 1.7 (0.9-1.3); Prothrombin Time 17.6 Seconds (9.0-12.2)
[2024-09-05 05:36] LABS: Alanine Aminotransferase 23 U/L (10-49); Albumin, Serum 2.8 gm/dL (3.5-5.0); Albumin/Globulin Ratio 0.7 (1.2-2.2); Alkaline Phosphatase 104 U/L (46-116); Anion Gap 7 (7-16); Aspartate Amino Transferase 51 U/L (0-34); BUN/Creatinine Ratio 20 Ratio (12-20); Bilirubin,Total 4.1 mg/dL (0.3-1.2); Blood Urea Nitrogen 12 mg/dL (9-23); Calcium 9.1 mg/dL (8.3-10.6); Calcium (Corrected) 10.1 mg/dL (8.5-10.1); Carbon Dioxide 23.5 mMol/L (20.0-31.0); Chloride 105 mMol/L (98-107); Creatinine (Component) 0.6 mg/dL (0.6-1.3); Estimated Creatinine Clearance 142.3 mL/min (>60); Globulin 4.1 gm/dL (2.3-3.5); Glucose 80 mg/dL (74-106); Magnesium 1.9 mg/dL (1.6-2.6); Osmolality,Calculated 268 (275-295); Phosphorous 5.5 mg/dL (2.4-5.1); Potassium 3.9 mMol/L (3.4-5.1); Sodium 135 mMol/L (136-145); Thyroid Stimulating Hormone 6.75 uIU/mL (0.55-4.78); Total Protein 6.9 gm/dL (5.7-8.2); eGFR > 60 See Note
[2024-09-05 06:34] LABS: Ferritin 1094 ng/mL (10.5-307.3); Total Iron Binding Capacity 183 mcg/dL (250-425)
[2024-09-05 06:43] LABS: Iron 105 mcg/dL (65-175); Percent Iron Saturation 57 % (20-55); Unsaturated Iron Binding 78 (225-295)
--- NOTE | 2024-09-05 07:29 | PC.NURSE ---
called er nurse. she confirmed procedure was cancelled.
[2024-09-05 07:36] LABS: Free T4 (Free Thyroxine) 1.24 ng/dL (0.89-1.76)
[2024-09-05] MEDS: PIPER/TAZO 3.375 GM 50 ML IV (08:43)
[2024-09-05] MEDS: LACTULOSE SYRUP 20 GM/30 ML UDC 10 GM PO ×3 (08:43→21:04)
[2024-09-05] MEDS: PANTOPRAZOLE INJ 40 MG VIAL IVP (08:43)
[2024-09-05] MEDS: oxyCODONE/APAP 5/325 TABLET 1 TAB PO (08:49)
[2024-09-05] MEDS: VANCOMYCIN/WATER 1250 MG IVPB 250 ML 120 MG IV ×2 (13:26→21:05)
[2024-09-05] MEDS: PIPER/TAZO INJ 4.5 GM in SODIUM CHLORIDE 0.9% (P) 100 ML IV ×2 (13:26→17:20)
[2024-09-05] MEDS: PHYTONADIONE IV (14:16)
[2024-09-05] MEDS: SODIUM CHLORIDE 0.9% IV (14:16)
--- NOTE | 2024-09-05 14:17 | PC.CC ---
Patient is a 29 year-old male who presents to [facility]; for SBP and R-side pleural effusion. Celena LUCERO made [id number] contact with patient. ASW introduced self, role, and reason for visit. Patient appeared alert and oriented to self, location, and situation. Patient was pleasant and engaged in initial assessment. Patient confirmed information on demorgraphics and reports to living with his sister. The patient is able to ambulate independently and complete his own ADLs. Patient does not use any DME. Patient receives primary care with Michael Munroe and uses [facility] for prescription medication. Patient stated his next of kin is his mother, Rashmi Valencia [phone]. Upon discharge the patient plans to return back home. guest services coordinator to follow-up with any discharge needs.
--- NOTE | 2024-09-05 15:34 | ESPR_ITS ---
Documentation for date of: 09/05/24 Subjective Subjective Interval history: Patient was at bedside this morning. Still complaining of abdominal pain with light palpation. Patient stated that he has abstained from alcohol for the last 4 to 5 months. Surgery stated that patient did not require surgery at this time. Change patient's antibiotics to Zosyn and Vanco. Gave 1 mg of vitamin K given his coagulopathy. Consulted ID due to history of Pseudomonas and Enterococcus in the peritoneal fluid cultures. No other complaints at this time. Exam Vital Signs Temp Pulse Resp BP Pulse Ox O2 Del Method 98.0 F 78 17 98/58 L 100 Room Air 09/05/24 14:28 09/05/24 14:28 09/05/24 14:28 09/05/24 14:28 09/05/24 14:28 09/05/24 14:28 Narrative Exam General: A/O x3, mild distress Eyes: PERRL, EOMI. Icteric , vision grossly intact. Ears: No ear pain, no ear discharge, Hearing grossly intact. Nose: No nasal discharge. Mouth/Throat: Dry mucous membranes, no redness, no lesions. Neck: Neck supple, non-tender, no cervical lymphadenopathy. Lungs: Clear MENDEL to auscultation and percussion, No accessory muscle use. Cardio: Normal S1/S2, regular rhythm, no murmurs, no JVD Abdomen: Soft, diffuse tenderness with mild palpation, no palpable masses, peristalsis present, no guarding or rebound. Extremities: Symmetrical, no significant deformities, no peripheral edema , non-tender, peripheral pulses presents. Skin: No rashes, no lesions, warm to touch. Neuro: No focal neurological deficits. motor and sensory intact Objective Labs 09/06/24 05:06 09/06/24 05:06 Labs: Laboratory Results - last 24 hr 09/04/24 09/05/24 21:20 05:00 WBC 11.0 H 10.1 RBC 3.23 L 2.61 L Hgb 10.3 L 8.5 L Hct 30.5 L 24.9 L MCV 94 95 MCH 31.9 32.6 MCHC 33.8 34.1 RDW Std Deviation 49.1 H 49.6 H Plt Count 221 214 Neut % (Auto) 77 73 Lymph % (Auto) 11 13 Ashley % (Auto) 8 7 Eos % (Auto) 3 5 Baso % (Auto) 1 1 Neut # (Auto) 8.4 H 7.3 Lymph # (Auto) 1.2 1.3 Ashley # (Auto) 0.9 H 0.7 Eos # (Auto) 0.4 0.5 Baso # (Auto) 0.1 0.1 Immature Gran # (Auto) 0.06 H 0.08 H Absolute Nucleated RBC 0.00 0.00 Immature Gran % 1 H 1 H Nucleated RBC % 0 0 PT 17.6 H INR 1.7 H Sodium 136 135 L Potassium 4.0 3.9 Chloride 104 105 Carbon Dioxide 22.8 23.5 Anion Gap 9 7 BUN 12 12 Creatinine 0.6 0.6 Estim Creat Clear Calc 137.3 142.3 eGFR > 60 > 60 BUN/Creatinine Ratio 20 20 Glucose 93 80 Calculated Osmolality 271 L 268 L Lactic Acid 1.5 Calcium 9.4 9.1 Corrected Calcium 10.3 H 10.1 Phosphorus 5.5 H Magnesium 1.9 Iron 105 TIBC 183 L Iron Saturation 57 H Unsat Iron Binding 78 L Ferritin 1094 H Total Bilirubin 3.7 H 4.1 H AST 66 H 51 H ALT 28 23 Alkaline Phosphatase 141 H 104 D Total Protein 7.8 6.9 Albumin 2.9 L 2.8 L Globulin 4.9 H 4.1 H Albumin/Globulin Ratio 0.6 L 0.7 L Lipase 74 H Procalcitonin 0.18 TSH 6.75 H Free T4 1.24 Quality Measures Quality Measures VTE prophylaxis Assessment & Plan Assessment Current Active Medications: Generic Name Dose Route Start Last Admin Trade Name Freq PRN Reason Stop Dose Admin Acetaminophen 650 mg 09/04/24 22:54 Acetaminophen 325 Mg Tablet PO 10/04/24 22:53 Q6H PRN Pain 1-3 and/or Fever >100.1 Hydrocodone Bitart/Acetaminophen 1 tab 09/05/24 14:53 Hydrocodone/Apap 5/325 Tablet PO 09/10/24 14:52 Q4HR PRN pain 4-6 Hydromorphone HCl 0.5 mg 09/05/24 14:53 Hydromorphone Inj 2 Mg/Ml Vial IVP 09/09/24 23:56 Q4H PRN Pain 7-10 Piperacillin Sod/Tazobactam 100 mls @ 200 mls/hr 09/05/24 12:00 09/05/24 14:43 Sod 4.5 gm/ Sodium Chloride IV 09/12/24 11:59 Infused Q6HR KURTIS Infusion Vancomycin HCl 250 mls @ 120 mls/hr 09/05/24 10:15 Vancomycin/Water 1250 Mg Ivpb IV 09/12/24 10:14 BID@1000,2200 KURTIS Protocol Lactulose 10 gm 09/05/24 06:00 09/05/24 08:43 Lactulose Syrup 20 Gm/30 Ml Udc PO 10/05/24 05:59 10 gm TID KURTIS Administration Protocol Ondansetron HCl 4 mg 09/04/24 22:54 Ondansetron Inj 2 Mg/Ml Inj 2 Ml IV 10/04/24 22:53 Q6H PRN NAUSEA OR VOMITING Protocol Pantoprazole Sodium 40 mg 09/05/24 09:00 09/05/24 08:43 Pantoprazole Inj 40 Mg Vial IVP 10/05/24 08:59 40 mg QDAY KURTIS Administration Pharmacy Consult 1 each 09/05/24 10:00 Vancomycin Pharmacy To Dose 1 Each Each IV 10/05/24 09:59 QDAY PRN PROTOCOL Plan 29-year-old male with past medical history of cirrhosis secondary to alcohol use disorder, esophageal varices, and cholecystostomy was admitted to the hospital on 09/04/2024 due to possible spontaneous bacterial peritonitis in the setting of cirrhosis. #Cirrhosis secondary to alcohol use disorder #Alcohol use disorder #Cephalopathy #SBP #Appendicitis #Leukocytosis #Hyperbilirubinemia ?Patient came in with abdominal pain ? Patient states that he has abstained from alcohol for the last 4 to 5 months. ?Abdomen/pelvis CT showed cirrhosis, large right pleural effusion, mild ascites, and findings concerning for appendicitis ? Per general Gram stain culture was positive for Enterococcus and Pseudomonas in past admission ?Patient's initial INR was 1.7 and repeat was 1.6 today ?WBCs 10.1 today ?She bilirubin 4.1 today ? Child-Vail score of 9 ?MELD NA score of 20 Plan: ?Will continue Zosyn and vancomycin [09/05/2024?] ?Gave 1 mg of vitamin K x 2 ?Blood cultures ordered ? General Surgery consulted, pressure recommendations #Right-sided pleural effusion ? Chest x-ray showed recurrence of right-sided pleural effusion ? This is most likely in the setting of cirrhosis Plan: ? Consider ultrasound-guided thoracentesis # Normochromic anemia ? Likely anemia chronic disease ?Hemoglobin 8.5 today ? Ferritin 1094 and TIBC 183 Plan: ?Will replete of hemoglobin less than 7 ? Will continue to monitor Disposition: Patient seen in ED pending ID recs, no surgery for now, continue Vanc/Zosyn Diet: PUD GI prophylaxis: Protonix DVT prophylaxis: SCDs Code:Full Case disclosed with Attending Dr. Quezada and My senior Dr. Jimenes PGY2. Jared Carrillo PGY1 L Mr Reyes is a 29-year-old male with past medical history of cirrhosis secondary to alcohol use disorder, esophageal varices, and cholecystostomy who was admitted on 09/04/2024 due to possible spontaneous bacterial peritonitis in the setting of liver cirrhosis and acute appendicitis noted on CT imaging. Patient was started on antibitoics and general surgery consulted. As per recommendations, patient is not a candidate for lap appendectomy at this time as INR 1.7. Patient has coagulopathy likely due to decompensated liver disease, however PLT within normal limits. We gave Vit K 1mg x1 --> follow up INR 1.6. Will repeat 5mg Vit K x1 overnight, and monitor PT/INR q6H. If improved, will follow up with gen surg re: surgical intervention. Diet resumed for now. C/n vanco + zosyn to cover for SBP and pseudomonas. No active bleeding at this time, abdominal pain improved, Hb and Hct wnl. Patient examined and case discussed with the team including attending physician. Note reviewed, I agree with the care plan as documented. - Julio Cesar Jimenes MD, PGY 2 Attending Provider Attestation/Addendum I have discussed and was present for the essential components of the history, physical examination, diagnosis, and treatment plan with the resident. I agree with the patient's care as documented by the resident and amended herein by me. Ady Quezada DO. Although this document has been carefully reviewed, there may still be some phonetic and other typographical errors. These errors are purely grammatical due to imperfections in the software program and should not be construed in any way to compromise the substance of the patient's medical care during this visit.
[2024-09-05] MEDS: HYDROcodone/APAP 5/325 TABLET 1 TAB PO (17:36)
[2024-09-05 18:08] LABS: INR 1.6 (0.9-1.3)
[2024-09-05] MEDS: PHYTONADIONE INJ 5 MG in SODIUM CHLORIDE 0.9% 50 ML 202 MG IV (20:00)
[2024-09-06] VITALS (7 sets, daily range): BP systolic 93–106; BP diastolic 59–71; PULSE 91–106; RESP 16–24; TEMP 36.1–36.4; O2SAT 97–100
[2024-09-06] MEDS: HYDROmorphone INJ 2 MG/ML VIAL 0.5 MG IVP ×5 (00:01→20:19)
[2024-09-06] MEDS: PIPER/TAZO INJ 4.5 GM in SODIUM CHLORIDE 0.9% (P) 100 ML IV ×2 (00:04→05:26)
[2024-09-06 01:02] LABS: INR 1.6 (0.9-1.3)
[2024-09-06] MEDS: LACTULOSE SYRUP 20 GM/30 ML UDC 10 GM PO ×3 (05:25→21:01)
[2024-09-06 06:55] LABS: Alanine Aminotransferase 27 U/L (10-49); Albumin, Serum 2.7 gm/dL (3.5-5.0); Albumin/Globulin Ratio 0.7 (1.2-2.2); Alkaline Phosphatase 95 U/L (46-116); Anion Gap 7 (7-16); Aspartate Amino Transferase 49 U/L (0-34); BUN/Creatinine Ratio 17 Ratio (12-20); Bilirubin,Total 3.9 mg/dL (0.3-1.2); Blood Urea Nitrogen 10 mg/dL (9-23); Calcium 8.6 mg/dL (8.3-10.6); Calcium (Corrected) 9.6 mg/dL (8.5-10.1); Carbon Dioxide 21.3 mMol/L (20.0-31.0); Chloride 106 mMol/L (98-107); Creatinine (Component) 0.6 mg/dL (0.6-1.3); Estimated Creatinine Clearance 142.3 mL/min (>60); Glucose 76 mg/dL (74-106); Osmolality,Calculated 266 (275-295); Potassium 3.7 mMol/L (3.4-5.1); Sodium 134 mMol/L (136-145); Total Protein 6.7 gm/dL (5.7-8.2); eGFR > 60 See Note
[2024-09-06 07:34] LABS: Basophils # (Auto) 0.1 Thou/mm3 (0.0-0.2); Basophils % (Auto) 1 % (0-2.5); Eosinophils # (Auto) 0.4 Thou/mm3 (0.0-0.5); Eosinophils % (Auto) 5 % (0-10); Hematocrit 25.7 % (41.0-53.0); Immature Granulocytes % (Auto) 1 % (0-0); Immature Granulocytes Auto 0.06 Thou/mm3 (0.00-0.00); Lymphocytes # (Auto) 0.7 Thou/mm3 (1.0-4.8); Lymphocytes % (Auto) 9 % (10-50); Mean Corpuscular HGB Conc 33.1 g/dl (31.0-37.0); Mean Corpuscular Hemoglobin 32.6 pg (25.0-35.0); Mean Corpuscular Volume 99 fL (80-100); Monocytes # (Auto) 0.7 Thou/mm3 (0.0-0.8); Monocytes % (Auto) 9 % (0-12); Neutrophils # (Auto) 6.4 Thou/mm3 (1.8-7.7); Neutrophils % (Auto) 77 % (37-80); Nucleated Red Blood Cell % 0 /100 WBC (0); Platelet Count 223 Thou/mm3 (140-440); RDW Standard Deviation 50.8 fL (35.1-43.9); Red Blood Count 2.61 Miln/mm3 (4.50-5.90); White Blood Count 8.3 Thou/mm3 (3.8-10.6)
[2024-09-06 07:38] LABS: Hemoglobin 8.5 g/dL (13.5-16.0)
[2024-09-06] MEDS: VANCOMYCIN/WATER 1250 MG IVPB 250 ML 120 MG IV (09:05)
[2024-09-06] MEDS: PANTOPRAZOLE INJ 40 MG VIAL IVP (09:05)
[2024-09-06] MEDS: PHYTONADIONE INJ 10 MG in SODIUM CHLORIDE 0.9% 50 ML 204 MG IV (09:20)
--- NOTE | 2024-09-06 10:12 | CHAP ---
Patient expressed gratitude for visit and prayer.
--- NOTE | 2024-09-06 10:31 | PC.NURSE ---
Dr Lakhani made aware of new consult
--- NOTE | 2024-09-06 11:14 | PD.IDPROG ---
Subjective Subjective Interval history: asked to see. minimal abd pain. ? appy but delay with inr noted Exam Vital Signs Temp Pulse Resp BP Pulse Ox O2 Del Method 97.3 F 102 H 16 99/62 98 Room Air 09/06/24 08:00 09/06/24 08:00 09/06/24 08:00 09/06/24 08:00 09/06/24 08:00 09/06/24 08:00 Narrative Exam abd full with ascites . bili noted. no drain Objective - Internal Medicine Labs 09/06/24 05:06 09/06/24 05:06 Labs: Laboratory Results - last 24 hr 09/05/24 09/06/24 09/06/24 17:40 00:30 05:06 WBC 8.3 RBC 2.61 L Hgb 8.5 L Hct 25.7 L MCV 99 MCH 32.6 MCHC 33.1 RDW Std Deviation 50.8 H Plt Count 223 Neut % (Auto) 77 Lymph % (Auto) 9 L Hudson % (Auto) 9 Eos % (Auto) 5 Baso % (Auto) 1 Neut # (Auto) 6.4 Lymph # (Auto) 0.7 L Hudson # (Auto) 0.7 Eos # (Auto) 0.4 Baso # (Auto) 0.1 Immature Gran # (Auto) 0.06 H Absolute Nucleated RBC 0.00 Immature Gran % 1 H Nucleated RBC % 0 PT 17.0 H 17.0 H INR 1.6 H 1.6 H Sodium 134 L Potassium 3.7 Chloride 106 Carbon Dioxide 21.3 Anion Gap 7 BUN 10 Creatinine 0.6 Estim Creat Clear Calc 142.3 eGFR > 60 BUN/Creatinine Ratio 17 Glucose 76 Calculated Osmolality 266 L Calcium 8.6 Corrected Calcium 9.6 Total Bilirubin 3.9 H AST 49 H ALT 27 Alkaline Phosphatase 95 Total Protein 6.7 Albumin 2.7 L Globulin 4.0 H Albumin/Globulin Ratio 0.7 L Assessment & Plan A&P Narrative sbp cirrhosis cx noted pseudomonas and enterococcus. so to po agents. 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
[2024-09-06] MEDS: HYDROcodone/APAP 5/325 TABLET 1 TAB PO (13:15)
--- NOTE | 2024-09-06 13:34 | ESCONSULT_ITS ---
RE: JOSH RACHEL : 1995 DATE OF CONSULTATION: 09/06/2024 REFERRING PHYSICIAN: Steve Ayers MD REASON FOR CONSULTATION: Cirrhosis and peritonitis, it is thought to be subacute bacterial peritonitis, although with possible appendicitis noted on imaging. HISTORY OF PRESENT ILLNESS: The patient is a 29-year-old with some right-sided abdominal pain, which is variable in nature and seems to be worse in the morning. He just took some Dilaudid, so he is not having much pain at the moment, but he is fairly nice gentleman and loquacious. PAST MEDICAL HISTORY: Include liver disease with recent SBP, hyperlipidemia. There is no ammonia level and an INR of 1.6. He was found to have esophageal varices as well on prior EGD. He has had prior procedures and possibly several peritonitis drainage procedures. ALLERGIES: NONE NOTED. IMMUNIZATIONS: Last tetanus is not known. He does not take flu shot every year, does not take COVID vaccine or pneumococcal vaccine. FAMILY HISTORY: Diabetes in his mother and other relatives and maternal grandmother had one other problem. 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 He worked in [place] until about a month ago and came back here because he has family here. He used to drink fairly heavy. He denies drug use, tobacco use, and is doing remarkably well. He has low-grade fevers at most. Those are not significant. The 100-degree temperatures are not dramatically significant. He is eating, taking orally and hopes to go home in the near future. PHYSICAL EXAMINATION: His exam is benign. ABDOMEN: He has a predominant abdomen and is visibly jaundiced. HEENT: Benign. HEART: Benign. LUNGS: Benign. ABDOMEN: Benign. There is no appreciable abdominal tenderness. RECOMMENDATIONS: I do not appreciate any reason for prolonged antibiotics in this gentleman and the usual treatment for spontaneous bacterial peritonitis is about 5 days. So, he has had a couple of days of vancomycin and Zosyn to which the organisms are sensitive and so I am going to switch him to oral therapy and go home on that possibly as early as tomorrow if he can get it approved. He will be on Cipro and Linezolid through about Monday. DT: 11:20:42 TT: 12:51:00 Ref: [id number] - TID: [id number] MTDD
--- NOTE | 2024-09-06 13:51 | PC.SS ---
Follow up note: Patient to be switched to oral antibiotics. Possible d/c Sat per physician
[2024-09-06 14:24] LABS: INR 1.6 (0.9-1.3); Prothrombin Time 17.2 Seconds (9.0-12.2)
--- NOTE | 2024-09-06 14:27 | PD.RESCONSUL ---
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 Patient was recently hospitalized for similar symptoms, however left AMA prior to completing medical treatment. Today at bedside, patient reports improvement to his pain however has received pain medication. Abdominal/pelvis CT at time of admission revealed cirrhosis, large right pleural effusion, mild ascites, and concerns for appendicitis. General surgery team has been consulted, however patient's INR was 1.7 on admission improving to 1.6 after vitamin K supplementation. Patient denies any fevers at this time. Blood cultures from 09/04 are negative on 24-hour preliminary reads, pleural fluid analysis from 08/29 revealed Staph hominis SSP hominis, peritoneal fluid from 08/29 revealed Pseudomonas aeruginosa and Enterococcus faecium grp D. Infectious disease team consulted for peritonitis. Past medical history: As noted above Family history: Type 2 diabetes mellitus, hypertension, alcohol use disorder Surgical history: Cholecystectomy, two paracentesis Social history: Reports quitting alcohol 3-4 months ago, denies tobacco or illicit drug use. 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 Vaccination history: Denies flu/COVID/pneumococcal vaccines. Unsure of previous tetanus shot cc:: cc: Steve Ayers MD Exam Vital Signs Temp Pulse Resp BP Pulse Ox O2 Del Method 97.0 F 101 H 18 94/64 98 Room Air 09/06/24 12:09/06/24 12:09/06/24 12:09/06/24 12:09/06/24 12:09/06/24 12:00 Narrative Exam General: AOx3, cooperative HEENT: Atraumatic/normocephalic, KEILA, neck supple without masses Heart: RRR, S1 and S2 without clicks or murmurs Lungs: Clear on auscultation bilaterally, no difficulty breathing Abdomen: Predominant but soft abdomen, diffuse tenderness Skin: Jaundice throughout, intact, no cyanosis or edema noted Neuro: No focal neurological deficits noted Results Labs 09/06/24 05:06 09/06/24 05:06 Labs: Short CBC 09/06/24 Range/Units 05:06 WBC 8.3 (3.8-10.6) Thou/mm3 Hgb 8.5 L (13.5-16.0) g/dL Hct 25.7 L (41.0-53.0) % Plt Count 223 (140-440) Thou/mm3 BMP 09/06/24 05:06 Sodium 134 L Potassium 3.7 Chloride 106 Carbon Dioxide 21.3 BUN 10 Creatinine 0.6 Glucose 76 Calcium 8.6 Liver Function 09/06/24 Range/Units 05:06 Total Bilirubin 3.9 H (0.3-1.2) mg/dL AST 49 H (0-34) U/L ALT 27 (10-49) U/L Alkaline Phosphatase 95 (46-116) U/L Albumin 2.7 L (3.5-5.0) gm/dL Quality Measures Quality Measures VTE prophylaxis (SCDs) Medications Home Medications and Allergies Home Medications ?Medication ?Instructions ?Recorded ?Confirmed ?Type folic acid 1 mg tablet 1 mg PO QDAY 09/04/24 09/04/24 History gabapentin 300 mg capsule 300 mg PO QDAY 09/04/24 09/04/24 History spironolactone 25 mg tablet 25 mg PO QDAY 09/04/24 09/04/24 History thiamine HCl (vitamin B1) 100 mg 100 mg PO QDAY 09/04/24 09/04/24 History tablet tramadol 50 mg tablet 50 mg PO BID PRN Pain 09/04/24 09/04/24 History Allergies Allergy/AdvReac Type Severity Reaction Status Date / Time No Known Allergies Allergy Unverified 09/05/24 10:01 Visit Medications Acetaminophen (Acetaminophen 325 Mg Tablet) 650 mg PO Q6H PRN PRN Reason: Pain 1-3 and/or Fever >100.1 Stop: 10/04/24 22:53 Hydrocodone Bitart/Acetaminophen (Hydrocodone/Apap 5/325 Tablet) 1 tab PO Q4HR PRN PRN Reason: pain 4-6 Stop: 09/10/24 14:52 Last Admin: 09/06/24 13:15 Dose: 1 tab Ciprofloxacin (Ciprofloxacin Hcl 250 Mg Tablet) 500 mg PO BID [facility] Stop: 09/09/24 20:59 Hydromorphone HCl (Hydromorphone Inj 2 Mg/Ml Vial) 0.5 mg IVP Q4H PRN PRN Reason: Pain 7-10 Stop: 09/09/24 23:56 Last Admin: 09/06/24 09:40 Dose: 0.5 mg Lactulose (Lactulose Syrup 20 Gm/30 Ml Udc) 10 gm PO TID [facility]; Protocol Stop: 10/05/24 05:59 Last Admin: 09/06/24 13:15 Dose: 10 gm Linezolid (Linezolid 600 Mg Tablet) 600 mg PO BID [facility] Stop: 09/09/24 20:59 Ondansetron HCl (Ondansetron Inj 2 Mg/Ml Inj 2 Ml) 4 mg IV Q6H PRN; Protocol PRN Reason: NAUSEA OR VOMITING Stop: 10/04/24 22:53 Pantoprazole Sodium (Pantoprazole Inj 40 Mg Vial) 40 mg IVP QDAY [facility] Stop: 10/05/24 08:59 Last Admin: 09/06/24 09:05 Dose: 40 mg Discontinued Medications Hydrocodone Bitart/Acetaminophen (Hydrocodone/Apap 5/325 Tablet) 1 tab PO X1 ONE Stop: 09/04/24 21:52 Last Admin: 09/04/24 21:54 Dose: 1 tab Hydromorphone HCl (Hydromorphone Inj 2 Mg/Ml Vial) 0.5 mg IVP Q6HR PRN PRN Reason: Pain 7-10 Stop: 09/09/24 23:56 Last Admin: 09/05/24 13:24 Dose: 0.5 mg Ceftriaxone Sodium 2 gm/ (Sodium Chloride) 50 mls @ 100 mls/hr IV NOW ONE Stop: 09/04/24 22:38 Last Admin: 09/04/24 22:41 Dose: Not Given Albumin Human (Albuminar-25 Ivpb) 25 gm in 100 mls @ 100 mls/hr IV QDAY ONE Stop: 09/05/24 00:15 Last Infusion: 09/05/24 01:02 Dose: Infused Cefepime HCl 2 gm/ Sodium (Chloride) 50 mls @ 100 mls/hr IV Q8HR [facility] Stop: 09/11/24 23:40 Last Admin: 09/05/24 00:57 Dose: Not Given Cefepime HCl 2 gm/ Sodium (Chloride) 50 mls @ 100 mls/hr IV X1 ONE Stop: 09/05/24 00:14 Last Admin: 09/05/24 00:58 Dose: Not Given Vancomycin/Sodium Chloride (Vancomycin/Ns 1 Gm Ivpb) 200 mls @ 120 mls/hr IV X1 ONE Stop: 09/05/24 01:24 Last Admin: 09/05/24 00:59 Dose: Not Given Metronidazole (Flagyl 500 Mg Iv) 500 mg in 100 mls @ 200 mls/hr IV Q8HR [facility] Stop: 09/11/24 23:48 Last Infusion: 09/05/24 08:24 Dose: Infused Piperacillin Sod/Tazobactam (Sod 4.5 gm/ Sodium Chloride) 100 mls @ 200 mls/hr IV X1 ONE Stop: 09/05/24 00:14 Last Admin: 09/05/24 00:59 Dose: Not Given Metronidazole (Flagyl 500 Mg Iv) 500 mg in 100 mls @ 200 mls/hr IV X1 ONE Stop: 09/05/24 00:14 Last Admin: 09/05/24 00:58 Dose: Not Given Sodium Chloride (Ns) 1,000 mls @ 75 mls/hr IV Q10H [facility] Stop: 09/05/24 11:28 Last Infusion: 09/05/24 17:14 Dose: Infused Piperacillin/Tazobactam/Dextrose (Zosyn) 50 mls @ 100 mls/hr IV X1 ONE Stop: 09/05/24 08:29 Last Infusion: 09/05/24 09:13 Dose: Infused Piperacillin/Tazobactam/Dextrose (Zosyn) 50 mls @ 12.5 mls/hr IV Q8HR ONE Stop: 09/05/24 17:59 Ceftriaxone Sodium 2 gm/ (Sodium Chloride) 50 mls @ 100 mls/hr IV QDAY [facility] Stop: 09/12/24 09:14 Last Admin: 09/05/24 10:49 Dose: Not Given Piperacillin Sod/Tazobactam (Sod 4.5 gm/ Sodium Chloride) 100 mls @ 200 mls/hr IV Q6HR [facility] Stop: 09/12/24 11:59 Last Admin: 09/06/24 05:26 Dose: 200 mls/hr Vancomycin HCl (Vancomycin/Water 1250 Mg Ivpb) 250 mls @ 120 mls/hr IV BID@1000,2200 [facility]; Protocol Stop: 09/12/24 21:59 Last Admin: 09/06/24 09:05 Dose: 120 mls/hr Vancomycin HCl (Vancomycin/Water 1250 Mg Ivpb) 250 mls @ 120 mls/hr IV X1 ONE; Protocol Stop: 09/05/24 12:19 Last Infusion: 09/05/24 17:14 Dose: Infused Phytonadione 1 mg/ Sodium (Chloride) 50.5 mls @ 303 mls/hr IV X1 ONE Stop: 09/05/24 12:54 Last Infusion: 09/05/24 17:14 Dose: Infused Phytonadione 1 mg/ Sodium (Chloride) 50.5 mls @ 202 mls/hr IV X1 ONE Stop: 09/05/24 14:44 Last Admin: 09/05/24 17:15 Dose: Not Given Phytonadione 5 mg/ Sodium (Chloride) 50.5 mls @ 202 mls/hr IV X1 ONE Stop: 09/05/24 19:14 Last Admin: 09/05/24 20:00 Dose: 202 mls/hr Phytonadione 10 mg/ Sodium (Chloride) 51 mls @ 204 mls/hr IV X1 ONE Stop: 09/06/24 08:59 Last Admin: 09/06/24 09:20 Dose: 204 mls/hr Morphine Sulfate (Morphine Sulf Inj 10 Mg/Ml Vial) 1 mg IVP Q3H PRN PRN Reason: PAIN SCALE 7-10 (Severe Stop: 09/09/24 22:53 Last Admin: 09/04/24 23:32 Dose: 1 mg Oxycodone/Acetaminophen (Oxycodone/Apap 5/325 Tablet) 1 tab PO Q6H PRN PRN Reason: PAIN SCALE 4-6 (Moderate Stop: 09/09/24 22:53 Last Admin: 09/05/24 08:49 Dose: 1 tab Oxycodone/Acetaminophen (Oxycodone/Apap 5/325 Tablet) 1 tab PO Q4H PRN PRN Reason: PAIN SCALE 4-6 (Moderate Stop: 09/09/24 22:53 Pharmacy Consult (Vancomycin Pharmacy To Dose 1 Each Each) 1 each IV QDAY [facility] Stop: 10/05/24 08:59 Pharmacy Consult (Vancomycin Pharmacy To Dose 1 Each Each) 1 each IV QDAY PRN PRN Reason: PROTOCOL Stop: 10/05/24 09:59 Phytonadione (Phytonadione Inj 10 Mg/Ml Amp) 10 mg IV X1 ONE Stop: 09/06/24 08:28 Sennosides (Senna Tablet) 1 tab PO QDAY PRN; Protocol PRN Reason: constipation Stop: 10/04/24 22:53 Assessment & Plan Plan Patient is a 29-year-old male with history 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 Patient was recently hospitalized for similar symptoms, however left AMA prior to completing medical treatment. Today at bedside, patient reports improvement to his pain however has received pain medication. Abdominal/pelvis CT at time of admission revealed cirrhosis, large right pleural effusion, mild ascites, and concerns for appendicitis. General surgery team has been consulted, however patient's INR was 1.7 on admission improving to 1.6 after vitamin K supplementation. Patient denies any fevers at this time. Blood cultures from 09/04 are negative on 24-hour preliminary reads, pleural fluid analysis from 08/29 revealed Staph hominis SSP hominis, peritoneal fluid from 08/29 revealed Pseudomonas aeruginosa and Enterococcus faecium grp D. Infectious disease team consulted for peritonitis. #Spontaneous bacterial peritonitis ? Blood cultures 09/04 negative lump luminary reads ? Pleural fluid analysis from 08/29 revealed Staph hominis SSP hominis ? Peritoneal fluid from 08/29 revealed Pseudomonas aeruginosa and Enterococcus faecium grp D ? Has received antibiotics both inpatient and outpatient prior to today's evaluation Plan ? Do not recommend prolonged antibiotics ? Advise oral linezolid 600 mg twice daily and oral ciprofloxacin 500 mg twice daily through 09/09 #Cirrhosis secondary to alcohol use disorder #Alcohol use disorder #Appendicitis #Leukocytosis #Hyperbilirubinemia #Right-sided pleural effusion - Management per primary team Patient case discussed with attending physician Dr. Lesvia Lopez, DO PGY-3
--- NOTE | 2024-09-06 16:04 | ESPR_ITS ---
Documentation for date of: 09/06/24 Subjective Subjective Interval history: Patient was seen and examined bedside. No acute overnight events. Sitting on the bed and having pudding. Still complaining of abdominal pain and discomfort more on the right side. Also stated that he had 4 bowel movements this morning and denies blood or blackish discoloration of stools. Denies fever, nausea, vomitings. Dr. Lakhani was consulted in view of Pseudomonas and Enterococcus isolated from ascitic fluid during last hospital stay as patient was untreated at that time as he left AGAINST MEDICAL ADVICE. Dr Lakhani recommended oral ciprofloxacin and linezolid. Planning to discharge tomorrow on oral antibiotics. Exam Vital Signs Temp Pulse Resp BP Pulse Ox O2 Del Method 97.0 F 101 H 18 94/64 98 Room Air 09/06/24 12:00 09/06/24 12:00 09/06/24 12:00 09/06/24 12:00 09/06/24 12:00 09/06/24 12:00 Narrative Exam General: Awake. Icteric. Ill nourished. HEENT: Normocephalic, atraumatic, mucous membranes dry. Heart: Regular rate and rhythm, no murmurs. Lungs: Decreased breath sounds on the basal areas of right lung Abdomen: Soft, distended and tender to touch more on right lower quadrant, epigastric region. Bowel sounds are appreciated Neurologic: Alert and oriented x3, no gross neurological deficit, and patient able to move all 4 extremities. Extremities: No pedal edema. Skin: No rash or ecchymoses. Objective Labs 09/06/24 05:06 09/06/24 05:06 Labs: Laboratory Results - last 24 hr 09/05/24 09/06/24 09/06/24 17:40 00:30 05:06 WBC 8.3 RBC 2.61 L Hgb 8.5 L Hct 25.7 L MCV 99 MCH 32.6 MCHC 33.1 RDW Std Deviation 50.8 H Plt Count 223 Neut % (Auto) 77 Lymph % (Auto) 9 L [place] % (Auto) 9 Eos % (Auto) 5 Baso % (Auto) 1 Neut # (Auto) 6.4 Lymph # (Auto) 0.7 L [place] # (Auto) 0.7 Eos # (Auto) 0.4 Baso # (Auto) 0.1 Immature Gran # (Auto) 0.06 H Absolute Nucleated RBC 0.00 Immature Gran % 1 H Nucleated RBC % 0 PT 17.0 H 17.0 H INR 1.6 H 1.6 H Sodium 134 L Potassium 3.7 Chloride 106 Carbon Dioxide 21.3 Anion Gap 7 BUN 10 Creatinine 0.6 Estim Creat Clear Calc 142.3 eGFR > 60 BUN/Creatinine Ratio 17 Glucose 76 Calculated Osmolality 266 L Calcium 8.6 Corrected Calcium 9.6 Total Bilirubin 3.9 H AST 49 H ALT 27 Alkaline Phosphatase 95 Total Protein 6.7 Albumin 2.7 L Globulin 4.0 H Albumin/Globulin Ratio 0.7 L 09/06/24 13:54 WBC RBC Hgb Hct MCV MCH MCHC RDW Std Deviation Plt Count Neut % (Auto) Lymph % (Auto) [place] % (Auto) Eos % (Auto) Baso % (Auto) Neut # (Auto) Lymph # (Auto) [place] # (Auto) Eos # (Auto) Baso # (Auto) Immature Gran # (Auto) Absolute Nucleated RBC Immature Gran % Nucleated RBC % PT 17.2 H INR 1.6 H Sodium Potassium Chloride Carbon Dioxide Anion Gap BUN Creatinine Estim Creat Clear Calc eGFR BUN/Creatinine Ratio Glucose Calculated Osmolality Calcium Corrected Calcium Total Bilirubin AST ALT Alkaline Phosphatase Total Protein Albumin Globulin Albumin/Globulin Ratio Quality Measures Quality Measures VTE prophylaxis (SCDs) Assessment & Plan Assessment Current Active Medications: Generic Name Dose Route Start Last Admin Trade Name Freq PRN Reason Stop Dose Admin Acetaminophen 650 mg 09/04/24 22:54 Acetaminophen 325 Mg Tablet PO 10/04/24 22:53 Q6H PRN Pain 1-3 and/or Fever >100.1 Hydrocodone Bitart/Acetaminophen 1 tab 09/05/24 14:53 09/06/24 13:15 Hydrocodone/Apap 5/325 Tablet PO 09/10/24 14:52 1 tab Q4HR PRN Administration pain 4-6 Ciprofloxacin 500 mg 09/06/24 21:00 Ciprofloxacin Hcl 250 Mg Tablet PO 09/09/24 20:59 BID [facility] Hydromorphone HCl 0.5 mg 09/05/24 14:53 09/06/24 15:43 Hydromorphone Inj 2 Mg/Ml Vial IVP 09/09/24 23:56 0.5 mg Q4H PRN Administration Pain 7-10 Lactulose 10 gm 09/05/24 06:00 09/06/24 13:15 Lactulose Syrup 20 Gm/30 Ml Udc PO 10/05/24 05:59 10 gm TID [facility] Administration Protocol Linezolid 600 mg 09/06/24 21:00 Linezolid 600 Mg Tablet PO 09/09/24 20:59 BID [facility] Ondansetron HCl 4 mg 09/04/24 22:54 Ondansetron Inj 2 Mg/Ml Inj 2 Ml IV 10/04/24 22:53 Q6H PRN NAUSEA OR VOMITING Protocol Pantoprazole Sodium 40 mg 09/05/24 09:00 09/06/24 09:05 Pantoprazole Inj 40 Mg Vial IVP 10/05/24 08:59 40 mg QDAY [facility] Administration Plan 29-year-old male with past medical history of cirrhosis secondary to alcohol use disorder, esophageal varices, and cholecystostomy was admitted to the hospital on 09/04/2024 due to possible spontaneous bacterial peritonitis in the setting of cirrhosis. #Cirrhosis secondary to alcohol use disorder #Alcohol use disorder #SBP #Appendicitis #Leukocytosis, resolved #Hyperbilirubinemia ?Patient came in with abdominal pain ? Patient states that he has abstained from alcohol for the last 4 to 5 months. ?Abdomen/pelvis CT showed cirrhosis, large right pleural effusion, mild ascites, and findings concerning for appendicitis ? Per general Gram stain culture was positive for Enterococcus and Pseudomonas in past admission ?Patient's initial INR was 1.7 and repeat was 1.6 today ?WBCs 8.3 today ? Child-Vail score of 10 ?MELD NA score of 20 Plan: ?Will continue Zosyn and vancomycin [09/05/2024?] ?Gave 10 mg of vitamin K ?Blood cultures showed no growth after 24 hours. -Dr Lakhani was consulted and recommended oral ciprofloxacin and linezolid ? General Surgery consulted, pressure recommendations #Right-sided pleural effusion ? Chest x-ray showed recurrence of right-sided pleural effusion ? This is most likely in the setting of cirrhosis Plan: ? Consider ultrasound-guided thoracentesis # Normochromic anemia ? Likely anemia chronic disease ?Hemoglobin 8.5 today ? Ferritin 1094 and TIBC 183 Plan: ?Will replete of hemoglobin less than 7 ? Will continue to monitor Disposition: continue Vanc/Zosyn Diet: PUD GI prophylaxis: Protonix DVT prophylaxis: SCDs Code:Full Patient plan of care was discussed with the attending physician, Dr. Gala Chairez, PGY1 Attending Provider Attestation/Addendum I have discussed and was present for the essential components of the history, physical examination, diagnosis, and treatment plan with the resident. I agree with the patient's care as documented by the resident and amended herein by me. Ady Quezada, DO. Although this document has been carefully reviewed, there may still be some phonetic and other typographical errors. These errors are purely grammatical due to imperfections in the software program and should not be construed in any way to compromise the substance of the patient's medical care during this visit.
[2024-09-06] MEDS: LINEZOLID 600 MG TABLET PO (20:18)
[2024-09-06] MEDS: CIPROFLOXACIN HCL 250 MG TABLET 500 MG PO (20:19)
[2024-09-07] VITALS (7 sets, daily range): BP systolic 92–111; BP diastolic 62–76; PULSE 96–106; RESP 18–23; TEMP 36.2–36.5; O2SAT 96–99; BMI 21.4
[2024-09-07] MEDS: HYDROmorphone INJ 2 MG/ML VIAL 0.5 MG IVP ×3 (00:32→15:25)
[2024-09-07] MEDS: LACTULOSE SYRUP 20 GM/30 ML UDC 10 GM PO ×2 (05:23→14:43)
[2024-09-07 06:24] LABS: Basophils # (Auto) 0.1 Thou/mm3 (0.0-0.2); Basophils % (Auto) 1 % (0-2.5); Eosinophils # (Auto) 0.4 Thou/mm3 (0.0-0.5); Eosinophils % (Auto) 6 % (0-10); Hematocrit 23.9 % (41.0-53.0); Immature Granulocytes % (Auto) 1 % (0-0); Immature Granulocytes Auto 0.04 Thou/mm3 (0.00-0.00); Lymphocytes % (Auto) 13 % (10-50); Mean Corpuscular HGB Conc 33.5 g/dl (31.0-37.0); Mean Corpuscular Hemoglobin 32.4 pg (25.0-35.0); Mean Corpuscular Volume 97 fL (80-100); Monocytes # (Auto) 0.8 Thou/mm3 (0.0-0.8); Monocytes % (Auto) 10 % (0-12); Neutrophils # (Auto) 5.5 Thou/mm3 (1.8-7.7); Neutrophils % (Auto) 71 % (37-80); Nucleated Red Blood Cell % 0 /100 WBC (0); Platelet Count 234 Thou/mm3 (140-440); RDW Standard Deviation 51.5 fL (35.1-43.9); Red Blood Count 2.47 Miln/mm3 (4.50-5.90); White Blood Count 7.8 Thou/mm3 (3.8-10.6)
[2024-09-07 07:03] LABS: Alanine Aminotransferase 28 U/L (10-49); Albumin, Serum 2.6 gm/dL (3.5-5.0); Albumin/Globulin Ratio 0.7 (1.2-2.2); Alkaline Phosphatase 96 U/L (46-116); Anion Gap 6 (7-16); Aspartate Amino Transferase 68 U/L (0-34); BUN/Creatinine Ratio 14 Ratio (12-20); Bilirubin,Total 3.1 mg/dL (0.3-1.2); Blood Urea Nitrogen 10 mg/dL (9-23); Calcium 8.6 mg/dL (8.3-10.6); Calcium (Corrected) 9.7 mg/dL (8.5-10.1); Carbon Dioxide 21.8 mMol/L (20.0-31.0); Chloride 105 mMol/L (98-107); Creatinine (Component) 0.7 mg/dL (0.6-1.3); Estimated Creatinine Clearance 126.4 mL/min (>60); Glucose 94 mg/dL (74-106); Osmolality,Calculated 265 (275-295); Potassium 3.6 mMol/L (3.4-5.1); Sodium 133 mMol/L (136-145); Total Protein 6.6 gm/dL (5.7-8.2); eGFR > 60 See Note
--- NOTE | 2024-09-07 08:12 | XR_ITS ---
Examination: AP chest single view Technique one AP portable upright chest single view Exam date and time: September 07, 2024 0911 hrs. Comparison September 04, 2024 Indications: Shortness of breath this week, right lung pneumonia and right pleural fluid on chest film September 04, 2024 Findings: Again noted pneumonia right mid and lower lung zone with large layered right pleural effusion Mild enlargement cardiac contour with mild vascular congestion Impression: Significant right lung pneumonia Large layered right pleural effusion
[2024-09-07] MEDS: PANTOPRAZOLE INJ 40 MG VIAL IVP (09:10)
[2024-09-07] MEDS: LINEZOLID 600 MG TABLET PO (09:10)
[2024-09-07] MEDS: CIPROFLOXACIN HCL 250 MG TABLET 500 MG PO (09:10)
[2024-09-07] MEDS: HYDROcodone/APAP 5/325 TABLET 1 TAB PO ×2 (09:18→14:46)
[2024-09-07 12:01] LABS: HIV (1&2) Antibody Rapid Non-Reactive
[2024-09-07] MEDS: SPIRONOLACTONE 25 MG TABLET PO (14:42)
--- NOTE | 2024-09-07 15:34 | PD.RESDS ---
Planned Discharge Date 09/07/24 DS: Providers Provider Date of admission: 09/04/24 22:54 Primary care physician: Michael Munroe MD Admitting Provider: Steve Ayers MD Attending Provider on Admission: Anton Quezada DO Consults: 09/05/24 01:29 Consult to General Surgery Routine Comment: Consulting Provider: Laura Pinzon 09/06/24 10:18 Consult to Infectious Diseases Routine Comment: pseudomonas and enteroccoccus in peritoneal fluid Consulting Provider: Tyrone Lakhani Attending Provider on DC: Julian Chairez MD Discharging Provider: Julian Chairez MD DS: Diagnosis Problem List Completed Was Problem List Reviewed/Reconciled?: Yes Hospital Course Hospital Course Hospital course: 29-year-old male with past medical history of end-stage liver disease/cirrhosis secondary to alcohol use disorder open (has been sober for the past 3 to 4 months) complicated with esophageal varices, cholecystotomy presenting to the ED on 09/04 with subjective fever and severe abdominal pain and admitted for untreated spontaneous bacterial peritonitis. Of note, patient was recently admitted to the hospital for similar complaints; however, he left AMA and was not properly treated for what was suspected to be spontaneous bacterial peritonitis. During hospitalization, patient had right-sided thoracentesis likely secondary to decompensated liver disease. Pertinent lab findings include WBC 11.0, hemoglobin 10.3 with MCV of 94, platelets 221, BUN 12, creatinine 0.6, lactic acid 1.5, albumin 2.9, INR 1.6. Chest x-ray showed significant right lung pneumonia along with moderate right-sided pleural effusion. CT abdomen pelvis read by tele-radiologist as acute appendicitis and small complex ascites likely peritonitis. Dr Pinzon was consulted and recommended no surgery as of now as patient condition is getting improved and also risk of surgery in view of high INR of 1.6. Patient was treated with vancomycin and Zosyn initially. Later Dr. Lakhani was consulted who recommended ciprofloxacin and linezolid orally for 5 days. Chest x-ray showed large right pleural effusion. Patient had recent ultrasound-guided thoracocentesis of 1.8 L on 08/29/2024 which showed exudative pattern. Despite having thoracocentesis of 1.8 L, patient found to have accumulated a large right pleural effusion. As the patient is currently on room air and anticipated to have reaccumulation even after thoracocentesis, no thoracocentesis is done during this hospital admission. Recommended patient to follow-up with the primary care and also recommended patient to return to the ED if patient had shortness of breath or pain in the right chest Patient is discharged to home with the following medications and recommendations Follow up with your PCP within 1 week of discharge. Obtain referral to liver transplant center for evaluation Complete antibiotics course as prescribed (linezolid 600mg twice daily, ciprofloxacin 500mg twice daily for 5 days total) Started on Propranolol 10mg daily prophylactically for Portal HTN. PCP to re-evaluate dose. Take lactulose daily with a goal of 2-3 bowel movements per day Continue home meds as previously prescribed Continue to abstain from alcohol #Cirrhosis secondary to alcohol use disorder #Alcohol use disorder #SBP, resolved #Appendicitis, resolved #Leukocytosis, resolved #Hyperbilirubinemia #Right-sided pleural effusion # Normochromic anemia Patient plan of care was discussed with the attending physician, Dr. Pilar Chairez, PGY1 Time Spent with Patient Time attestation: Total time spent providing and/or coordinating discharge services: Time spent: Greater than 30 minutes Exam Vital Signs Temp Pulse Resp BP Pulse Ox O2 Del Method 97.7 F 103 H 20 111/70 98 Room Air 09/07/24 11:03 09/07/24 14:42 09/07/24 11:03 09/07/24 14:42 09/07/24 11:03 09/07/24 11:03 Narrative Exam General: Awake. ill nourished. HEENT: Normocephalic, atraumatic, mucous membranes moist. Heart: Regular rate and rhythm, no murmurs. Lungs: Decreased breath sounds on the right side of chest. Abdomen: Soft, distended, mild tenderness in the epigastric area, positive bowel sounds. ?No guarding or rebound tenderness. Neurologic: Alert and oriented x3, no gross neurological deficit, and patient able to move all 4 extremities. Extremities: No peripheral edema. Skin: No rash or ecchymoses. Discharge Plan Plan Patient Disposition: HOME (Self Care) Patient condition on transfer: Stable Care Plan Goals: Follow up with your PCP within 1 week of discharge. Obtain referral to liver transplant center for evaluation Complete antibiotics course as prescribed (linezolid 600mg twice daily, ciprofloxacin 500mg twice daily for 5 days total) Started on Propranolol 10mg daily prophylactically for Portal HTN. PCP to re-evaluate dose. Take lactulose daily with a goal of 2-3 bowel movements per day Continue home meds as previously prescribed Continue to abstain from alcohol [facility] Dr. Chairez [phone] Prescriptions/Referrals Prescriptions/Med Rec: New ciprofloxacin HCl 500 mg tablet 500 mg PO BID 5 Days Qty: 9 0RF linezolid 600 mg Tablet 600 mg PO BID 5 Days Qty: 9 0RF lactulose 20 gram/30 mL Solution 10 g PO TID 30 Days Qty: 1350 0RF propranolol 10 mg tablet 10 mg PO DAILY 30 Days Qty: 30 0RF iron ag,[id number] 150 mg iron- 60 mg-1 mg tablet 1 tab PO QDAY 30 Days Qty: 30 0RF Continued thiamine HCl (vitamin B1) 100 mg tablet 100 mg PO QDAY Patient Comments: TAKE 1 TABLET BY MOUTH EVERY DAY FOR 30 DAYS tramadol 50 mg tablet 50 mg PO BID PRN (Reason: Pain) Patient Comments: TAKE 1 TABLET BY MOUTH TWICE A DAY NEEDED FOR PAIN FOR 15 DAYS spironolactone 25 mg tablet 25 mg PO QDAY Patient Comments: TAKE 1 TABLET BY MOUTH EVERY DAY FOR 30 DAYS gabapentin 300 mg capsule 300 mg PO QDAY Patient Comments: TAKE 1 CAPSULE BY MOUTH EVERY DAY FOR 30 DAYS folic acid 1 mg tablet 1 mg PO QDAY Patient Comments: TAKE 1 TABLET BY MOUTH EVERY DAY FOR 30 DAYS Referrals: Michael Munroe MD [Primary Care Provider] - Patient/Caregiver Discharge Instructions Discharge Activity: resume usual activities Education Materials: Understanding Liver Transplants, Hepatic Encephalopathy, Treating Cirrhosis Print Language: Tamazight Stand Alone Forms: Yes[employer] Award Info., Patient Portal Info Letter Discharge Order Discharge Orders: Discharge (Routine); Ordered 09/07/24 Ordered By: Julio Cesar Jimenes Quality Discharge Quality Measures VTE prophylaxis Attestestation Attestation I have discussed and was present for the essential components of the discharge history, physical examination, diagnosis, and discharge treatment plan with the resident. I agree with the patient's discharge care as documented by the resident and amended herein by me. Ady Quezada DO. The patient understood all discharge instructions, all questions were answered satisfactorily. The patient was instructed to return to the Emergency Department is symptoms worsened or persisted. Will not pursue additional thoracentesis for patient's right lung recurrent, pleural effusion. Patient is largely asymptomatic, on room air, we did consult with pulmonology who agreed with plan. Patient will need very close follow-up with primary care physician and will need outpatient follow-up with hepatobiliary specialist and/or transplant surgeon for ESLD. Patient was discharged with a short course of linezolid and ciprofloxacin through Monday for SBP per infectious disease recommendations. The patient was stable, afebrile, tolerating p.o. intake and ambulatory at time of discharge. All questions were answered. Although this document has been carefully reviewed, there may still be some phonetic and other typographical errors. These errors are purely grammatical due to imperfections in the software program and should not be construed in any way to compromise the substance of the patient's medical care during this visit.
== END 2024-09-07 17:21 | disposition home or self-care (01) | DRG 254 ==
LOC: SERX 20:55 → SERHOLD 23:10 → S2NX 09-05 18:00
PROVIDERS: Internal Medicine Infectious Disease; Physician Assistant; Student in an Organized Health Care Education/Training Program; Admitting Provider Student in an Organized Health Care Education/Training Program; Emergency Provider Emergency Medicine; PCP Family Medicine; Visit Provider Student in an Organized Health Care Education/Training Program
DX: K35.30 Acute appendicitis with localized peritonitis, without perforation or gangrene (principal); R64 Cachexia; Z68.20 Body mass index [BMI] 20.0-20.9, adult; K72.10 Chronic hepatic failure without coma; J90 Pleural effusion, not elsewhere classified; D63.8 Anemia in other chronic diseases classified elsewhere; D68.9 Coagulation defect, unspecified; K70.31 Alcoholic cirrhosis of liver with ascites
CPT/HCPCS: 36415; 71045; 74177; 80053; 80202; 82150; 82728; 82945; 83540; 83550; 83605; 83615; 83690; 83735; 84100; 84145; 84157; 84439; 84443; 85025; 85610; 86703; 87040; 87081; 89051; 96361; 96365; 96366; 96367; 96375; 99285; A4649; J2270; J2470; J2543; J3372; J3430; J3490; J7030; P9047; Q9967; A9270; J1836

== ENCOUNTER 2024-09-11 17:06 | Emergency (ER) | payer MEDICAID, SELFPAY ==
[2024-09-11 17:07] VITALS: BMI 21.6
[2024-09-11 17:27] VITALS: BP 111/72; PULSE 87; RESP 16; TEMP 37.2; O2SAT 100
--- NOTE | 2024-09-11 17:40 | XR_ITS ---
Examination: PA lateral chest 2 views Technique: Upright PA lateral chest 2 views Exam date and time: September 11, 2024 7051 hours Comparison September 07, 2024 Indications: Difficulty breathing this week, history right lung pneumonia and layering right pleural fluid on chest film August 30, 2024 Findings: Bilateral perihilar and significant right basilar pneumonia Inspiratory effort is reduced Large right pleural effusion Suspicious for mild associated heart failure, mild enlargement cardiac contour, vascular congestion and fluid in the fissures on the lateral view The osseous structures are intact Impression: Bilateral perihilar and significant right basilar pneumonia Large right pleural effusion Suspicious for mild associated heart failure
--- NOTE | 2024-09-11 17:40 | PD.EDRME ---
Rapid Medical Screening Exam RME Arrival date/time: 09/11/24 17:06 29-year-old male with medical history significant for cirrhosis presents emergency department complaint of abdominal pain and shortness of breath Chief Complaint: Shortness of Breath/Dyspnea Vital signs: Vital Signs Temperature 99 F 09/11/24 17:27 Pulse Rate 87 09/11/24 17:27 Respiratory Rate 16 09/11/24 17:27 Blood Pressure 111/72 09/11/24 17:27 Pulse Oximetry (%) 100 09/11/24 17:27 Oxygen Delivery Method Room Air 09/11/24 17:27
[2024-09-11 18:07] LABS: Basophils # (Auto) 0.1 Thou/mm3 (0.0-0.2); Basophils % (Auto) 1 % (0-2.5); Eosinophils # (Auto) 0.3 Thou/mm3 (0.0-0.5); Eosinophils % (Auto) 4 % (0-10); Hematocrit 27.8 % (41.0-53.0); Hemoglobin 9.5 g/dL (13.5-16.0); Immature Granulocytes % (Auto) 1 % (0-0); Immature Granulocytes Auto 0.04 Thou/mm3 (0.00-0.00); Lymphocytes # (Auto) 1.1 Thou/mm3 (1.0-4.8); Lymphocytes % (Auto) 13 % (10-50); Mean Corpuscular HGB Conc 34.2 g/dl (31.0-37.0); Mean Corpuscular Hemoglobin 33.5 pg (25.0-35.0); Mean Corpuscular Volume 98 fL (80-100); Monocytes # (Auto) 0.8 Thou/mm3 (0.0-0.8); Monocytes % (Auto) 10 % (0-12); Neutrophils # (Auto) 5.8 Thou/mm3 (1.8-7.7); Neutrophils % (Auto) 72 % (37-80); Nucleated Red Blood Cell % 0 /100 WBC (0); Platelet Count 215 Thou/mm3 (140-440); RDW Standard Deviation 54.7 fL (35.1-43.9); Red Blood Count 2.84 Miln/mm3 (4.50-5.90); White Blood Count 8.1 Thou/mm3 (3.8-10.6)
[2024-09-11 18:27] LABS: B-Type Natriuretic Peptide 449 pg/mL (0-100)
[2024-09-11 18:28] LABS: Troponin I < 0.002 ng/mL (0.0-0.045)
[2024-09-11 18:29] LABS: Alanine Aminotransferase 33 U/L (10-49); Albumin, Serum 3.2 gm/dL (3.5-5.0); Albumin/Globulin Ratio 0.7 (1.2-2.2); Alkaline Phosphatase 134 U/L (46-116); Anion Gap 7 (7-16); Aspartate Amino Transferase 80 U/L (0-34); BUN/Creatinine Ratio 14 Ratio (12-20); Bilirubin,Total 4.1 mg/dL (0.3-1.2); Blood Urea Nitrogen 13 mg/dL (9-23); Calcium 9.1 mg/dL (8.3-10.6); Calcium (Corrected) 9.7 mg/dL (8.5-10.1); Carbon Dioxide 26.7 mMol/L (20.0-31.0); Chloride 102 mMol/L (98-107); Creatinine (Component) 0.9 mg/dL (0.6-1.3); Estimated Creatinine Clearance 99.2 mL/min (>60); Globulin 4.7 gm/dL (2.3-3.5); Glucose 96 mg/dL (74-106); Lipase 46 U/L (12-53); Magnesium 1.7 mg/dL (1.6-2.6); Osmolality,Calculated 272 (275-295); Potassium 3.7 mMol/L (3.4-5.1); Sodium 136 mMol/L (136-145); Total Protein 7.9 gm/dL (5.7-8.2); eGFR > 60 See Note
[2024-09-11 19:11] LABS: INR 1.6 (0.9-1.3); Partial Thromboplastin Time 31.4 Seconds (22.0-36.0); Prothrombin Time 16.7 Seconds (9.0-12.2)
[2024-09-11 21:31] LABS: Collection Type, Urine Clean Catch
[2024-09-11 22:06] LABS: Bacteria,Urine Rare; Bilirubin,Urine Negative (Negative); Blood,Urine Negative (Negative); Clarity,Urine Clear (Clear/Hazy); Color,Urine Yellow (Lt Yel-Yel); Glucose, Urine Negative (Negative); Ketones,Urine Negative (Negative); Leukocyte Esterase,Urine Negative (Negative); Nitrite,Urine Negative (Negative); Protein,Urine Trace (Neg - Trace); RBC,Urine 2 /hpf (0-3); Specific Gravity,Urine 1.021 (1.001-1.035); Squamous Epithelial Cell,Urine < 1 /hpf (0-5); Urobilinogen,Urine Negative mg/dL (0.0-1.0); WBC,Urine 3 /hpf (0-5)
[2024-09-11 23:10] LABS: Amphetamine/Methamp Scrn,U Negative (Negative); Barbiturate Screen,Urine Negative (Negative); Benzodiazepines Screen,Urine Negative (Negative); Benzoylecgonine Screen, Ur Negative (Negative); Fentanyl Screen,Urine Positive (Negative); Opiate Screen,Urine Negative (Negative); THC Screen,Urine Negative (Negative)
--- NOTE | 2024-09-11 23:45 | PC.NURSE ---
PATIENT CAME TO [employer] TO ASK HOW MUCH LONG FOR RESULTS. I APOLOGIZED TO PATIENT AND NOTIFIED PROVIDER AND CHARGE NURSE.
--- NOTE | 2024-09-12 03:39 | PC.NURSE ---
PATIENT WAS CALLED N/A PT ELOPED THE ER.
== END 2024-09-12 03:39 | disposition left against medical advice (07) ==
PROVIDERS: Nurse Practitioner Primary Care; Emergency Provider Emergency Medicine; PCP Family Medicine
DX: R06.02 Shortness of breath (principal); R06.00 Dyspnea, unspecified; R10.9 Unspecified abdominal pain; Z53.29 Procedure and treatment not carried out because of patient's decision for other reasons
CPT/HCPCS: 36415; 71046; 80053; 80307; 81001; 83690; 83735; 83880; 84484; 85025; 85610; 85730; 93005; 99283

== ENCOUNTER 2024-09-18 02:53 | Emergency (ER) | payer MEDICAID, SELFPAY ==
[2024-09-18 03:13] VITALS: BP 114/75; PULSE 84; RESP 18; TEMP 37; O2SAT 100; BMI 20.2
--- NOTE | 2024-09-18 03:20 | XR_ITS ---
Examination: PA lateral chest 2 views Technique: Upright PA lateral chest 2 views Exam date and time: September 18, 2024 0329 hrs. Comparison September 11, 2024 Indications: Shortness of breath beginning one week ago, chest x-ray September 11, 2024 significant right base pneumonia with large right pleural effusion Findings: Again noted significant right lung pneumonia with large right pleural effusion Cardiac contour is mildly prominent and there is mild to moderate vascular congestion Osseous structures are intact Impression: Again noted significant right lung pneumonia with large right pleural effusion
--- NOTE | 2024-09-18 03:21 | PD.EDRME ---
Rapid Medical Screening Exam E Arrival date/time: 09/18/24 02:53 29-year-old male past medical history of liver cirrhosis brought emergency department complaining of diffuse abdominal pain and shortness of breath. Chief Complaint: Abdominal Pain Time Seen by Provider: 09/18/24 03:16 Vital signs: Vital Signs Temperature 98.6 F 09/18/24 03:13 Pulse Rate 84 09/18/24 03:13 Respiratory Rate 18 09/18/24 03:13 Blood Pressure 114/75 09/18/24 03:13 Pulse Oximetry (%) 100 09/18/24 03:13 Oxygen Delivery Method Room Air 09/18/24 03:13 Vital signs reviewed by provider: Yes
[2024-09-18 04:00] LABS: Basophils # (Auto) 0.1 Thou/mm3 (0.0-0.2); Basophils % (Auto) 1 % (0-2.5); Eosinophils # (Auto) 0.3 Thou/mm3 (0.0-0.5); Eosinophils % (Auto) 3 % (0-10); Hematocrit 30.6 % (41.0-53.0); Hemoglobin 10.6 g/dL (13.5-16.0); Immature Granulocytes % (Auto) 0 % (0-0); Immature Granulocytes Auto 0.04 Thou/mm3 (0.00-0.00); Lymphocytes # (Auto) 1.3 Thou/mm3 (1.0-4.8); Lymphocytes % (Auto) 14 % (10-50); Mean Corpuscular HGB Conc 34.6 g/dl (31.0-37.0); Mean Corpuscular Hemoglobin 33.8 pg (25.0-35.0); Mean Corpuscular Volume 98 fL (80-100); Monocytes % (Auto) 11 % (0-12); Neutrophils # (Auto) 6.4 Thou/mm3 (1.8-7.7); Neutrophils % (Auto) 71 % (37-80); Nucleated Red Blood Cell % 0 /100 WBC (0); Platelet Count 180 Thou/mm3 (140-440); RDW Standard Deviation 55.7 fL (35.1-43.9); Red Blood Count 3.14 Miln/mm3 (4.50-5.90)
[2024-09-18 04:04] LABS: Alanine Aminotransferase 22 U/L (10-49); Albumin, Serum 3.1 gm/dL (3.5-5.0); Albumin/Globulin Ratio 0.6 (1.2-2.2); Alkaline Phosphatase 130 U/L (46-116); Anion Gap 7 (7-16); Aspartate Amino Transferase 68 U/L (0-34); BUN/Creatinine Ratio 14 Ratio (12-20); Bilirubin,Total 4.8 mg/dL (0.3-1.2); Blood Urea Nitrogen 10 mg/dL (9-23); Calcium 9.3 mg/dL (8.3-10.6); Carbon Dioxide 25.4 mMol/L (20.0-31.0); Chloride 104 mMol/L (98-107); Creatinine (Component) 0.7 mg/dL (0.6-1.3); Estimated Creatinine Clearance 119.6 mL/min (>60); Globulin 5.2 gm/dL (2.3-3.5); Glucose 92 mg/dL (74-106); Lipase 51 U/L (12-53); Osmolality,Calculated 270 (275-295); Potassium 3.9 mMol/L (3.4-5.1); Sodium 136 mMol/L (136-145); Total Protein 8.3 gm/dL (5.7-8.2); eGFR > 60 See Note
[2024-09-18 04:52] LABS: Collection Type, Urine Clean Catch; Squamous Epithelial Cell,Urine 0 /hpf (0-5)
[2024-09-18 05:51] LABS: Bilirubin,Urine Negative (Negative); Blood,Urine Negative (Negative); Budding Yeast,Urine Present; Color,Urine Yellow (Lt Yel-Yel); Culture Indicated,Urine Not Indicated; Glucose, Urine Negative (Negative); Ketones,Urine Negative (Negative); Leukocyte Esterase,Urine Negative (Negative); Nitrite,Urine Negative (Negative); PH,Urine 7.5 (5.0-7.0); Protein,Urine Negative (Neg - Trace); RBC,Urine 4 /hpf (0-3); Specific Gravity,Urine 1.016 (1.001-1.035); WBC,Urine 5 /hpf (0-5)
[2024-09-18 05:53] LABS: Clarity,Urine Hazy (Clear/Hazy)
[2024-09-18 06:06] VITALS: BP 113/72; PULSE 79; RESP 18; TEMP 36.9; O2SAT 100
--- NOTE | 2024-09-18 06:39 | XR_ITS ---
Examination: CT abdomen and pelvis without contrast. Coronal 3-D reconstructions. Sagittal 2-D reconstructions. Date and time of exam:September 18, 2024 at 0745 hrs. Comparison September 05, 2024 Indications: Abdominal pain shortness of breath beginning 2 days ago, diagnosis cirrhosis, splenomegaly, ascites on CT abdomen September 05, 2024 CTDI: vol (mGy): 5.43 DLP: (mGycm): 308 Technique: Axial images of the abdomen have been obtained, 3 mm slice thickness Intravenous contrast material has not been administered. Low dose protocols were performed. One or more of the following dose reduction techniques were used; automated exposure control, adjustment of the mA and/or KV according to patient size, use of iterative reconstruction technique. Findings: Right base pneumonia with moderate to large right pleural fluid Cirrhosis, liver irregular in contour with prominent splenomegaly Portosystemic collateral vessels medial to the spleen, suspicious for esophageal varices Mild ascites Gallbladder is not diagnostically visualized No pancreatic or adrenal mass No hydronephrosis Diffuse thickening of the colonic wagner, hepatic colopathy pattern Diffuse thickening and mild fluid distention of small bowel loops, hepatic enteropathy pattern Normal appendix Urinary bladder wall thickening up to 8 mm No prostatomegaly Moderate disc narrowing L5-S1 with 4 mm central L5-S1 disc bulge axial image 142 Impression: Right base pneumonia Moderate to large right pleural effusion Cirrhosis Prominent splenomegaly Mild ascites Suspicious for esophageal varices Hepatic colopathy, hepatic enteropathy
[2024-09-18] MEDS: KETOROLAC INJ 60 MG/2 ML VIAL 30 MG IM (06:48)
--- NOTE | 2024-09-18 06:54 | PD.EDABDPN ---
ED Abdominal Pain RME/HPI General Chief Complaint: Abdominal Pain Stated complaint: Cant breath fluid in lungs/abd pain Time seen by provider: 09/18/24 03:16 Arrival date/time: 09/18/24 02:53 29-year-old male with a history of cirrhosis, hypertension presents to the emergency room with a chief complaint of 8 out of 10 generalized abdominal pain. Patient states he is also having shortness of breath when laying flat. Source: patient Mode of arrival: ambulatory Limitations: no limitations RME / HPI RME / HPI narrative: 09/18/24 02:53 29-year-old male past medical history of liver cirrhosis brought emergency department complaining of diffuse abdominal pain and shortness of breath. Related Data Home Medications ?Medication ?Instructions ?Recorded ?Confirmed folic acid 1 mg tablet 1 mg PO QDAY 09/04/24 09/04/24 gabapentin 300 mg capsule 300 mg PO QDAY 09/04/24 09/04/24 spironolactone 25 mg tablet 25 mg PO QDAY 09/04/24 09/04/24 thiamine HCl (vitamin B1) 100 mg 100 mg PO QDAY 09/04/24 09/04/24 tablet tramadol 50 mg tablet 50 mg PO BID PRN Pain 09/04/24 09/04/24 Previous Rx's ?Medication ?Instructions ?Recorded lactulose 20 gram/30 mL oral 10 g (15 mL) PO TID 30 days #1,350 09/06/24 solution mL iron 150 mg-vit C 60 mg-folate 1 1 tab PO QDAY 1 month #30 tabs 09/07/24 [id number] tablet propranolol 10 mg tablet 10 mg PO DAILY 1 month #30 tabs 09/07/24 Allergies Allergy/AdvReac Type Severity Reaction Status Date / Time No Known Allergies Allergy Unverified 09/11/24 17:08 Review of Systems Review of Systems Systems Reviewed: All systems reviewed, normal except as documented Constitutional Constitutional: Reports system reviewed and no additional complaints, except as documented, Denies fatigue, Denies fever(s), Denies headache(s) and Denies weakness Eyes Eyes: Reports system reviewed and no additional complaints, except as documented, Denies blurry vision and Denies change in vision ENT Ears, Nose, Mouth, and Throat: Reports system reviewed and no additional complaints, except as documented, Denies otalgia, Denies headache(s), Denies nasal congestion, Denies throat swelling and Denies vertigo Cardiovascular Cardiovascular: Reports system reviewed and no additional complaints, except as documented, Denies chest pain, Reports dyspnea and Reports dyspnea on exertion Respiratory Respiratory: Reports system reviewed and no additional complaints, except as documented, Denies chest congestion, Denies cough, Reports dyspnea, Reports dyspnea on exertion and Denies wheezing Gastrointestinal Gastrointestinal: Reports system reviewed and no additional complaints, except as documented, Reports abdominal pain, Reports cramping, Reports early satiety, Reports nausea and Denies vomiting Genitourinary Genitourinary: Reports system reviewed and no additional complaints, except as documented, Denies dysuria and Denies hematuria Musculoskeletal Musculoskeletal: Reports system reviewed and no additional complaints, except as documented and Denies back pain Integumentary/Breasts Skin/Breast: Reports system reviewed and no additional complaints, except as documented and Denies wounds Neurologic Neurologic: Reports system reviewed and no additional complaints, except as documented, Denies confusion, Denies headache(s), Denies lack of coordination, Denies vertigo and Denies weakness Psychiatric Psychiatric: Reports system reviewed and no additional complaints, except as documented, Denies anxiety, Denies confusion, Denies depression, Denies paranoia, Denies suicidal ideation and Denies tactile hallucinations Endocrine Endocrine: Reports system reviewed and no additional complaints, except as documented and Denies fatigue Hematologic/Lymphatic Hematologic/Lymphatic: Reports system reviewed and no additional complaints, except as documented and Denies lymphadenopathy Allergic/Immunologic Allergic/Immunologic: Reports system reviewed and no additional complaints, except as documented, Denies throat swelling, Denies urticaria and Denies wheezing Past Medical History Past Medical History NEUROLOGIC: Negative Seizures CARDIAC: Negative Cardiac Disorders or Congestive Heart Failure RESPIRATORY: Negative Chronic Obstructive Pulmonary Disease (COPD) or Asthma GASTROINTESTINAL: Positive Cirrhosis GENITOURINARY: Negative Renal Disease ENDOCRINE: Negative Diabetes Mellitus Type 1 or Diabetes Mellitus Type 2 HEMATOLOGIC: Negative Sickle Cell Disease OTHER HISTORY: Positive Blood Transfusions; Negative Blood Transfusion Reaction or Anesthesia Reactions Social History SMOKING STATUS: Never smoker SECOND HAND EXPOSURE: No ED Exam General Limitations: Present no limitations General appearance: Present alert and in no apparent distress Head Head exam: Present atraumatic Eye Eye exam: Present normal appearance, PERRL and EOMI ENT ENT exam: Present normal exam, normal oropharynx and mucous membranes moist Neck Neck exam: Present normal inspection, full ROM and trachea midline Chest Chest inspection: Present normal inspection and symmetric chest wall rise Respiratory Respiratory exam: Present normal lung sounds bilaterally; Absent respiratory distress, wheezes, stridor, accessory muscle use or prolonged expiratory phase Cardiovascular Cardiovascular exam: Present regular rate, normal rhythm and normal heart sounds Abdominal Exam Abdominal exam: Present soft, tenderness and normal bowel sounds; Absent distention, guarding, rebound or rigidity Abdominal tenderness: Present RUQ, RLQ, LUQ, LLQ and moderate Extremities Exam Extremities exam: Present normal inspection and full ROM Back Exam Back exam: Present normal inspection and full ROM Neurological Exam Neurological exam: Present alert, oriented X3 and CN II-XII intact Psychiatric Psychiatric exam: Present normal affect and normal mood Skin Skin exam: Present warm, dry, intact and normal color Course Quality Measures none Orders Category Date Time Status CT abdomen pelvis wo con Stat Exams 09/18/24 06:39 Ordered XR chest 2V Stat Exams 09/18/24 03:20 Taken CBC Stat Lab 09/18/24 03:36 Completed CMP [Comprehensive Metabolic Panel] Stat Lab 09/18/24 03:36 Completed Lipase Stat Lab 09/18/24 03:36 Completed PT [Prothrombin Time with INR] Stat Lab 09/18/24 03:36 Received PTT [Partial Thromboplastin Time] Stat Lab 09/18/24 03:36 Received Urinalysis, C/S if Indicated Stat Lab 09/18/24 04:19 Completed Ketorolac Inj [Toradol Inj] Med 09/18/24 06:39 Discontinued 30 mg IM X1 ONE Vital Signs Vital signs: Vital Signs Temperature 98.6 F 09/18/24 03:13 Pulse Rate 84 09/18/24 03:13 Respiratory Rate 18 09/18/24 03:13 Blood Pressure 114/75 09/18/24 03:13 Pulse Oximetry (%) 100 09/18/24 03:13 Oxygen Delivery Method Room Air 09/18/24 03:13 O2 saturation 100% within normal limits Abdominal Pain MDM MDM Narrative MDM Narrative:: 29-year-old male with a history of cirrhosis, hypertension presents to the emergency room with a chief complaint of 8 out of 10 generalized abdominal pain. Patient states he is also having shortness of breath when laying flat clinically the patient appears nontoxic and in no apparent distress. Physical examination shows 8 out of 10 generalized abdominal pain to the upper and lower parts of the abdomen. Patient states he is having severe shortness of breath when he lays flat. The patient does not appear to distended but there is some tenderness with palpation. The patient has active bowel sounds to all 4 quadrants. Medications / Prescriptions Medication administrations:: Medication Administration History Discontinued Medications Ketorolac Tromethamine (Ketorolac Inj 60 Mg/2 Ml Vial) 30 mg IM X1 ONE Stop: 09/18/24 06:40 Last Admin: 09/18/24 06:48 Dose: 30 mg Documented By: SF Discharge Plan Prescriptions/Referrals Prescriptions/Med Rec: No Action thiamine HCl (vitamin B1) 100 mg tablet 100 mg PO QDAY Patient Comments: TAKE 1 TABLET BY MOUTH EVERY DAY FOR 30 DAYS tramadol 50 mg tablet 50 mg PO BID PRN (Reason: Pain) Patient Comments: TAKE 1 TABLET BY MOUTH TWICE A DAY NEEDED FOR PAIN FOR 15 DAYS spironolactone 25 mg tablet 25 mg PO QDAY Patient Comments: TAKE 1 TABLET BY MOUTH EVERY DAY FOR 30 DAYS gabapentin 300 mg capsule 300 mg PO QDAY Patient Comments: TAKE 1 CAPSULE BY MOUTH EVERY DAY FOR 30 DAYS folic acid 1 mg tablet 1 mg PO QDAY Patient Comments: TAKE 1 TABLET BY MOUTH EVERY DAY FOR 30 DAYS lactulose 20 gram/30 mL Solution 10 g PO TID 30 Days Qty: 1350 0RF propranolol 10 mg tablet 10 mg PO DAILY 30 Days Qty: 30 0RF iron ag,[id number] 150 mg iron- 60 mg-1 mg tablet 1 tab PO QDAY 30 Days Qty: 30 0RF Referrals: Michael Munroe MD [Primary Care Provider] - In 1 week Patient/Caregiver Discharge Instructions Print Language: German
--- NOTE | 2024-09-18 08:28 | PD.EDRME ---
Rapid Medical Screening Exam COUNT INCLUDES THE [facility] Arrival date/time: 09/18/24 02:53 29-year-old male with a history of cirrhosis, hypertension presents to the emergency room with a chief complaint of 8 out of 10 generalized abdominal pain. Patient states he is also having shortness of breath when laying flat. I have greeted and performed a focused initial assessment of this patient. A comprehensive ED assessment and evaluation of the patient, analysis of all test results, and completion of the medical decision making process will be conducted by additional ED providers. Chief Complaint: Abdominal Pain Time Seen by Provider: 09/18/24 03:16 Vital signs: Vital Signs Temperature 98.6 F 09/18/24 03:13 Pulse Rate 84 09/18/24 03:13 Respiratory Rate 18 09/18/24 03:13 Blood Pressure 114/75 09/18/24 03:13 Pulse Oximetry (%) 100 09/18/24 03:13 Oxygen Delivery Method Room Air 09/18/24 03:13 Vital signs reviewed by provider: Yes
[2024-09-18 09:01] VITALS: BP 104/48; PULSE 67; RESP 16; TEMP 36.8; O2SAT 100
[2024-09-18 09:13] LABS: INR 1.5 (0.9-1.3); Partial Thromboplastin Time 33.1 Seconds (22.0-36.0); Prothrombin Time 15.8 Seconds (9.0-12.2)
--- NOTE | 2024-09-18 09:50 | EDNOTE_ITS ---
ED SOB =RME/HPI General Chief Complaint: Abdominal Pain Stated Complaint: Cant breath fluid in lungs/abd pain Time Seen by Provider: 09/18/24 03:16 Arrival date/time: 09/18/24 02:53 RME / HPI RME / HPI Narrative: 09/18/24 02:53 29-year-old male with a history of cirrhosis, hypertension presents to the emergency room with a chief complaint of 8 out of 10 generalized abdominal pain. Patient states he is also having shortness of breath when laying flat. I have greeted and performed a focused initial assessment of this patient. A comprehensive ED assessment and evaluation of the patient, analysis of all test results, and completion of the medical decision making process will be conducted by additional ED providers. This section includes all my notes and documentations, including HPI, PE, and ED course.? Alexy Agosto MD HPI: 29 year old male with history of liver failure, liver cirrhosis, cholecystitis, s/p cholecystostomy that was placed ~ 3 months ago and removed 2 weeks ago presents to the ED for evaluation of shortness of breath and generalized abdominal pain beginning 2-3 days ago. Aggravated while lying flat. Reports history of shortness of breath and previously diagnosed with pleural effusion and symptoms today are similar to that. No other complaints reported. Denies fevers, chills, chest pain, nausea, vomiting, or urinary symptoms. ROS: All negative except as documented in HPI. Physical Exam: General:? Alert and oriented.? No acute distress when remaining still.?? Eyes:? Conjunctivae and lids clear.? ENT:? No nasal congestion.? Neck:? Supple.? Heart:? RRR.? Lungs:? No respiratory distress.? Good air movement.? No rhonchi, wheezing, rales.?? Abdomen:? Soft and nontender.?? Legs:? No clubbing, cyanosis, edema.? Skin:? Warm and dry.?? Neuro:? Alert and oriented X 3.?? I reviewed all diagnostic test results. My interpretation of the chest x-ray is stable with right sided pleural effusion and/or pneumonia. My review of the abdominal CT report is?cirrhosis. Blood tests and urine tests?stable. At this point, diagnoses include?cirrhosis and right pleural effusion and pneumonia. Recommended transfer to tertiary center. Patient declined. Discussed potential risks, including worsening and sudden . Patient understood but still declined and requested going home. Based on my best medical judgment, made decision no further evaluation or treatment indicated at this time.? Patient understands and agrees to the discharge instructions customized and printed, see below. Discharge Instructions from Dr. Agosto printed for you: 1. For your pneumonia, take Zithromax and cefdinir as prescribed. 2. For your fluid outside of your right lung and in your abdomen, take Lasix as prescribed. This will help you urinate out extra fluid in your body. When resting or sleeping, elevate the head of bed and elevate your feet/ankles above your waist level. This is extremely important to get your extra fluid into your blood vessels so you can urinate out the fluid. And avoid excessive drinking fluid, only when you are very thirsty. 3. Zofran for nausea/vomiting. Tramadol for severe pain. 4. See a private doctor on 09/19/2024 for recheck and further care. Ask to review all test results and official radiology reports, to make sure you receive all necessary follow-ups and monitoring. Ask for help seeing a liver specialist and lung specialist. Ask for help until you are completely better. 5. Seek immediate medical care with worsening or with any concerns. Alexy Agosto MD Related Data Home Medications ?Medication ?Instructions ?Recorded ?Confirmed folic acid 1 mg tablet 1 mg PO QDAY 09/04/24 09/04/24 gabapentin 300 mg capsule 300 mg PO QDAY 09/04/24 09/04/24 spironolactone 25 mg tablet 25 mg PO QDAY 09/04/24 09/04/24 thiamine HCl (vitamin B1) 100 mg 100 mg PO QDAY 09/04/24 09/04/24 tablet tramadol 50 mg tablet 50 mg PO BID PRN Pain 09/04/24 09/04/24 Previous Rx's ?Medication ?Instructions ?Recorded lactulose 20 gram/30 mL oral 10 g (15 mL) PO TID 30 days #1,350 09/06/24 solution mL iron 150 mg-vit C 60 mg-folate 1 1 tab PO QDAY 1 month #30 tabs 09/07/24 [id number] tablet propranolol 10 mg tablet 10 mg PO DAILY 1 month #30 tabs 09/07/24 azithromycin 500 mg tablet 500 mg PO QDAY 3 days #3 tabs 09/18/24 (Zithromax TRI-AMERICO) cefdinir 300 mg capsule 300 mg PO BID #14 caps 09/18/24 furosemide 20 mg tablet (Lasix) 20 mg PO QDAY #30 tabs 09/18/24 ondansetron 4 mg disintegrating 4 mg PO TID PRN nausea and 09/18/24 tablet vomiting 5 days #10 tabs tramadol 100 mg tablet 100 mg PO BID PRN pain #20 tabs 09/18/24 Allergies Allergy/AdvReac Type Severity Reaction Status Date / Time No Known Allergies Allergy Unverified 09/11/24 17:08 Review of Systems Review of Systems Systems Reviewed: All systems reviewed, normal except as documented Past Medical History Past Medical History GASTROINTESTINAL: Positive Cirrhosis OTHER HISTORY: Positive Blood Transfusions Social History SMOKING STATUS: Never smoker SECOND HAND EXPOSURE: No ED Exam Narrative Physical exam: As noted in HPI Course Quality Measures none Orders Category Date Time Status CT abdomen pelvis wo con Stat Exams 09/18/24 06:39 Completed XR chest 2V Stat Exams 09/18/24 03:20 Completed CBC Stat Lab 09/18/24 03:36 Completed CMP [Comprehensive Metabolic Panel] Stat Lab 09/18/24 03:36 Completed Lipase Stat Lab 09/18/24 03:36 Completed PT [Prothrombin Time with INR] Stat Lab 09/18/24 03:36 Completed PTT [Partial Thromboplastin Time] Stat Lab 09/18/24 03:36 Completed Urinalysis, C/S if Indicated Stat Lab 09/18/24 04:19 Completed Ketorolac Inj [Toradol Inj] Med 09/18/24 06:39 Discontinued 30 mg IM X1 ONE Vital Signs Vital signs: Vital Signs Temperature 98.6 F 09/18/24 03:13 Pulse Rate 84 09/18/24 03:13 Respiratory Rate 18 09/18/24 03:13 Blood Pressure 114/75 09/18/24 03:13 Pulse Oximetry (%) 100 09/18/24 03:13 Oxygen Delivery Method Room Air 09/18/24 03:13 Pulse ox is 100% on room air which is adequate. Shortness of Breath / Dyspnea MDM Narrative MDM Narrative:: Kavya Carrion am scribing for and in the presence of Dr. Agosto. Patient data External records reviewed:: [facility] previous records (I reviewed admission from 09/04/2024 through 09/07/2024) Clinical information provided by:: patient Social determinants that could affect healthcare access:: none (although was former heavy alcohol drinker ) Patient has the following chronic illnesses:: Liver failure, liver cirrhosis, cholecystitis, s/p cholecystostomy that was placed ~ 3 months ago and removed 2 weeks ago hx of pleural effusion How is presenting disease/condition affected by chronic disease/condition?: exacerbated by Evaluation data The following diagnostics were reviewed and interpreted by me:: lab results and radiology exam(s) Lab and/or radiology exams considered but not ordered:: None Interpretation Summary: Cirrhosis and pleural effusion and pneumonia Medications / Prescriptions Medications or Prescriptions considered but not ordered:: None Medication administrations:: Medication Administration History Discontinued Medications Ketorolac Tromethamine (Ketorolac Inj 60 Mg/2 Ml Vial) 30 mg IM X1 ONE Stop: 09/18/24 06:40 Last Admin: 09/18/24 06:48 Dose: 30 mg Documented By: SF Patient given Toradol Consultations Consultation(s) initiated? (list below): No Diagnosis Shortness of Breath Differential Diagnosis: acute exacerbation of chronic obstructive airways disease, congestive heart failure, community acquired pneumonia, asthma with exacerbation and other (Cirrhosis, pleural effusion) Most likely diagnosis given after review of the tests above:: Cirrhosis Pleural effusion on the right Pneumonia Admission Indicated Admission indicated?: not indicated Explain why admission is indicated or not indicated:: Admission criteria not met Admission Request Was there a request for admission?: No Disposition Plan Disposition Plan: Discharge Discharge Attestation Discharge Attestation: The patient and all family members were given an opportunity to ask questions and understood the discharge instructions. Discharge instructions specifically effects, indications for sooner follow up or return to the emergency department, and the expected course of current diagnosis. Patient condition: Stable Discharge Plan Plan Patient Disposition: HOME (Self Care) Prescriptions/Referrals Prescriptions/Med Rec: New ondansetron 4 mg tablet,disintegrating 4 mg PO TID PRN (Reason: nausea and vomiting) 5 Days Qty: 10 0RF cefdinir 300 mg capsule 300 mg PO BID Qty: 14 0RF azithromycin [Zithromax TRI-AMERICO] 500 mg tablet 500 mg PO QDAY 3 Days Qty: 3 0RF tramadol 100 mg tablet 100 mg PO BID PRN (Reason: pain) Qty: 20 0RF furosemide [Lasix] 20 mg tablet 20 mg PO QDAY Qty: 30 0RF No Action thiamine HCl (vitamin B1) 100 mg tablet 100 mg PO QDAY Patient Comments: TAKE 1 TABLET BY MOUTH EVERY DAY FOR 30 DAYS tramadol 50 mg tablet 50 mg PO BID PRN (Reason: Pain) Patient Comments: TAKE 1 TABLET BY MOUTH TWICE A DAY NEEDED FOR PAIN FOR 15 DAYS spironolactone 25 mg tablet 25 mg PO QDAY Patient Comments: TAKE 1 TABLET BY MOUTH EVERY DAY FOR 30 DAYS gabapentin 300 mg capsule 300 mg PO QDAY Patient Comments: TAKE 1 CAPSULE BY MOUTH EVERY DAY FOR 30 DAYS folic acid 1 mg tablet 1 mg PO QDAY Patient Comments: TAKE 1 TABLET BY MOUTH EVERY DAY FOR 30 DAYS lactulose 20 gram/30 mL Solution 10 g PO TID 30 Days Qty: 1350 0RF propranolol 10 mg tablet 10 mg PO DAILY 30 Days Qty: 30 0RF iron [id number] 150 mg iron- 60 mg-1 mg tablet 1 tab PO QDAY 30 Days Qty: 30 0RF Referrals: Michael Munroe MD [Primary Care Provider] - In 1 week Problem List Clinical Impression: Cirrhosis, Pleural effusion on right, Pneumonia Patient/Caregiver Discharge Instructions Education Materials: ED Cirrhosis, ED Pleural Effusion, ED Pneumonia (Adult) Additional Instructions: Discharge Instructions from Dr. Agosto printed for you: 1. For your pneumonia, take Zithromax and cefdinir as prescribed. 2. For your fluid outside of your right lung and in your abdomen, take Lasix as prescribed. This will help you urinate out extra fluid in your body. When resting or sleeping, elevate the head of bed and elevate your feet/ankles above your waist level. This is extremely important to get your extra fluid into your blood vessels so you can urinate out the fluid. And avoid excessive drinking fluid, only when you are very thirsty. 3. Zofran for nausea/vomiting. Tramadol for severe pain. 4. See a private doctor on 09/19/2024 for recheck and further care. Ask to review all test results and official radiology reports, to make sure you receive all necessary follow-ups and monitoring. Ask for help seeing a liver specialist and lung specialist. Ask for help until you are completely better. 5. Seek immediate medical care with worsening or with any concerns. Print Language: South Sudanese Stand Alone Forms: [employer] Award Info., Patient Portal Info Letter
[2024-09-18 11:05] VITALS: BP 110/53; PULSE 63; RESP 18; TEMP 37; O2SAT 99
== END 2024-09-18 11:19 | disposition home or self-care (01) ==
PROVIDERS: Emergency Provider Emergency Medicine; PCP Family Medicine
DX: J18.9 Pneumonia, unspecified organism (principal); K74.60 Unspecified cirrhosis of liver; J90 Pleural effusion, not elsewhere classified
CPT/HCPCS: 36415; 71046; 74176; 80053; 81001; 83690; 85025; 85610; 85730; 96372; 99284; J1885

== ENCOUNTER 2025-03-24 11:18 | Emergency (ER) | payer MEDICAID, SELFPAY ==
[2025-03-24] VITALS (7 sets, daily range): BP systolic 110–134; BP diastolic 70–82; PULSE 68–96; RESP 17–19; TEMP 36.7–37.1; O2SAT 96–100; BMI 25.3
--- NOTE | 2025-03-24 | XR_ITS ---
MRI abdomen, without contrast. MRCP Date and time of exam: March 24, 2025, 1933 hours INDICATIONS: Diagnosis cirrhosis, cholelithiasis, gallbladder wall thickening, common bile duct enlarged on ultrasound study today Technique: Multiple axial and coronal images of the abdomen have been obtained with the Siemens 1.5T MRI scanner. Images obtained included T1 weighted transverse images, T2-weighted transverse images, T2-weighted transverse images fat-suppressed, T2 weighted haste fat suppressed transverse images, T1 weighted images, in and out of phase images, T2-weighted coronal images, breath hold, T2 weighted haze coronal images as well as T2 weighted coronal thick slab images, MRCP. Findings: Hepatomegaly, 17 cm liver irregular in contour Tiny gallstones Common bile duct enlarged, 7 mm No definite common bile duct stones Significant splenomegaly No pancreatic mass No ascites No hydronephrosis IMPRESSION: Cirrhosis Splenomegaly Negative for ascites Cholelithiasis, negative for cholecystitis Mild enlargement common bile duct, no common bile duct stones
--- NOTE | 2025-03-24 12:04 | PD.EDRME ---
Rapid Medical Screening Exam RME Arrival date/time: 03/24/25 11:18 Chief Complaint: Nausea/Vomiting/Diarrhea Vital signs: Vital Signs Temperature 98.3 F 03/24/25 11:31 Pulse Rate 96 03/24/25 11:31 Respiratory Rate 17 03/24/25 11:31 Blood Pressure 134/78 H 03/24/25 11:31 Pulse Oximetry (%) 96 03/24/25 11:31 Oxygen Delivery Method Room Air 03/24/25 11:31 Pulse ox is 96% room air Vital signs reviewed by provider: Yes RME Narrative: Patient tells me he has has a past medical history to include cirrhosis of the liver. Today he complains of shortness of breath and that he has been vomiting yellow liquid. He vomited up to 2 times last night. Complains of severe abdominal pain.
[2025-03-24 12:55] LABS: INR 1.2 (0.9-1.3); Partial Thromboplastin Time 32.2 Seconds (22.0-36.0); Prothrombin Time 13.2 Seconds (9.0-12.2)
[2025-03-24 13:21] LABS: Basophils # (Auto) 0.0 Thou/mm3 (0.0-0.2); Basophils % (Auto) 1 % (0-2.5); Eosinophils # (Auto) 0.1 Thou/mm3 (0.0-0.5); Eosinophils % (Auto) 2 % (0-10); Hematocrit 35.7 % (41.0-53.0); Hemoglobin 13.2 g/dL (13.5-16.0); Immature Granulocytes Auto 0.01 Thou/mm3 (0.00-0.00); Lymphocytes # (Auto) 1.1 Thou/mm3 (1.0-4.8); Lymphocytes % (Auto) 17 % (10-50); Mean Corpuscular HGB Conc 37.0 g/dl (31.0-37.0); Mean Corpuscular Hemoglobin 32.2 pg (25.0-35.0); Mean Corpuscular Volume 87 fL (80-100); Monocytes # (Auto) 0.4 Thou/mm3 (0.0-0.8); Monocytes % (Auto) 6 % (0-12); Neutrophils # (Auto) 4.7 Thou/mm3 (1.8-7.7); Neutrophils % (Auto) 75 % (37-80); Nucleated Red Blood Cell # 0.00 Thou/mm3 (0.00-0.00); Nucleated Red Blood Cell % 0 /100 WBC (0); Platelet Count 102 Thou/mm3 (140-440); RDW Standard Deviation 39.3 fL (35.1-43.9); Red Blood Count 4.10 Miln/mm3 (4.50-5.90); White Blood Count 6.3 Thou/mm3 (3.8-10.6)
[2025-03-24 13:31] LABS: Alanine Aminotransferase 25 U/L (10-49); Albumin, Serum 4.1 gm/dL (3.5-5.0); Albumin/Globulin Ratio 1.2 (1.2-2.2); Alkaline Phosphatase 134 U/L (46-116); Anion Gap 10 (7-16); Aspartate Amino Transferase 35 U/L (0-34); BUN/Creatinine Ratio 11 Ratio (12-20); Bilirubin,Total 1.6 mg/dL (0.3-1.2); Blood Urea Nitrogen 9 mg/dL (9-23); Calcium 9.4 mg/dL (8.3-10.6); Calcium (Corrected) 9.4 mg/dL (8.5-10.1); Carbon Dioxide 23.0 mMol/L (20.0-31.0); Chloride 110 mMol/L (98-107); Creatinine (Component) 0.8 mg/dL (0.6-1.3); Estimated Creatinine Clearance 111.0 mL/min (>60); Globulin 3.5 gm/dL (2.3-3.5); Glucose 119 mg/dL (74-106); Lipase 34 U/L (12-53); Osmolality,Calculated 284 (275-295); Potassium 3.6 mMol/L (3.4-5.1); Sodium 143 mMol/L (136-145); Total Protein 7.6 gm/dL (5.7-8.2); eGFR > 60 See Note
[2025-03-24 14:44] LABS: Collection Type, Urine Clean Catch
[2025-03-24 15:00] LABS: Bilirubin,Urine Negative (Negative); Blood,Urine Negative (Negative); Clarity,Urine Clear (Clear/Hazy); Color,Urine Yellow (Lt Yel-Yel); Glucose, Urine Negative (Negative); Ketones,Urine Negative (Negative); Leukocyte Esterase,Urine Negative (Negative); Nitrite,Urine Negative (Negative); PH,Urine 5.5 (5.0-7.0); Protein,Urine Trace (Neg - Trace); RBC,Urine 5 /hpf (0-3); Specific Gravity,Urine 1.028 (1.001-1.035); Squamous Epithelial Cell,Urine < 1 /hpf (0-5); Urobilinogen,Urine 2.0 mg/dL (0.0-1.0); WBC,Urine 4 /hpf (0-5)
--- NOTE | 2025-03-24 15:24 | PD.EDADULT ---
ED General RME/HPI General Chief complaint: Nausea/Vomiting/Diarrhea Stated complaint: Vomiting, urine dark, abd. pain Time Seen by Provider: 03/24/25 15:24 Arrival date/time: 03/24/25 11:18 RME / HPI RME / HPI narrative: Patient tells me he has has a past medical history to include cirrhosis of the liver. Today he complains of shortness of breath and that he has been vomiting yellow liquid. He vomited up to 2 times last night. Complains of severe abdominal pain. Related Data Home Medications ?Medication ?Instructions ?Recorded ?Confirmed folic acid 1 mg tablet 1 mg PO QDAY 09/04/24 09/04/24 gabapentin 300 mg capsule 300 mg PO QDAY 09/04/24 09/04/24 spironolactone 25 mg tablet 25 mg PO QDAY 09/04/24 09/04/24 thiamine HCl (vitamin B1) 100 mg 100 mg PO QDAY 09/04/24 09/04/24 tablet tramadol 50 mg tablet 50 mg PO BID PRN Pain 09/04/24 09/04/24 Previous Rx's ?Medication ?Instructions ?Recorded cefdinir 300 mg capsule 300 mg PO BID #14 caps 09/18/24 furosemide 20 mg tablet (Lasix) 20 mg PO QDAY #30 tabs 09/18/24 tramadol 100 mg tablet 100 mg PO BID PRN pain #20 tabs 09/18/24 Allergies Allergy/AdvReac Type Severity Reaction Status Date / Time No Known Allergies Allergy Verified 03/24/25 11:24 Review of Systems Review of Systems Systems Reviewed: All systems reviewed, normal except as documented ED Exam Narrative Physical exam: GENERAL: NAD, AAOx3 HEENT: Moist mucosa. Eyes open, symmetrical, & clear CARDIO: Heart RRR, no obvious murmurs PULM: decreaed BS bilaterally GI: Abdomen soft, nondistended, tenderness accross all 4 quadrants, more pronounced on right side. BSx4 SKIN/MSK/EXT: No wounds/rashes/edema/amputations, no pain on palpation. Pedal pulses present B/L NEURO: AAOx3, no focal neuro deficits, able to move all 4 extremities Course Course Course Narrative: see [facility] Quality Measures none Orders Category Date Time Status Bedside COVID-19 Antigen Test NOW Care 03/24/25 15:54 Completed Bedside Influenza A&B Antigen Test NOW Care 03/24/25 15:54 Completed Insert IV NOW Care 03/24/25 15:52 Completed MRI Screening NOW Care 03/24/25 17:[address] abdomen pelvis wo con Stat Exams 03/24/25 15:50 Completed CXRP [XR chest 1V portable] Stat Exams 03/24/25 15:50 Completed MR MRCP Stat Exams 03/24/25 Completed US gall bladder Stat Exams 03/24/25 16:08 Completed CBC Stat Lab 03/24/25 12:29 Completed Comprehensive Metabolic Panel Stat Lab 03/24/25 12:29 Completed Lactic Acid [Lactate (Lactic Acid)] Stat Lab 03/24/25 16:12 Completed Lipase Stat Lab 03/24/25 12:29 Completed PT [Prothrombin Time with INR] Stat Lab 03/24/25 12:29 Completed PTT [Partial Thromboplastin Time] Stat Lab 03/24/25 12:29 Completed Urinalysis Stat Lab 03/24/25 14:34 Completed Furosemide Inj [Lasix Inj] Med 03/24/25 17:02 Discontinued 40 mg IVP X1 ONE HYDROcodone*/APAP 5/325 [[place] 5/325] Med 03/25/25 01:01 Discontinued 1 tab PO X1 ONE HYDROcodone*/APAP 5/325 [[place] 5/325] Med 03/25/25 04:19 Discontinued 1 tab PO X1 ONE HYDROmorphone INJ [Dilaudid Inj] Med 03/24/25 15:52 Discontinued 0.25 mg IVP X1 ONE HYDROmorphone INJ [Dilaudid Inj] Med 03/24/25 17:45 Discontinued 0.25 mg IVP X1 ONE Ketorolac Inj [Toradol Inj] Med 03/25/25 01:00 Discontinued 15 mg IVP X1 ONE Lidocaine 2% Viscous [Xylocaine 2% Viscous] Med 03/24/25 23:37 Discontinued 15 ml PO X1 ONE Morphine Inj Med 03/24/25 22:12 Discontinued 5 mg IVP X1 ONE Ondansetron Inj [Zofran Inj] Med 03/24/25 15:54 Discontinued 4 mg IVP X1 ONE Ondansetron Inj [Zofran Inj] Med 03/24/25 22:12 Discontinued 4 mg IVP X1 ONE cefTRIAXone/D5w 1gm IV premix [Rocephin/D5w 1gm IV Med 03/24/25 17:02 Discontinued premix] 1 gm in 50 ml IV X1 mg Hyd/Al Hyd/Cari Susp [Maalox Susp] Med 03/24/25 23:37 Discontinued 30 ml PO X1 ONE Vital Signs Vital signs: Vital Signs Temperature 98.3 F 03/24/25 11:31 Pulse Rate 96 03/24/25 11:31 Respiratory Rate 17 03/24/25 11:31 Blood Pressure 134/78 H 03/24/25 11:31 Pulse Oximetry (%) 96 03/24/25 11:31 Oxygen Delivery Method Room Air 03/24/25 11:31 Discharge Plan Plan Patient Disposition: HOME (Self Care) Prescriptions/Referrals Prescriptions/Med Rec: No Action cefdinir 300 mg capsule 300 mg PO BID Qty: 14 0RF tramadol 100 mg tablet 100 mg PO BID PRN (Reason: pain) Qty: 20 0RF furosemide [Lasix] 20 mg tablet 20 mg PO QDAY Qty: 30 0RF thiamine HCl (vitamin B1) 100 mg tablet 100 mg PO QDAY Patient Comments: TAKE 1 TABLET BY MOUTH EVERY DAY FOR 30 DAYS tramadol 50 mg tablet 50 mg PO BID PRN (Reason: Pain) Patient Comments: TAKE 1 TABLET BY MOUTH TWICE A DAY NEEDED FOR PAIN FOR 15 DAYS spironolactone 25 mg tablet 25 mg PO QDAY Patient Comments: TAKE 1 TABLET BY MOUTH EVERY DAY FOR 30 DAYS gabapentin 300 mg capsule 300 mg PO QDAY Patient Comments: TAKE 1 CAPSULE BY MOUTH EVERY DAY FOR 30 DAYS folic acid 1 mg tablet 1 mg PO QDAY Patient Comments: TAKE 1 TABLET BY MOUTH EVERY DAY FOR 30 DAYS Referrals: Michael Munroe MD [Primary Care Provider] - In 1 week Problem List Clinical Impression: Biliary colic Patient/Caregiver Discharge Instructions Education Materials: ED Gallstones with Biliary Colic Print Language: Turkmen Stand Alone Forms: [employer] Award Info., Patient Portal Info Letter MDM Narrative MDM hospital course: 30 y/o M with PMHx of alcoholic cirrhosis who presented to the ED due to shortness of breath. Patient states that he started feeling weird around 2-3 days ago, feeling weak with generalized body aches. He also endorses some shortness of breath that has gotten so bad that he uses pillows on his back to be able to sleep as he cannot lay flat. he also endorses some abdominal pain more pronounced in the Right side rated 8/10 with associated yellow vomiting that started today. He also states that hes pending TIPS procedure in [place] for his cirrhosis. 1540: CBC normocytic anemia, CMP shows elevated T. Bili and AST, CXR and CT abdomen ordered, gallbladder US ordered, dilaudid 0.25mg IVx1 ordered 1639: CXR shows right sided Pneumonia, CT abdomen shows Small right pleural effusion, Cirrhosis with fatty infiltration in the liver, Prominent splenomegaly, Cholelithiasis, Mild bilateral renal parenchyma scar formation, Normal appendix, No bowel obstruction or diverticulitis, Lasix 40mg IV x1 and Ceftriaxone given 1730: gallbladder US shows Cholelithiasis, Borderline thickening gallbladder wall, Abnormally enlarged common bile duct 0.7 cm although no definite stones, but given his prior history of cholecystostomy tube will order MRCP. MRCP ordered will sign out to Dr. Queen for final disposition Clinical Information Provided by patient Medical Records Reviewed [facility] Chronic Illness/Social Conditions which may negatively complicate care or outcome(s)-explain: Liver disease Lab Interpretation Labs: interpreted by il Lab(s) interpretation(s): normocytic anemia, thrombocytopenia, elevated T.Bili and AST, UA negative for UTI Imaging Radiology reports / interpretation(s): see radiology report Medication Administration(s) Medication Administration History Discontinued Medications Hydrocodone Bitart/Acetaminophen (Hydrocodone/Apap 5/325 Tablet) 1 tab PO X1 ONE Stop: 03/25/25 01:02 Last Admin: 03/25/25 01:17 Dose: 1 tab Documented By: CCT Hydrocodone Bitart/Acetaminophen (Hydrocodone/Apap 5/325 Tablet) 1 tab PO X1 ONE Stop: 03/25/25 04:20 Last Admin: 03/25/25 04:26 Dose: 1 tab Documented By: CCT Al Hydrox/Mg Hydrox/Simethicone (Mg Hyd/Al Hyd/Cari (Maalox Reg) Susp 30 Ml Udc) 30 ml PO X1 ONE Stop: 03/24/25 23:38 Last Admin: 03/24/25 23:57 Dose: 30 ml Documented By: CCT Furosemide (Furosemide Inj 10 Mg/Ml 4ml Vial) 40 mg IVP X1 ONE Stop: 03/24/25 17:03 Last Admin: 03/24/25 18:03 Dose: 40 mg Documented By: RD Hydromorphone HCl (Hydromorphone Inj 2 Mg/Ml Vial) 0.25 mg IVP X1 ONE Stop: 03/24/25 15:53 Last Admin: 03/24/25 16:15 Dose: 0.25 mg Documented By: RD Hydromorphone HCl (Hydromorphone Inj 2 Mg/Ml Vial) 0.25 mg IVP X1 ONE Stop: 03/24/25 17:46 Last Admin: 03/24/25 18:02 Dose: 0.25 mg Documented By: RD Ceftriaxone Sodium/Dextrose (Rocephin/D5w 1gm Iv Premix) 1 gm in 50 mls @ 100 mls/hr IV X1 ONE Stop: 03/24/25 17:31 Last Infusion: 03/24/25 18:40 Dose: Infused Documented By: Admin: 03/24/25 18:04 Dose: 100 mls/hr Documented By: RD Ketorolac Tromethamine (Ketorolac Inj 30 Mg/Ml Vial) 15 mg IVP X1 ONE Stop: 03/25/25 01:01 Lidocaine HCl (Lidocaine Viscous 2% 15 Ml Udc) 15 ml PO X1 ONE Stop: 03/24/25 23:38 Last Admin: 03/24/25 23:57 Dose: 15 ml Documented By: CCT Morphine Sulfate (Morphine Sulf Inj 10 Mg/Ml Vial) 5 mg IVP X1 ONE Stop: 03/24/25 22:13 Last Admin: 03/24/25 22:22 Dose: 5 mg Documented By: CCT Ondansetron HCl (Ondansetron Inj 2 Mg/Ml Inj 2 Ml) 4 mg IVP X1 ONE; Protocol Stop: 03/24/25 15:55 Last Admin: 03/24/25 16:10 Dose: 4 mg Documented By: RD Ondansetron HCl (Ondansetron Inj 2 Mg/Ml Inj 2 Ml) 4 mg IVP X1 ONE Stop: 03/24/25 22:13 Last Admin: 03/24/25 22:22 Dose: 4 mg Documented By: CCT Diagnosis Differential diagnosis: decompensated liver cirrhosis, SBP, hypervolemia
--- NOTE | 2025-03-24 15:50 | XR_ITS ---
Examination: CT abdomen and pelvis without contrast. Coronal 3-D reconstructions. Sagittal 2-D reconstructions. Date and time of exam:March 24, 2025 1621 hours Comparison September 18, 2024 INDICATIONS: Onset mid abdominal pain today CTDI: vol (mGy): 6.56 DLP: (mGycm): 795 Technique: Axial images of the abdomen have been obtained, 3 mm slice thickness Intravenous contrast material has not been administered. Low dose protocols were performed. One or more of the following dose reduction techniques were used; automated exposure control, adjustment of the mA and/or KV according to patient size, use of iterative reconstruction technique. Findings: Small right pleural effusion Liver irregular in contour with fatty infiltration Prominent splenomegaly Cholelithiasis No pancreatic or adrenal mass No hydronephrosis Mild bilateral renal parenchymal scar formation Normal appendix No bowel obstruction Colonic diverticulosis, no diverticulitis Normal seminal vesicles. No prostatomegaly Urinary bladder intact Moderate disc narrowing L5-S1 IMPRESSION: Small right pleural effusion Cirrhosis with fatty infiltration in the liver Prominent splenomegaly Cholelithiasis Mild bilateral renal parenchyma scar formation. Normal appendix No bowel obstruction or diverticulitis
--- NOTE | 2025-03-24 15:50 | XR_ITS ---
Examination: AP chest single view Technique one AP portable upright chest single view Date and time: March 24, 2025 1603 hours COMPARISON: September 18, 2024 INDICATIONS: Vomiting shortness of breath chest pain today. FINDINGS: Significant pneumonia right base Mild prominence of ventricle Mild vascular congestion Intact osseous structures IMPRESSION: Significant pneumonia right base
--- NOTE | 2025-03-24 16:08 | XR_ITS ---
Examination: Abdomen sonogram, Limited Date and time of exam: March 24, 2025 1626 hours INDICATIONS: Right upper abdominal pain and tenderness with vomiting beginning today, diagnosis cirrhosis one year ago Technique: Real-time pacheco scale transabdominal sonographic images of the upper abdomen obtained. Findings: Cholelithiasis, 8 mm gallstone Gallbladder wall 0.39 cm no edema Common bile duct enlarged 0.7 cm no definite stones Pancreatic head 2.0 cm Liver 17.1 cm fatty infiltration no focal liver lesions. Normal hepatopedal portal venous flow. Patent IVC. IMPRESSION: Cholelithiasis. Borderline thickening gallbladder wall. Abnormally enlarged common bile duct 0.7 cm although no definite stones Consider MRCP follow-up to exclude common bile duct stones and/or stricture
[2025-03-24] MEDS: ONDANSETRON INJ 2 MG/ML INJ 2 ML 4 MG IVP ×2 (16:10→22:22)
[2025-03-24] MEDS: HYDROmorphone INJ 2 MG/ML VIAL 0.25 MG IVP ×2 (16:15→18:02)
[2025-03-24 16:17] LABS: Lactate (Lactic Acid) 0.8 mMol/L (0.4-2.0)
[2025-03-24] MEDS: FUROSEMIDE INJ 10 MG/ML 4ML VIAL 40 MG IVP (18:03)
[2025-03-24] MEDS: cefTRIAXone/D5w 1gm IV premix 1 GM/50 ML BAG IV (18:04)
--- NOTE | 2025-03-24 18:14 | EDNOTE_ITS ---
Emergency Room Addendum Addendum Narrative: 1800: Care assumed from Dr. Celestin (resident emergency physician). Past medical, surgical, social and family history reviewed. Vitals and home medications reviewed. Results and treatment plan discussed. They will assume the care of the patient at this time and will follow the patient, pending MRCP. The following addendum documentation note is intended to reflect any pending information, findings, or radiology results not included in the patient?s init ial chart by the previous shift scribe. RADIOLOGY Cholangiopancreatograph MRI: Findings: Hepatomegaly, 17 cm liver irregular in contour Tiny gallstones Common bile duct enlarged, 7 mm No definite common bile duct stones Significant splenomegaly No pancreatic mass No ascites No hydronephrosis IMPRESSION: Cirrhosis Splenomegaly Negative for ascites Cholelithiasis, negative for cholecystitis Mild enlargement common bile duct, no common bile duct stones 0053: Patient is no longer vomiting, but still complains of RUQ abdominal tenderness and nausea. 0403: Spoke with Dr. Jose. States patient is not a candidate for surgery due to cirrhosis. I have spoken with the patient and discussed today?s findings, in addition to providing specific details for the plan of care. Questions are answered and there is an agreement with the plan. Re-assessment at the time of disposition demonstrates that the patient is in no acute distress. The patient has remained stable throughout the entire ED visit and is without objective evidence for acute process requiring urgent intervention or hospitalization. The patient is stable for discharge; counseling is provided and documented as above, discussing symptomatic treatment and specific conditions for return.
--- NOTE | 2025-03-24 19:23 | PC.NURSE ---
Pt taken to MRI via wheelchair
[2025-03-24] MEDS: MORPHINE SULF INJ 10 MG/ML VIAL 5 MG IVP (22:22)
[2025-03-24] MEDS: MG HYD/AL HYD/SIME (Maalox Reg) SUSP 30 ML UDC PO (23:57)
[2025-03-24] MEDS: LIDOCAINE VISCOUS 2% 15 ML UDC PO (23:57)
[2025-03-25 01:02] VITALS: BP 114/73; PULSE 72; RESP 19; TEMP 37; O2SAT 98
[2025-03-25] MEDS: HYDROcodone/APAP 5/325 TABLET 1 TAB PO ×2 (01:17→04:26)
--- NOTE | 2025-03-25 02:15 | PC.NURSE ---
At this time, pt is alert/oriented x3. Pt states pain medication did help but he still has pain. Rates pain 6/10. Dr. Queen made aware, no new orders received. Per Dr Queen will consult with surgeon oncall. Discussed plan of care with pt, verbalized understanding.
[2025-03-25 03:47] VITALS: BP 102/69; PULSE 65; RESP 18; TEMP 36.6; O2SAT 99
[2025-03-25 05:45] VITALS: BP 107/58; PULSE 78; RESP 18; TEMP 36.8; O2SAT 100
== END 2025-03-25 05:45 | disposition home or self-care (01) ==
PROVIDERS: Physician Assistant; Student in an Organized Health Care Education/Training Program; Emergency Provider Emergency Medicine; PCP Family Medicine
DX: K80.70 Calculus of gallbladder and bile duct without cholecystitis without obstruction (principal); K74.60 Unspecified cirrhosis of liver; J18.9 Pneumonia, unspecified organism; J90 Pleural effusion, not elsewhere classified; R16.1 Splenomegaly, not elsewhere classified; K76.0 Fatty (change of) liver, not elsewhere classified; N28.89 Other specified disorders of kidney and ureter
CPT/HCPCS: 36415; 71045; 74176; 76705; 80053; 81001; 83605; 83690; 85025; 85610; 85730; 87400; 87811; 96365; 96375; 96376; 99285; J0696; J1171; J1938; J2270; J2405; J3490; S8037; 74181; A9270

== ENCOUNTER 2025-03-29 11:10 | Emergency (ER) | payer MEDICAID, SELFPAY ==
[2025-03-29 11:19] VITALS: BP 124/80; PULSE 75; RESP 19; TEMP 36.7; O2SAT 98; BMI 25.2
--- NOTE | 2025-03-29 11:33 | PD.EDRME ---
Rapid Medical Screening Exam RME Arrival date/time: 03/29/25 11:10 30-year-old male returns back for complaints of right upper quadrant pain and generalized pain. Reports history of cirrhosis gallstones. Reports he was here on 24 March has noticed worsening icterus was instructed by PCP to return for evaluation. I have greeted and performed a focused initial assessment of this patient. Initial appropriate labs ordered at this time. A comprehensive ED assessment and evaluation of the patient and analysis of all test and completion of medical decision making process will be conducted by additional ED provider. Chief Complaint: Abdominal Pain Time Seen by Provider: 03/29/25 11:31 Vital signs: Vital Signs Temperature 98.1 F 03/29/25 11:19 Pulse Rate 75 03/29/25 11:19 Respiratory Rate 19 03/29/25 11:19 Blood Pressure 124/80 03/29/25 11:19 Pulse Oximetry (%) 98 03/29/25 11:19 Oxygen Delivery Method Room Air 03/29/25 11:19
[2025-03-29 12:00] LABS: Basophils # (Auto) 0.1 Thou/mm3 (0.0-0.2); Basophils % (Auto) 1 % (0-2.5); Eosinophils # (Auto) 0.3 Thou/mm3 (0.0-0.5); Eosinophils % (Auto) 6 % (0-10); Hematocrit 34.9 % (41.0-53.0); Hemoglobin 12.9 g/dL (13.5-16.0); Immature Granulocytes Auto 0.01 Thou/mm3 (0.00-0.00); Lymphocytes # (Auto) 1.3 Thou/mm3 (1.0-4.8); Lymphocytes % (Auto) 22 % (10-50); Mean Corpuscular HGB Conc 37.0 g/dl (31.0-37.0); Mean Corpuscular Hemoglobin 32.3 pg (25.0-35.0); Mean Corpuscular Volume 88 fL (80-100); Monocytes # (Auto) 0.4 Thou/mm3 (0.0-0.8); Monocytes % (Auto) 7 % (0-12); Neutrophils # (Auto) 3.6 Thou/mm3 (1.8-7.7); Neutrophils % (Auto) 64 % (37-80); Nucleated Red Blood Cell # 0.00 Thou/mm3 (0.00-0.00); Nucleated Red Blood Cell % 0 /100 WBC (0); Platelet Count 109 Thou/mm3 (140-440); RDW Standard Deviation 39.5 fL (35.1-43.9); Red Blood Count 3.99 Miln/mm3 (4.50-5.90); White Blood Count 5.6 Thou/mm3 (3.8-10.6)
[2025-03-29 12:09] LABS: Collection Type, Urine Clean Catch; Squamous Epithelial Cell,Urine 0 /hpf (0-5)
[2025-03-29 12:13] LABS: Bilirubin,Urine Negative (Negative); Blood,Urine Negative (Negative); Clarity,Urine Clear (Clear/Hazy); Color,Urine Yellow (Lt Yel-Yel); Glucose, Urine Negative (Negative); Ketones,Urine Negative (Negative); Leukocyte Esterase,Urine Negative (Negative); Nitrite,Urine Negative (Negative); PH,Urine 5.5 (5.0-7.0); Protein,Urine Negative (Neg - Trace); RBC,Urine 4 /hpf (0-3); Specific Gravity,Urine 1.027 (1.001-1.035); Urobilinogen,Urine 2.0 mg/dL (0.0-1.0); WBC,Urine 4 /hpf (0-5)
[2025-03-29 12:17] LABS: INR 1.2 (0.9-1.3); Prothrombin Time 13.3 Seconds (9.0-12.2)
[2025-03-29 12:23] LABS: Alanine Aminotransferase 22 U/L (10-49); Albumin, Serum 3.8 gm/dL (3.5-5.0); Albumin/Globulin Ratio 1.1 (1.2-2.2); Alkaline Phosphatase 131 U/L (46-116); Anion Gap 9 (7-16); Aspartate Amino Transferase 41 U/L (0-34); BUN/Creatinine Ratio 9 Ratio (12-20); Bilirubin,Total 1.7 mg/dL (0.3-1.2); Blood Urea Nitrogen 9 mg/dL (9-23); Calcium 8.9 mg/dL (8.3-10.6); Calcium (Corrected) 9.1 mg/dL (8.5-10.1); Carbon Dioxide 24.3 mMol/L (20.0-31.0); Chloride 108 mMol/L (98-107); Creatinine (Component) 1.0 mg/dL (0.6-1.3); Estimated Creatinine Clearance 92.3 mL/min (>60); Globulin 3.6 gm/dL (2.3-3.5); Glucose 123 mg/dL (74-106); Lipase 33 U/L (12-53); Magnesium 1.5 mg/dL (1.6-2.6); Osmolality,Calculated 280 (275-295); Potassium 3.4 mMol/L (3.4-5.1); Sodium 141 mMol/L (136-145); Total Protein 7.4 gm/dL (5.7-8.2); eGFR > 60 See Note
--- NOTE | 2025-03-29 13:23 | XR_ITS ---
Examination: Abdomen sonogram, Limited Date and time of exam: March 29, 2025, 1344 hrs. Indications: Onset right upper abdominal pain today. Technique: Real-time pacheco scale transabdominal sonographic images of the upper abdomen obtained. Findings: Multiple gallstones. Gallbladder wall 0.5 cm a edema Common bile duct 0.5 cm Pancreatic head 2.3 cm Liver 16.7 cm smooth contour Normal hepatopedal portal venous oh Patent IVC Mild right pleural fluid Impression: Cholelithiasis, suspicious for acute cholecystitis Consider HIDA scan or MRCP follow-up
--- NOTE | 2025-03-29 13:37 | PC.NURSE ---
PT COMPLAINING OF 9/10 PAIN, WAS TOLD HE HAS GALLSTONES, STATES I JUST WANT SOMETHING FOR THE PAIN AND THAT HIS DOCTOR WANTS THEM TO REMOVE HIS GALLBLADDER. SIGNIFICANT OTHER ON STRETCHER W/PT. WILL CONT W/POC
--- NOTE | 2025-03-29 13:52 | PD.EDABDPN ---
ED Abdominal Pain RME/HPI General Chief Complaint: Abdominal Pain Stated complaint: Right abd. pain gallstones Time seen by provider: 03/29/25 11:31 Arrival date/time: 03/29/25 11:10 RME / HPI RME / HPI narrative: 30-year-old male returns back for complaints of right upper quadrant pain and generalized pain. Reports history of cirrhosis gallstones. Has been getting worse for the last few days. Severity moderate. Reports he was here on 24 March has noticed worsening icterus. Patient denies any vomiting denies any fever. Was instructed by PCP to return for evaluation. Related Data Home Medications ?Medication ?Instructions ?Recorded ?Confirmed folic acid 1 mg tablet 1 mg PO QDAY 09/04/24 09/04/24 gabapentin 300 mg capsule 300 mg PO QDAY 09/04/24 09/04/24 spironolactone 25 mg tablet 25 mg PO QDAY 09/04/24 09/04/24 thiamine HCl (vitamin B1) 100 mg 100 mg PO QDAY 09/04/24 09/04/24 tablet tramadol 50 mg tablet 50 mg PO BID PRN Pain 09/04/24 09/04/24 Previous Rx's ?Medication ?Instructions ?Recorded cefdinir 300 mg capsule 300 mg PO BID #14 caps 09/18/24 furosemide 20 mg tablet (Lasix) 20 mg PO QDAY #30 tabs 09/18/24 tramadol 100 mg tablet 100 mg PO BID PRN pain #20 tabs 09/18/24 dicyclomine 20 mg tablet 20 mg PO QID PRN abdominal pain 03/29/25 #30 tabs Allergies Allergy/AdvReac Type Severity Reaction Status Date / Time No Known Allergies Allergy Verified 03/29/25 11:14 Review of Systems Review of Systems Narrative Review of Systems: Review of system reviewed and within normal limits except mentioned in HPI ED Exam Narrative Physical exam: VITAL SIGNS: Reviewed. GENERAL APPEARANCE: Alert and interactive, follows commands, no acute distress, HEAD AND FACE: Non-traumatic. ENT: PERRL, pink conjunctivitis, eyelid no trauma, Mucous membrane moist. NECK: Supple, nontender, no nuchal rigidity. CHEST: No tenderness, no crepitus, no paradoxical movement, no retractions. LUNGS: Clear, well ventilated, symmetric, no rales, no wheezing, no ronchi, no stridor, good breath sounds bilaterally. HEART: Regular rate, regular rhythm, no murmur, no gallops. ABDOMEN: Soft, positive bowel sounds, nondistended, no guarding, right upper quadrant tenderness, no rebound, no masses, RECTAL: Deferred. GENITAL: Deferred. NEUROLOGICAL: Gross motor function intact sensory function intact, Appropriate for age. MUSCULOSKELETAL: low back nontender, full range of motion. EXTREMITIES: Nontender, full range of motion. SKIN: Color pink, dry, no rash, no lacerations, no abrasions, no contusions. LYMPHATICS: Deferred. Course Quality Measures none Orders Category Date Time Status CT Screening NOW Care 03/29/25 14:23 Active NPO STAT Care 03/29/25 11:[address] abdomen pelvis w con Stat Exams 03/29/25 14:22 Completed US gall bladder Stat Exams 03/29/25 13:23 Completed CBC Stat Lab 03/29/25 11:42 Completed Comprehensive Metabolic Panel Stat Lab 03/29/25 11:42 Completed Lipase Stat Lab 03/29/25 11:42 Completed Magnesium Stat Lab 03/29/25 11:42 Completed Prothrombin Time with INR Stat Lab 03/29/25 11:42 Completed Urinalysis Stat Lab 03/29/25 11:53 Completed Magnesium Sulfate 1 gm Ivpb [Magnesium Sulfate Ivpb] Med 03/29/25 14:24 Discontinued 1 gm in 100 ml IV X1 Morphine Inj Med 03/29/25 14:22 Discontinued 4 mg IVP X1 ONE Ondansetron Inj [Zofran Inj] Med 03/29/25 14:22 Discontinued 4 mg IVP X1 ONE Ringers Lactated 1000 ml [Lactated Ringers] 1,000 ml Med 03/29/25 14:23 Discontinued IV 999 mls/hr Vital Signs Vital signs: Vital Signs Temperature 98.1 F 03/29/25 11:19 Pulse Rate 75 03/29/25 11:19 Respiratory Rate 19 03/29/25 11:19 Blood Pressure 124/80 03/29/25 11:19 Pulse Oximetry (%) 98 03/29/25 11:19 Oxygen Delivery Method Room Air 03/29/25 11:19 Abdominal Pain MDM MDM Narrative MDM Narrative:: 30-year-old male returns back for complaints of right upper quadrant pain and generalized pain. Reports history of cirrhosis gallstones. Has been getting worse for the last few days. Severity moderate. Reports he was here on 24 March has noticed worsening icterus. Patient denies any vomiting denies any fever. Was instructed by PCP to return for evaluation. Laboratory workup was significant for magnesium 1.5, total bili 1.7, alkaline phos of 131 AST of 41. Ultrasound of the gallbladder showed cholelithiasis with possible cholecystitis. Negative Wilson sign. CT scan of the abdomen pelvis showed Recommend PA chest follow-up to exclude heart failure Cirrhosis with significant splenomegaly. Cholelithiasis, no definite cholecystitis Trace ascites Moderate renal scar formation. Normal appendix. No bowel obstruction Patient received IV fluids, magnesium sulfate replacement morphine and Zofran with significant improvement of pain. I spoke with Dr. Pinzon, general surgeon on-call, discussed the case, and told me that patient is not a candidate for emergency surgery at this time patient is not having any acute cholecystitis. Patient can follow-up with PCP for referral to general surgery. Plan of care discussed with the patient and family. Patient data External records reviewed:: None Clinical information provided by:: patient and family Social determinants that could affect healthcare access:: none Patient has the following chronic illnesses:: Liver cirrhosis How is presenting disease/condition affected by chronic disease/condition?: exacerbated by Evaluation data The following diagnostics were reviewed and interpreted by me:: lab results and radiology exam(s) Lab and/or radiology exams considered but not ordered:: None Interpretation Summary: None see results MDM Medications / Prescriptions Medications or Prescriptions considered but not ordered:: None Medication administrations:: Medication Administration History Discontinued Medications Lactated Ringer's (Lactated Ringers) 1,000 mls @ 999 mls/hr IV .Q1H1M ONE Stop: 03/29/25 15:23 Last Infusion: 03/29/25 16:07 Dose: Infused Documented By: Admin: 03/29/25 15:06 Dose: 999 mls/hr Documented By: SHERMAN Magnesium Sulfate/Dextrose (Magnesium Sulfate Ivpb) 1 gm in 100 mls @ 100 mls/hr IV X1 ONE Stop: 03/29/25 15:23 Last Infusion: 03/29/25 16:08 Dose: Infused Documented By: Admin: 03/29/25 15:08 Dose: 100 mls/hr Documented By: SHERMAN Morphine Sulfate (Morphine Sulf Inj 10 Mg/Ml Vial) 4 mg IVP X1 ONE Stop: 03/29/25 14:23 Last Admin: 03/29/25 15:07 Dose: 4 mg Documented By: SHERMAN Ondansetron HCl (Ondansetron Inj 2 Mg/Ml Inj 2 Ml) 4 mg IVP X1 ONE; Protocol Stop: 03/29/25 14:23 Last Admin: 03/29/25 15:07 Dose: 4 mg Documented By: SHERMAN Zofran, morphine IV fluids magnesium sulfate Consultations Consultation(s) initiated? (list below): No Diagnosis Differential diagnosis abdominal pain: abdominal pain, constipation and diverticulitis Most likely diagnosis given after review of the tests above:: Trace abdominal ascites, liver cirrhosis, cholelithiasis Admission Indicated Admission indicated?: not indicated Admission Request Was there a request for admission?: No Disposition Plan Disposition Plan: Discharge Discharge Attestation Discharge Attestation: The patient and all family members were given an opportunity to ask questions and understood the discharge instructions. Discharge instructions specifically effects, indications for sooner follow up or return to the emergency department, and the expected course of current diagnosis. Patient condition: Stable Discharge Plan Plan Patient Disposition: HOME (Self Care) Discharge Disposition comment: Stable Prescriptions/Referrals Prescriptions/Med Rec: New dicyclomine 20 mg tablet 20 mg PO QID PRN (Reason: abdominal pain) Qty: 30 0RF No Action cefdinir 300 mg capsule 300 mg PO BID Qty: 14 0RF tramadol 100 mg tablet 100 mg PO BID PRN (Reason: pain) Qty: 20 0RF furosemide [Lasix] 20 mg tablet 20 mg PO QDAY Qty: 30 0RF thiamine HCl (vitamin B1) 100 mg tablet 100 mg PO QDAY Patient Comments: TAKE 1 TABLET BY MOUTH EVERY DAY FOR 30 DAYS tramadol 50 mg tablet 50 mg PO BID PRN (Reason: Pain) Patient Comments: TAKE 1 TABLET BY MOUTH TWICE A DAY NEEDED FOR PAIN FOR 15 DAYS spironolactone 25 mg tablet 25 mg PO QDAY Patient Comments: TAKE 1 TABLET BY MOUTH EVERY DAY FOR 30 DAYS gabapentin 300 mg capsule 300 mg PO QDAY Patient Comments: TAKE 1 CAPSULE BY MOUTH EVERY DAY FOR 30 DAYS folic acid 1 mg tablet 1 mg PO QDAY Patient Comments: TAKE 1 TABLET BY MOUTH EVERY DAY FOR 30 DAYS Referrals: Michael Munroe MD [Primary Care Provider] - In 1 week Problem List Clinical Impression: Cirrhosis, Abdominal ascites, Cholelithiasis Patient/Caregiver Discharge Instructions Discharge Activity: activity as tolerated Education Materials: What Are Gallstones, Understanding Cirrhosis Additional Instructions: Thank you for the opportunity for serving you today. You are stable for discharged . You are advised to: Follow-up with your PCP in 1 to 2 days and asked for referral to general surgeon regarding your gallstone. Return to ED for worsening of symptoms Increase oral fluids Take medication as prescribed Avoid eating fatty, greasy, fried foods Print Language: Romanian Stand Alone Forms: Yesenia Award Info., Patient Portal Info Letter PA/SUPERVIS[employer] Supervising Physician PA/[employer] Supervising Physician: MD Brianne
[2025-03-29 14:12] VITALS: BP 109/76; PULSE 68; RESP 18; TEMP 36.7; O2SAT 96
--- NOTE | 2025-03-29 14:22 | XR_ITS ---
Examination: CT abdomen with intravenous contrast CT pelvis with intravenous contrast 2-D coronal reconstructions 2-D sagittal reconstructions Date and time of exam:March 29, 2025, 1526 hrs., Comparison March 24, 2025 Indications: Diagnosis cirrhosis with upper abdominal pain beginning 3 days ago. CTDI: vol (mGy) 7.32 DLP: (mGycm) 356 Technique: Multiple axial sections of the abdomen and pelvis have been obtained. 64 slice high-resolution scanner used. 3 mm axial sections have been obtained, post intravenous injection 60 cc [id number]. 2-D sagittal, coronal reconstructions obtained. Low dose protocols were performed. One or more of the following dose reduction techniques were used; automated exposure control, adjustment of the mA and/or KV according to patient size, use of iterative reconstruction technique. Findings: Prominent vascular congestion with minimal right pleural fluid Mild enlargement cardiac contour. Cirrhosis, liver nodular in contour with fatty infiltration, prominent splenomegaly, no focal liver lesions Gallstones No definite thickening of the gallbladder wall. No pancreatic mass Moderate renal scar formation Trace ascites. 10 mm fat-containing umbilical hernia. Normal appendix. Moderate stool throughout the colon. No obstruction. No prostatomegaly. Contracted urinary bladder. Prominent osteopenia Impression: Recommend PA chest follow-up to exclude heart failure Cirrhosis with significant splenomegaly. Cholelithiasis, no definite cholecystitis Trace ascites Moderate renal scar formation. Normal appendix. No bowel obstruction
[2025-03-29] MEDS: RINGERS LACTATED 1000 ML 1,000 ML 999 ML IV (15:06)
[2025-03-29] MEDS: ONDANSETRON INJ 2 MG/ML INJ 2 ML 4 MG IVP (15:07)
[2025-03-29] MEDS: MORPHINE SULF INJ 10 MG/ML VIAL 4 MG IVP (15:07)
[2025-03-29 16:17] VITALS: BP 116/74; PULSE 63; RESP 21; TEMP 36.7; O2SAT 96
== END 2025-03-29 17:59 | disposition home or self-care (01) ==
PROVIDERS: Nurse Practitioner Primary Care; Emergency Provider Family Medicine; PCP Family Medicine
DX: K80.20 Calculus of gallbladder without cholecystitis without obstruction (principal); K74.60 Unspecified cirrhosis of liver; R18.8 Other ascites
CPT/HCPCS: 36415; 74177; 76705; 80053; 81001; 83690; 83735; 85025; 85610; 96365; 96375; 99284; A4649; J2270; J2405; J3475; J7120; Q9967

== ENCOUNTER 2025-09-02 16:43 | Emergency (ER) | payer MEDICAID, SELFPAY ==
[2025-09-02 16:59] VITALS: BP 126/81; PULSE 80; RESP 18; TEMP 36.9; O2SAT 98; BMI 27.4
--- NOTE | 2025-09-02 17:09 | EDRME_ITS ---
Rapid Medical Screening Exam E Arrival date/time: 09/02/25 16:43 30-year-old male presents to the Emergency Department today for complaints of abdominal pain patient reports that he had surgery for his gallbladder in [place] which was a complicated surgery requiring him to return to [place] after the initial surgery patient worse abdominal pain Chief Complaint: Abdominal Pain Vital signs: Vital Signs Temperature 98.5 F 09/02/25 16:59 Pulse Rate 80 09/02/25 16:59 Respiratory Rate 18 09/02/25 16:59 Blood Pressure 126/81 09/02/25 16:59 Pulse Oximetry (%) 98 09/02/25 16:59 Oxygen Delivery Method Room Air 09/02/25 16:59 Vital signs reviewed by provider: Yes Exam: On exam patient has tenderness of the abdomen Clinical Impression: Lab work and imaging ordered patient given pain medication
[2025-09-02] MEDS: HYDROcodone/APAP 5/325 TABLET 1 TAB PO (17:12)
[2025-09-02 17:27] LABS: Basophils # (Auto) 0.0 Thou/mm3 (0.0-0.2); Basophils % (Auto) 1 % (0-2.5); Eosinophils # (Auto) 0.3 Thou/mm3 (0.0-0.5); Eosinophils % (Auto) 5 % (0-10); Hematocrit 32.5 % (41.0-53.0); Hemoglobin 11.2 g/dL (13.5-16.0); Immature Granulocytes Auto 0.01 Thou/mm3 (0.00-0.00); Lymphocytes # (Auto) 1.1 Thou/mm3 (1.0-4.8); Lymphocytes % (Auto) 22 % (10-50); Mean Corpuscular HGB Conc 34.5 g/dl (31.0-37.0); Mean Corpuscular Hemoglobin 30.2 pg (25.0-35.0); Mean Corpuscular Volume 88 fL (80-100); Monocytes # (Auto) 0.3 Thou/mm3 (0.0-0.8); Monocytes % (Auto) 6 % (0-12); Neutrophils # (Auto) 3.4 Thou/mm3 (1.8-7.7); Neutrophils % (Auto) 66 % (37-80); Nucleated Red Blood Cell # 0.00 Thou/mm3 (0.00-0.00); Nucleated Red Blood Cell % 0 /100 WBC (0); Platelet Count 157 Thou/mm3 (140-440); RDW Standard Deviation 40.1 fL (35.1-43.9); Red Blood Count 3.71 Miln/mm3 (4.50-5.90); White Blood Count 5.1 Thou/mm3 (3.8-10.6)
[2025-09-02 17:42] LABS: INR 1.1 (0.9-1.3); Partial Thromboplastin Time 29.1 Seconds (22.0-36.0); Prothrombin Time 11.8 Seconds (9.0-12.2)
[2025-09-02 17:47] LABS: Alanine Aminotransferase 46 U/L (10-49); Albumin, Serum 4.4 gm/dL (3.5-5.0); Albumin/Globulin Ratio 1.2 (1.2-2.2); Alkaline Phosphatase 139 U/L (46-116); Anion Gap 11 (7-16); Aspartate Amino Transferase 47 U/L (0-34); BUN/Creatinine Ratio 8 Ratio (12-20); Bilirubin,Total 0.7 mg/dL (0.3-1.2); Blood Urea Nitrogen 9 mg/dL (9-23); Calcium 9.4 mg/dL (8.3-10.6); Calcium (Corrected) 9.4 mg/dL (8.5-10.1); Carbon Dioxide 26.4 mMol/L (20.0-31.0); Chloride 109 mMol/L (98-107); Creatinine (Component) 1.1 mg/dL (0.6-1.3); Estimated Creatinine Clearance 91.1 mL/min (>60); Globulin 3.7 gm/dL (2.3-3.5); Glucose 95 mg/dL (74-106); Lipase 35 U/L (12-53); Osmolality,Calculated 289 (275-295); Potassium 3.9 mMol/L (3.4-5.1); Sodium 146 mMol/L (136-145); Total Protein 8.1 gm/dL (5.7-8.2); eGFR > 60 See Note
--- NOTE | 2025-09-02 18:58 | PC.NURSE ---
Pt informed me that he is going home.
== END 2025-09-02 19:00 | disposition left against medical advice (07) ==
PROVIDERS: Nurse Practitioner Primary Care; Emergency Provider Family Medicine; PCP Family Medicine
DX: R10.9 Unspecified abdominal pain (principal); Z53.21 Procedure and treatment not carried out due to patient leaving prior to being seen by health care provider
CPT/HCPCS: 36415; 80053; 83690; 85025; 85610; 85730; 99282; A9270